=== PATIENT | female | born 1955 | race Caucasian/White ===

== ENCOUNTER → 2016-11-08 | Outpatient (CLI) | payer OTHER ==
--- NOTE | 2016-11-08 08:21 | CT ---
EXAMINATION TYPE: CT chest wo con DATE OF EXAM: 11/08/2016 6:55 AM COMPARISON: NONE HISTORY: Abn CXR CT DLP: 597.7 mGycm Automated exposure control for dose reduction was used. FINDINGS: Single sclerotic lesion is seen within the left rib cage is nonspecific. There is no pneumothorax, pleural effusion or focal pneumonia. Heart is enlarged and there is coronar y artery calcification. There is tiny punctate nodularity seen within the right lower lobe which is n onspecific could be postinflammatory. Additional 4 mm nodule right middle lobe axial image 33. There appears to be a larger nodule in the medial segment right lower lobe measuring 1.4 cm. Images of the upper abdomen are limited. Appears to be a fat-containing subxiphoid hernia. Atheroscle rotic change aorta. There is a large 2 cm right thyroid nodule. IMPRESSION: 1. THERE IS A 1.4 CM RIGHT LOWER LOBE NODULE. ADDITIONAL LESS THAN 5 MM MULTIPLE PULMONARY NODULES AR E SEEN BILATERALLY GREATER ON THE RIGHT. FINDINGS ARE NONSPECIFIC RECOMMEND PET SCAN. 2. CARDIOMEGALY AND CORONARY ARTERY CALCIUM 3. SINGLE AREA OF SCLEROTIC CHANGE INVOLVING THE LEFT RIB CAGE IS NONSPECIFIC. 4. 2 CM RIGHT THYROID NODULE.
== END | disposition home or self-care (01) ==
LOC: RADCTMAIN 06:38
PROVIDERS: ATTEND Family Medicine
DX: R91.1 Solitary pulmonary nodule (principal); I51.7 Cardiomegaly; J84.10 Pulmonary fibrosis, unspecified
CPT/HCPCS: 71250

== ENCOUNTER → 2016-11-19 | Outpatient (CLI) | payer OTHER ==
--- NOTE | 2016-11-19 11:58 | PE ---
EXAMINATION TYPE: PET CT fusion whole body DATE OF EXAM: 11/19/2016 10:10 AM CLINICAL HISTORY: TECHNIQUE: Following the intravenous administration of mCi of F-18 FDG, whole body images are perfor med from the skull base to the midthigh. Images are reviewed on the computer in the coronal, axial, and sagittal planes. Reconstructed rotating images are created on independent workstation and review ed on the computer. A localization and attenuation correction CT is performed in conjunction with t he PET scan. Glucose level: mg/dL COMPARISON: None. FINDINGS: PET: The 2.3 cm right thyroid nodule shows no discrete FDG uptake. The 1.3 cm right lower lobe pulmonary nodule is demonstrated but shows no discrete FDG uptake. Additi onal scattered 5 mm and smaller pulmonary nodules are too small for adequate PET characterization. Mild heterogeneous liver uptake likely physiologic variation. Intense activity in the region of the cecum, maximal SUV 9.[address] abnormality. Scatter ed additional variable moderate to intense bowel activity is also present such as involving lower ant erior abdominal small bowel loops with maximum SUV 15.1. Findings likely physiologic muscular activit y. Disk-rp-uifxppty uptake at the right gluteal insertion suggesting gluteal insertional tendinopathy. Otherwise, there is physiologic FDG uptake throughout the neck, chest, abdomen, and pelvis. ATTENUATION CORRECTION CT: Visualized paranasal sinuses and mastoid air cells are clear. No cervical lymphadenopathy. Right thyr oid nodule as above. Heart is borderline enlarged without pericardial effusion. Borderline ectasia of the ascending aorta 3.5 cm with conventional arch vessel branching anatomy. No thoracic lymphadenopathy. Right lower lobe 1.3 cm pulmonary nodule is noted to have enlarged from 07/17/2011 where it measured 6 mm. There is mosaic attenuation throughout the lungs suggesting air trapping and small airways dise ase. Mild emphysematous change. Scattered 5 mm and smaller pulmonary nodules seen on recent CT of 10/26 are not well delineated on the attenuation correction CT. There is narrowing of the trachea a nd mainstem bronchi probably due to expiratory imaging and emphysema. No consolidation or pleural eff usion. Slightly diminished attenuation of the hepatic parenchyma suggesting mild hepatic steatosis. Previous ventral abdominal wall hernia repair. The hernia repair appears to be bulging anteriorly by omental fat but still enclosed by the mesh, similar to 2011. No dilated small bowel, free fluid, or free air. No mesenteric or retroperitoneal lymphadenopathy. Since 2010, there has been interval repair of the infraumbilical ventral hernia but with a persisting small hernia enclosed by the mesh. This hernia contains a short segment of small bowel loop. Bladder is nondistended. Uterus surgically absent. Neither ovaries are visualized. No abnormal fluid collect ion in the pelvis. Bones: Degenerative changes at the hips and lower lumbar spine. Endplate spondylosis mid to lower tho racic spine. No osseous destructive process. IMPRESSION: 1. While the 1.3 cm right lower lobe pulmonary nodule has enlarged from 2011 where it measured 6 mm, no discrete hypermetabolism is seen. For the time being, recommend 6, 12, and 24 month follow-up exam s in order to monitor this pulmonary nodule as well as the other 5 mm and smaller pulmonary nodules s een on recent CT. 2. COPD with mild emphysema and prominent air trapping. 3. A 2.3 cm right thyroid nodule shows no discrete hypermetabolism suggesting a benign nodule or cyst .
== END | disposition home or self-care (01) ==
LOC: RADPETMAIN 07:28
PROVIDERS: ATTEND Family Medicine
DX: J43.9 Emphysema, unspecified (principal); R91.1 Solitary pulmonary nodule; E04.1 Nontoxic single thyroid nodule
CPT/HCPCS: 78816; A9552

== ENCOUNTER → 2016-11-23 | Outpatient (CLI) | payer OTHER ==
--- NOTE | 2016-11-23 08:02 | US ---
EXAMINATION TYPE: US thyroid st tissue head/neck DATE OF EXAM: 11/23/2016 7:08 AM COMPARISON: NONE CLINICAL HISTORY: E04.1 Thyroid Nodule. 61-year-old female reports imaging study that showed a thyroi d nodule, no prior thyroid evaluation GLAND SIZE: Right Lobe: 5.9 x 2.7 x 2.5 cm Overall Parenchyma: heterogenous Left Lobe: 4.8 x 1.8 x 1.3 cm Overall Parenchyma: homogeneous Isthmus Thickness: 0.2 cm NODULES RIGHT: # of nodules measured on right: 4 1. 1.3 X 0.7 x 0.9 cm hypoechoic solid nodule at the upper pole with well-defined margins. This no dule is wider than tall and shows intranodular vascularity. Prior size: no previous 2. 2.9 X 2.2 x 2.1 cm complex cystic nodule at the mid pole with well-defined margins. This nodule is wider than tall and shows no intranodular vascularity. Prior size: no previous 3. 2.3 X 1.7 x 2.2 cm hypoechoic solid nodule at the lower pole with well-defined margins. This nod ule is wider than tall and shows intranodular vascularity. Prior size: no previous 4. 0.8 X 0.5 x 0.7 cm hypoechoic probably cystic nodule at the anterior mid pole with well-defined m argins. This nodule is wider than tall and shows no intranodular vascularity. Prior size: no previous LEFT: # of nodules measured on left: 1 1. 1.0 X 1.1 x 0.8 cm hypoechoic solid nodule at the mid pole with well-defined margins. This nodu le is wider than tall and shows no intranodular vascularity. Prior size: no previous ISTHMUS: # of nodules measured in the isthmus: 0 Bilateral neck scanned, no abnormal lymphadenopathy noted. IMPRESSION: 1. Findings likely represent multinodular goiter. 2. Four nodules are present on the right measuring up to 2.9 cm and one on the left measuring up to 1 .1 cm. Biopsy can be considered. However, given that these showed no discrete FDG uptake on the patie nt's recent PET CT, consider the alternative of ultrasound follow-up.
== END | disposition home or self-care (01) ==
LOC: RADUSWWP 06:48
PROVIDERS: ATTEND Family Medicine
DX: E04.2 Nontoxic multinodular goiter (principal)
CPT/HCPCS: 76536

== ENCOUNTER → 2017-03-16 | Outpatient (CLI) | payer OTHER ==
--- NOTE | 2017-03-16 12:42 | XR ---
EXAMINATION TYPE: XR chest 2V DATE OF EXAM: 03/16/2017 COMPARISON: 07/18/2011, 09/07/2017 TECHNIQUE: PA and lateral views submitted. HISTORY: Pulmonary nodule FINDINGS: The lungs are clear and there is no pneumothorax, pleural effusion, or focal pneumonia. There is a nodular density along the right lung base measuring approximately 1.4 cm. Hypertrophic and degenerati ve change of the spine. Heart is mildly prominent. IMPRESSION: 1. No acute process. Right lower lobe pulmonary nodule as noted by previous CT scan
--- NOTE | 2017-03-16 13:17 | US ---
EXAMINATION TYPE: US venous Doppler duplex LE BI DATE OF EXAM: 03/16/2017 11:13 AM COMPARISON: NONE CLINICAL HISTORY: I10 Hypertension M79.89 Leg Swelling. Bilateral LE swelling x 1.5 months, cardiac murmur, HTN SIDE PERFORMED: Bilateral TECHNIQUE: The lower extremity deep venous system is examined utilizing real time linear array sonog tavares with graded compression, Doppler sonography and color-flow sonography. VESSELS IMAGED: Common Femoral Vein Deep Femoral Vein Greater Saphenous Vein * Femoral Vein Popliteal Vein Small Saphenous Vein * Proximal Calf Veins (* superficial vessels) Right Leg: Negative for DVT Left Leg: Negative for DVT Bilateral edema channels are noted within 2cm of skin tissue. No popliteal fossa lesion is seen. IMPRESSION: THIS EXAMINATION IS NEGATIVE FOR DVT WITHIN BOTH LEGS.
== END | disposition home or self-care (01) ==
LOC: RADUSWWP 11:10
PROVIDERS: ATTEND Family Medicine
DX: R91.1 Solitary pulmonary nodule (principal); I10 Essential (primary) hypertension; M79.89 Other specified soft tissue disorders
CPT/HCPCS: 71020; 93970

== ENCOUNTER → 2017-05-03 | Outpatient (CLI) | payer OTHER ==
--- NOTE | 2017-05-03 11:26 | CT ---
EXAMINATION TYPE: CT chest wo con DATE OF EXAM: 05/03/2017 COMPARISON: Prior CT chest 11/08/2016 HISTORY: Follow up to lung nodule CT DLP: 613.6 mGycm. Automated Exposure Control for Dose Reduction was Utilized. TECHNIQUE: CT scan of the thorax is performed without IV contrast. FINDINGS: LUNGS: The lungs are stable, right lower lobe lung nodule measures approximately 17 mm as on prior ex am. Noncalcified right upper lobe and right lower lobe lung nodules again noted., there is no concern ing parenchymal mass or nodule identified. There is no pleural effusion or pneumothorax seen. The tracheobronchial tree is patent. MEDIASTINUM: Lack of IV contrast is noted to limit evaluation for mediastinal and especially hilar ad enopathy. There are no definitive greater than 1 cm hilar or mediastinal lymph nodes. There is stable cardiomegaly or pericardial effusion is seen. Minimal coronary artery calcification. Questionable pr ominence of the pulmonary artery, correlate for possible pulmonary artery hypertension. OTHER: The liver shows low attenuation possibly due to fatty infiltration. Stable sclerotic rib focus on the left at the sixth rib. IMPRESSION: Stable exam, no significant interval change. Correlate for possible pulmonary artery hype rtension.
== END | disposition home or self-care (01) ==
LOC: RADCTMAIN 09:19
PROVIDERS: ATTEND Internal Medicine Critical Care Medicine
DX: R91.8 Other nonspecific abnormal finding of lung field (principal); Z88.3 Allergy status to other anti-infective agents; Z88.5 Allergy status to narcotic agent
CPT/HCPCS: 71250

== ENCOUNTER → 2017-12-13 | Outpatient (CLI) | payer OTHER ==
[2017-12-13 07:04] LABS: Blood Urea Nitrogen 21 mg/dL (7-17)
--- NOTE | 2017-12-13 09:42 | CT ---
EXAMINATION TYPE: CT chest w con DATE OF EXAM: 12/13/2017 COMPARISON: Prior chest CTs from May 03, 2017 and November 08, 2016. Prior PET/CT November 19, 2016 . Thyroid ultrasound November 23, 2016. HISTORY: Multiple lung nodules CT DLP: 921 mGycm. Automated Exposure Control for Dose Reduction was Utilized. TECHNIQUE: CT scan of the thorax is performed following with IV Contrast, patient injected with 100 mL of Isovue 300. FINDINGS: LUNGS: There is stable ametabolic lobulated nodule medially right lower lobe measuring 1.6 x 0.9 cm c urrent study, not significantly changed in size or appearance from prior exams. Hounsfield units aver age 39 on coronal image 90. No new suspicious nodules or masses are identified. Lungs remain clear wi thout pleural effusion or pneumothorax seen bilaterally. MEDIASTINUM: There are no greater than 1 cm hilar or mediastinal lymph nodes. No pericardial effusi on is seen. There is mild cardiomegaly felt stable. There is suspected stable 1.9 cm lower pole righ t thyroid nodule axial image 77. OTHER: Liver is heterogeneously hypodense consistent with fatty infiltration. There is moderate to se brandy multilevel spurring in the thoracic spine with slight S-shaped scoliotic curvature. IMPRESSION: Stable ametabolic 1.6 x 0.9 cm right lower lobe nodule. No new nodules or adenopathy is e vident.
== END | disposition home or self-care (01) ==
LOC: RADCTMAIN 06:28
PROVIDERS: ATTEND Internal Medicine Critical Care Medicine
DX: R91.8 Other nonspecific abnormal finding of lung field (principal)
CPT/HCPCS: 82565; 84520; 71260; 36415; Q9967

== ENCOUNTER → 2018-06-11 | Outpatient (CLI) | payer OTHER ==
--- NOTE | 2018-06-11 10:22 | CT ---
EXAMINATION TYPE: CT chest w con DATE OF EXAM: 06/11/2018 COMPARISON: 12/13/2017 HISTORY: Multiple Lung Nodules CT DLP: 920.2 mGycm Automated exposure control for dose reduction was used. CONTRAST: CT scan of the chest is performed with IV Contrast, patient injected with 100 mL of Isovue 300. FINDINGS: LUNGS: Lobulated pulmonary nodule right lower lobe is unchanged 0.6 x 1.0 cm versus 1.6 x 1.0 cm prev iously. Lateral segment right middle lobe pulmonary nodule measures 4 mm also unchanged. 2 mm nodule superior segment right lower lobe. MEDIASTINUM: There are no greater than 1 cm hilar or mediastinal lymph nodes. No pericardial effusi on is seen. Thoracic aorta is of normal caliber. The heart is not enlarged. UPPER ABDOMEN: There is evidence of hepatic steatosis. 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 Simple cyst upper pole left kidney. OTHER: Right-sided thyroid nodularity. IMPRESSION: 1. Stable pulmonary nodularity. 2. Stable right thyroid nodule. 3. Fatty liver.
== END | disposition home or self-care (01) ==
LOC: RADCTMAIN 07:51
PROVIDERS: ATTEND Internal Medicine Critical Care Medicine
DX: R91.8 Other nonspecific abnormal finding of lung field (principal)
CPT/HCPCS: 82565; 84520; 71260; 36415; Q9967

== ENCOUNTER → 2018-07-24 | Outpatient (CLI) | payer OTHER ==
[2018-07-24 09:06] VITALS: BP 150/79; PULSE 52; TEMP 97.9; BMI 43.2
--- NOTE | 2018-07-24 09:28 | P.HPOB ---
History of Present Illness H&P Date: 07/24/18 Chief Complaint: The patient is here for her routine gynecologic exam and mammogram. This is a 62-year-old with an LMP of 2003. The patient status post BENJI BSO for benign reasons. The patient is without gynecologic complaints. Review of Systems The patient's weight has been stable over the last year. She denies respiratory , cardiac, or G.I. problems. Past Medical History Past Medical History: Diabetes Mellitus (Type II diabetes), Hyperlipidemia, Hypertension Additional Past Medical History / Comment(s): History of kidney stones. 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 History of Any Multi-Drug Resistant Organisms: None Reported Past Surgical History: Hernia Repair (Abdominal wall hernia), Hysterectomy (BENJI BSO in 2003), Orthopedic Surgery, Tonsillectomy Additional Past Surgical History / Comment(s): eye, thyroid biopsy, colonoscopy 1999 and 2016. Past Psychological History: No Psychological Hx Reported Smoking Status: Never smoker Past Alcohol Use History: Rare (1 to 2 per month) Past Drug Use History: None Reported Additional History: She works at [employer] and will be retiring in 2009. She is . - Past Family History Mother Family Medical History: Cancer (Colon, breast, and renal cancer.), CVA/TIA, Diabetes Mellitus, Myocardial Infarction ([place]) Additional Family Medical History / Comment(s): Two maternal aunts had colon cancer and one maternal aunt had breast cancer. Medications and Allergies Home Medications Medication Instructions Recorded Confirmed Type amLODIPine [Norvasc] 5 mg PO DAILY 01/30/15 07/24/18 History glipiZIDE [Glucotrol] 5 mg PO AC-BID 01/30/15 07/24/18 History metFORMIN HCL 1,000 mg PO BID 01/30/15 07/24/18 History Aspirin PO DAILY 07/24/18 History Atorvastatin [Lipitor] PO DAILY 07/24/18 History Ferrous Sulfate [Iron (65 MG PO DAILY 07/24/18 History Elemental)] Furosemide [Lasix] PO DAILY 07/24/18 History Levothyroxine Sodium [Synthroid] PO DAILY 07/24/18 History Lisinopril [Zestril] PO DAILY 07/24/18 History Ubidecarenone [Co Q-10] PO DAILY 07/24/18 History sitaGLIPtin [Januvia] mg PO DAILY 07/24/18 History Allergies Allergy/AdvReac Type Severity Reaction Status Date / Time codeine Allergy Swelling Verified 07/24/18 09:02 latex Allergy Rash/Hives Verified 07/24/18 09:02 Exam Vital Signs Temp Pulse BP 07/24/18 09:03 97.9 F 52 L 150/79 Intake and Output 07/23/18 07/24/18 07/24/18 22:59 06:59 14:59 Other: Weight 121.563 kg Height 5'6", weight 268 pounds, BMI 43.3. This is a well-developed well-nourished obese white female who is alert and oriented times 3 in no acute distress. HEENT: Within normal limits. NECK: Supple without mass or thyromegaly. CHEST AND LUNGS: Clear to auscultation. HEART: Regular rate and rhythm. BREASTS: Are without mass or discharge. AXILLARY EXAM: Negative for adenopathy. BACK: Negative for CVA tenderness. ABDOMEN: Soft, obese, nontender, without palpable masses. PELVIC EXAM: External genitalia appears normal with mild atrophy. Vagina appears normal with mild atrophy. There is no evidence of prolapse. Bimanual examination is negative for mass or tenderness. Bimanual examination is somewhat limited secondary to her size. RECTAL EXAM: Rectovaginal exam is negative for mass or tenderness and is negative for occult blood. EXTREMITIES: Nontender. IMPRESSION: 1. 62-year-old menopausal female status post BENJI BSO for benign reasons with normal gynecologic exam. PLAN: 1. Pap smears have been discontinued. 2. Self breast awareness was discussed with the patient. 3. Screening mammogram will be done today. 4. Osteoporosis prevention was discussed. Previous bone density testing was normal and plan on repeating this in approximately 2021. 5. She will return in one year.
--- NOTE | 2018-07-26 11:11 | MM ---
Reason for exam: screening (asymptomatic). Last mammogram was performed 1 year ago. History: Patient is postmenopausal. Family history of breast cancer in mother at age 72 and breast cancer in aunt at age 72. MG Screening Mammo w CAD Bilateral CC and MLO view(s) were taken. Prior study comparison: July 18, 2017, bilateral MG 3d screening mammo w/cad. July 06, 2016, bilateral MG 3d screening mammo w/cad. There are scattered fibroglandular densities. There are suspicious multiple varied sized densities in the left breast medial on the CC view 5 nipple. Chronic nodularity bilateral. Finding is changed when compared to previous studies. ASSESSMENT: Incomplete: need additional imaging evaluation, BI-RAD 0 RECOMMENDATION: Ultrasound of the left breast.
== END | disposition home or self-care (01) ==
LOC: WWCWWP 08:31
PROVIDERS: ATTEND Obstetrics & Gynecology
DX: Z12.31 Encounter for screening mammogram for malignant neoplasm of breast (principal)
CPT/HCPCS: 77067

== ENCOUNTER → 2018-08-14 | Outpatient (CLI) | payer OTHER ==
--- NOTE | 2018-08-14 11:42 | USB ---
Reason for exam: additional evaluation requested from abnormal screening. History: Patient is postmenopausal. Family history of breast cancer in mother at age 72 and breast cancer in aunt at age 72. Physical Findings: Nurse Summary: left breast superficial area medial near old scar, all soft, nodular, movable (nurse ts). US Breast Workup LT Left complete breast ultrasound includes all four quadrants, the retroareolar region and axilla. Finding demonstrates a 0.6 x 0.3 x 0.4cm cystic cluster at 2 o'clock, a 0.4 x 0.3 x 0.6cm lesion too small to characterize at 6 o'clock, biopsy and assess on post biopsy mammogram for correlation of inferior asymmetry, a 0.5 x 0.5 x 0.4cm cystic cluster at 9 o'clock, a 1.9 x 1.3 x 2.1cm lipoma at 10 o'clock and a 0.9 x 0.4 x 0.3cm cystic cluster at 11 o'clock. These results were verbally communicated with the patient and result sheet given to the patient on 08/14/18. ASSESSMENT: Suspicious, BI-RAD 4 RECOMMENDATION: Ultrasound core biopsy of the left breast. (6 o'clock) Called Dr. Blanton with mammographic findings and has scheduled an appointment for the patient for 09/12/18 at 4:[address] Franco. Biopsy scheduled for 08/27/18 at 2:00. PRELIMINARY REPORT CALLED AND FAXED TO DR. FRANCO ON 08/14/18.
== END | disposition home or self-care (01) ==
LOC: RADUSWWP 08:33
PROVIDERS: ATTEND Obstetrics & Gynecology
DX: R92.8 Other abnormal and inconclusive findings on diagnostic imaging of breast (principal)

== ENCOUNTER → 2018-08-27 | Day surgery (SDC) | payer OTHER ==
[2018-08-27 13:25] VITALS: RESP 16; BMI 41.9
[2018-08-27 14:38] VITALS: BP 104/57; PULSE 67; TEMP 98.9
--- NOTE | 2018-08-27 15:23 | USB ---
EXAMINATION TYPE: US biopsy breast VAD LT, MG diagnostic mammo LT wo CAD DATE OF EXAM: 08/27/2018 CLINICAL HISTORY: R92.8 ABN MAMMO. TECHNIQUE: Ultrasound guided core biopsy of left breast. COMPARISON: 08/14/2018 FINDINGS: The procedure of ultrasound guided core biopsy was explained to the patient. Benefits, alternatives, and risks were discussed. An informed consent was then obtained. Preprocedural timeout was performed. The patient was placed in supine positioning for imaging and for the procedure. The overlying skin was prepped and draped in usual sterile fashion. 10 cc of lidocaine buffered with bicarbonate was used as anesthetic into the skin and subcutaneous tissue up to the 6:00 position in the left breast. On preprocedural scanning note is made of multiple similar-appearing nearly anechoic subcentimeter lesions that did not demonstrate clear increased through transmission. As noted on the prior ultrasound of 08/14/2018 the most elongated and larger of these appear to correlate with a new mammographic mass and therefore biopsy was recommended. The nearly hypoechoic elongated mass collapse after the biopsy device pierced the cyst wall. Air is seen on the post biopsy mammogram and the previously seen new posterior depth mass is no longer visualized at the site of this collapsed cyst. Subsequently an additional adjacent hypoechoic mass was biopsied as this mass did not collapse after insertion of the biopsy device. However after 1 biopsy was taken to the mass did collapse, compatible with another cyst. Ribbon biopsy marker was placed at this location. The patient tolerated the procedure well without any immediate complication. The patient was kept in the radiology department for short stay after the procedure and then discharged home in stable condition. IMPRESSION: Successful, uncomplicated ultrasound guided core biopsy of a cyst with collapse after one sample was obtained and collapse of the adjacent cyst after the biopsy device was placed, full pathology results to follow. Multiple other similar-appearing left breast masses are seen, therefore also likely small cysts. Precautionary 6 month follow-up would be recommended pending pathology results. Pathology Results: Benign LEFT BREAST, 6:00, ULTRASOUND GUIDED CORE BIOPSY: Fat necrosis with inflammation and fibrosis. Negative for malignancy. Recommendation Follow up ultrasound of the left breast in 6 months. RAGHAVD
== END ==
LOC: RADUSWWP 12:47
PROVIDERS: ATTEND Surgery
DX: R92.8 Other abnormal and inconclusive findings on diagnostic imaging of breast (principal); N60.32 Fibrosclerosis of left breast
CPT/HCPCS: 88305; 77065; 19083; A4648; J2001

== ENCOUNTER → 2019-04-01 | Outpatient (CLI) | payer OTHER ==
--- NOTE | 2019-04-01 12:00 | MM ---
Reason for exam: follow-up at short interval from prior study. Last mammogram was performed 7 months ago. History: Patient is postmenopausal. Family history of breast cancer in mother at age 72 and breast cancer in aunt at age 72. Benign US biopsy breast VAD LT of the left breast, August 27, 2018. Physical Findings: Nurse did not find any significant physical abnormalities on exam. MG Diagnostic Mammo LT w CAD CC and ML view(s) were taken of the left breast. Prior study comparison: August 27, 2018, left breast MG diagnostic mammo LT wo CAD. July 24, 2018, bilateral MG screening mammo w CAD. There are scattered fibroglandular densities. Previous mammotome biopsy right breast from 6 month ago. The previous medial asymmetric density has resolved. No significant new finding when compared with prior studies. These results were verbally communicated with the patient and result sheet given to the patient on 04/01/19. ASSESSMENT: Benign, BI-RAD 2 RECOMMENDATION: Return to routine screening mammogram schedule for both breasts.
--- NOTE | 2019-04-01 12:08 | USB ---
Reason for exam: follow-up at short interval from prior study. History: Patient is postmenopausal. Family history of breast cancer in mother at age 72 and breast cancer in aunt at age 72. Benign US biopsy breast VAD LT of the left breast, August 27, 2018. Physical Findings: Nurse did not find any significant physical abnormalities on exam. US Breast LT Left complete breast ultrasound includes all four quadrants, the retroareolar region and axilla. Finding demonstrates a 0.4 x 0.3 x 0.3 cm to small to characterizes lesion at 6 o'clock that may correspond to the biopsy site of fat necrosis. A 0.8 x 0.3 x 0.4 cm cystic cluster lesion at 11 o'clock. And a Stable 1-5 cm lipoma at the 10 o'clock. These results were verbally communicated with the patient and result sheet given to the patient on 04/01/2019. ASSESSMENT: Incomplete: need additional imaging evaluation, BI-RAD 0 RECOMMENDATION: Special view mammogram of the left breast.
== END | disposition home or self-care (01) ==
LOC: RADUSWWP 08:49
PROVIDERS: ATTEND Family Medicine
DX: R92.8 Other abnormal and inconclusive findings on diagnostic imaging of breast (principal)
CPT/HCPCS: 77065

== ENCOUNTER → 2019-09-10 | Outpatient (CLI) | payer OTHER ==
--- NOTE | 2019-09-10 09:01 | MM ---
Reason for exam: screening (asymptomatic). Last mammogram was performed 5 months ago. History: Patient is postmenopausal. Family history of breast cancer in mother at age 72 and breast cancer in aunt at age 72. Benign US biopsy breast VAD LT of the left breast, August 27, 2018. Physical Findings: A clinical breast exam by your physician is recommended on an annual basis and results should be correlated with mammographic findings. MG Screening Mammo w CAD Bilateral CC and MLO view(s) were taken. Prior study comparison: April 01, 2019, left breast MG diagnostic mammo LT w CAD. August 27, 2018, left breast MG diagnostic mammo LT wo CAD. The breast tissue is heterogeneously dense. This may lower the sensitivity of mammography. Finding: There is a 5 mm circumscribed oval mass in the anterior position of the left breast. Previous mammotome biopsy in the left breast. There is a chronic nodularity bilaterally, greater in the right breast. New finding since April 01, 2019 and August 27, 2018. ASSESSMENT: Incomplete: need additional imaging evaluation, BI-RAD 0 RECOMMENDATION: Ultrasound of the left breast. [facility] will attempt to contact patient to return for ultrasound.
== END | disposition home or self-care (01) ==
LOC: RADMAMWWP 06:49
PROVIDERS: ATTEND Family Medicine
DX: Z12.39 Encounter for other screening for malignant neoplasm of breast (principal)
CPT/HCPCS: 77067

== ENCOUNTER → 2019-09-26 | Outpatient (CLI) | payer OTHER ==
--- NOTE | 2019-09-26 09:16 | USB ---
Reason for exam: additional evaluation requested from abnormal screening. History: Patient is postmenopausal. Family history of breast cancer in mother at age 72 and breast cancer in aunt at age 72. Benign US biopsy breast VAD LT of the left breast, August 27, 2018. Physical Findings: Nurse did not find any significant physical abnormalities on exam. US Breast Workup LT Left complete breast ultrasound includes all four quadrants, the retroareolar region and axilla. Finding demonstrates a 5 x 3 x 3mm oval, mixed lesion at 2 o'clock possibly on 08/14/18 exam ( 6 x 3 x 4mm), a 2 x 2 x 2mm oval probable cyst at 9 o'clock, a 5 x 4 x 5mm oval, cystic lesion at 10 o'clock and a 9 x 2 x 4mm cystic cluster at 11 o'clock. These results were verbally communicated with the patient and result sheet given to the patient on 09/26/19. ASSESSMENT: Probably benign, BI-RAD 3 RECOMMENDATION: Ultrasound of the left breast in 6 months. Attn: 9 o'clock and 3 o'clock
== END | disposition home or self-care (01) ==
LOC: RADUSWWP 07:19
PROVIDERS: ATTEND Family Medicine
DX: R92.8 Other abnormal and inconclusive findings on diagnostic imaging of breast (principal)

== ENCOUNTER → 2019-10-07 | Outpatient (CLI) | payer OTHER ==
--- NOTE | 2019-10-07 09:27 | US ---
EXAMINATION TYPE: US kidneys/renal and bladder DATE OF EXAM: 10/07/2019 COMPARISON: CT 2010 CLINICAL HISTORY: E83.52 Hypercalcemia R10.9 Right flank pain...... History of kidney stones, hyperca lcemia, abnormal kidney function, elevated uric acid in blood. EXAM MEASUREMENTS: Right Kidney: 10.1 x 5.2 x 5.7 cm Left Kidney: 11.1 x 5.8 x 5.4 cm Difficult and limited study due to morbidly obese patient Right Kidney: limited visualization, no hydronephrosis or masses seen Left Kidney: limited visualization, 1.8cm hypoechoic area superior pole. No gross hydronephrosis. Bladder: wnl Bilateral Jets seen: no No gross nephrolithiasis of either kidney. IMPRESSION: Limited exam due to patient body habitus. Given the marked limitation of the study there is no gross evidence of hydronephrosis or. Possible 1.8 cm left superior renal lesion that should be further characterized with three-phase CT abdomen. 1.
== END | disposition home or self-care (01) ==
LOC: RADUSWWP 08:01
PROVIDERS: ATTEND Family Medicine
DX: E83.52 Hypercalcemia (principal); N28.9 Disorder of kidney and ureter, unspecified; E79.0 Hyperuricemia without signs of inflammatory arthritis and tophaceous disease; R10.9 Unspecified abdominal pain
CPT/HCPCS: 76770

== ENCOUNTER → 2019-10-23 | Outpatient (CLI) | payer OTHER ==
--- NOTE | 2019-10-23 13:44 | CT ---
EXAMINATION TYPE: CT abdomen wo/w con DATE OF EXAM: 10/23/2019 COMPARISON: Ultrasound 10/07/[address] chest 06/11/2018 HISTORY: 64-year-old female abnormal ultrasound findings. TECHNIQUE: Contiguous axial scanning of the abdomen before and following administration of 100 ml Iso yohana 300 IV contrast. Delayed images through the kidneys and coronal/sagittal reconstructions perform ed. CT DLP: 5017.7 mGycm Automated exposure control for dose reduction was used. FINDINGS: Heart is upper limits of normal in size. A 1.5 cm medial right basilar pulmonary nodule, axial image 6 appears unchanged from 06/11/2018. Howev er, we do know growth from 2010 where it measured 6 cm. Liver enlarged at 20.1 cm craniocaudal with low-attenuation suggesting fatty infiltration. No focal l esion seen. The venous system is patent. An indeterminate 2.1 cm nodule along the right side of the gallbladder fossa was present back on 12/13 compatible with a benign etiology. Gallbladder, adrenal glands, spleen, and pancreas appear within normal limits. [place] renal arteries. Right kidney is slightly malrotated. Indeterminate 1.3 cm hypodensity poste rior right kidney, too small for accurate CT characterization. 1.3 and 9 mm upper pole cortical hypodensities within the left kidney are also too small for accurate CT characterization. These should be reassessed at follow-up. No dilated small bowel, free fluid, or free air. No mesenteric or retroperitoneal lymphadenopathy. Pr evious mesh repair at the umbilicus. Mild stool burden. Normal appendix. No pericolonic inflammatory change. Bones: Facet arthropathy mid to lower lumbar spine. IMPRESSION: 1. INDETERMINATE 1.3 CM RIGHT RENAL LESION AND INDETERMINATE 1.3 AND 9 MM LEFT RENAL LESIONS. THESE M OST LIKELY REPRESENT SMALL CORTICAL CYSTS. SIX-MONTH FOLLOW-UP CONTRAST ENHANCED CT RECOMMENDED TO EN SURE STABILITY AND EXCLUDE THE POSSIBILITY OF SMALL EARLY SOLID MASSES. 2. A 1.5 CM RIGHT LOWER LOBE PULMONARY NODULE SHOWS VERY INDOLENT BEHAVIOR. IT IS RELATIVELY UNCHANGE D FROM 06/11/2018 BUT MEASURED 6 MM IN 2010. ANNUAL SURVEILLANCE IS RECOMMENDED GIVEN THE SLOW GROWTH. 3. HEPATOMEGALY (20.1 CM) WITH HEPATIC STEATOSIS.
== END | disposition home or self-care (01) ==
LOC: RADCTMAIN 09:58
PROVIDERS: ATTEND Family Medicine
DX: K76.0 Fatty (change of) liver, not elsewhere classified (principal); R91.1 Solitary pulmonary nodule
CPT/HCPCS: 82565; 84520; 74170; 36415; Q9967

== ENCOUNTER → 2020-04-14 | Outpatient (CLI) | payer OTHER ==
--- NOTE | 2020-04-14 10:43 | USB ---
Reason for exam: follow-up at short interval from prior study. History: Patient is postmenopausal. Family history of breast cancer in mother at age 72 and breast cancer in aunt at age 72. Benign US biopsy breast VAD LT of the left breast, August 27, 2018. Physical Findings: Nurse did not find any significant physical abnormalities on exam. US Breast Limited LT Left limited breast ultrasound including focal area of concern, retroareolar and axilla demonstrates a 0.5 x 0.6 x 0.3cm cystic lesion at 10 o'clock. Scanned 9-3 o'clock. These results were verbally communicated with the patient and result sheet given to the patient on 04/14/20. ASSESSMENT: Benign, BI-RAD 2 RECOMMENDATION: Follow-up diagnostic mammogram of both breasts in 5 months. Back on schedule for August 2020.
== END | disposition home or self-care (01) ==
LOC: RADUSWWP 08:52
PROVIDERS: ATTEND Family Medicine
DX: R92.8 Other abnormal and inconclusive findings on diagnostic imaging of breast (principal)

== ENCOUNTER → 2020-04-24 | Outpatient (CLI) | payer OTHER ==
[2020-04-24 15:17] VITALS: BP 132/80; PULSE 67; RESP 18; TEMP 98.5
--- NOTE | 2020-04-24 15:25 | P.GSHP ---
History of Present Illness H&P Date: 04/24/20 Chief Complaint: abnormal mammogram and ultrasound of hte left breast Sarita is a 64 year old white female seen in consultation for DR. Efrem Montana regarding a radiographic abnormality in her left breast. She had a bilateral mammogram performed in August 2019. This revealed a 5 mm circumscribed mass in the anterior position of the left breast. Previous mammotome biopsy had been performed in the left breast which was benign. Chronic medullary was noted in the left breast ultrasound was recommended. Left breast ultrasound was performed on 720 120. This revealed a 0.5 x 0.6 cm cystic lesion felt to be benign and follow-up mammogram of both breasts to 5 m onths was recommended. Patient August 2018 she underwent a left breast ultrasound-guided core biopsy which revealed fat necrosis with inflammation and fibrosis. At this time the patient is not complaining of any lumps masses or nodules in her breast. She is not complaining of any nipple discharge. She is not complaining of any breast pain. She has no history of any recent trauma or infection in the breast. In the remote past she did have some trauma to the left inner aspect of the breast but this was many years ago. Her most recent radiographic studies ultrasound of the left breast which revealed a 0.5 x 0.6 cm cystic lesion at 10:00. This was felt to be benign BIRADS 2 and bilateral mammogram of both breasts to 5 months is recommended. Patient has regular colonoscopies, and was told she does not need to go back and tissue 66. CAffiene: tea daily 2 cups Nicotine: Negative Theophylline: Fairly Hormones: Negative Family history: Mother: colon cancer, kidney cancer, breast cancer maternal aunts two: Breast and colon cancer in 2 aunts maternal uncle: stomach cancer History: Menarche: 9 09/26 breast fed: yes, age at first : 23 menopasue: BENJI at 49 not for cancer BCP: 1 year hormones: none Surgical history: 1. Total abdominal hysterectomy 2. Right 3. Right knee 4. Hernia repair 5. Tonsillectomy 6. Left breast ultrasound-guided core biopsy Medical history: Diabetes High blood pressure High cholesterol Hypothyroid gout anemia heart murmur Social History: smoke: none alcohol: rare drugs: none - Constitutional Constitutional: Denies chills, Denies fever - EENT Eyes: denies blurred vision, denies pain Ears: right: decreased hearing, deny: tinnitus Ears, nose, mouth and throat: Denies headache, Denies sore throat - Breasts Breasts: bilateral: as per HPI - Cardiovascular Cardiovascular: Denies chest pain, Denies shortness of breath - Respiratory Respiratory: Denies cough, Denies 7 - Gastrointestinal Gastrointestinal: Denies abdominal pain, Denies diarrhea, Denies nausea, Denies vomiting - Genitourinary (Female) Genitourinary: Reports kidney stones, Denies dysuria, Denies hematuria - Menstruation Menstruation: Reports post hysterectomy - Musculoskeletal Musculoskeletal: Denies myalgias - Integumentary Integumentary: Denies pruritus, Denies rash - Neurological Neurological: Denies numbness, Denies weakness - Psychiatric Psychiatric: Denies anxiety, Denies depression - Endocrine Endocrine: Denies fatigue, Denies weight change - Hematologic/Lymphatic Comment: aspirin - Allergic/Immunologic Allergic/Immunologic: Reports as per HPI Past Medical History Past Medical History: Diabetes Mellitus, Hyperlipidemia, Hypertension, Thyroid Disorder Additional Past Medical History / Comment(s): History of kidney stones. 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 benign ovarian tumor. Heart murmor History of Any Multi-Drug Resistant Organisms: None Reported Past Surgical History: Hernia Repair, Hysterectomy, Orthopedic Surgery, Tonsillectomy Additional Past Surgical History / Comment(s): eye, thyroid biopsy, colonoscopy 1999 and 2016. Past Anesthesia/Blood Transfusion Reactions: No Reported Reaction Past Psychological History: No Psychological Hx Reported Past Alcohol Use History: Rare Past Drug Use History: None Reported - Past Family History Mother Family Medical History: Cancer, CVA/TIA, Diabetes Mellitus, Myocardial Infarction ([place]) Additional Family Medical History / Comment(s): Two maternal aunts had colon cancer and one maternal aunt had breast cancer. Medications and Allergies Home Medications Medication Instructions Recorded Confirmed Type amLODIPine [Norvasc] 5 mg PO DAILY 01/30/15 08/27/18 History glipiZIDE [Glucotrol] 5 mg PO AC-BID 01/30/15 08/27/18 History metFORMIN HCL 1,000 mg PO BID 01/30/15 08/27/18 History Aspirin 1 each PO DAILY 07/24/18 08/27/18 History Atorvastatin [Lipitor] 1 each PO DAILY 07/24/18 08/27/18 History Ferrous Sulfate [Iron (65 MG 1 each PO DAILY 07/24/18 08/27/18 History Elemental)] Furosemide [Lasix] 1 each PO DAILY 07/24/18 08/27/18 History Levothyroxine Sodium [Synthroid] 1 each PO DAILY 07/24/18 08/27/18 History Ubidecarenone [Co Q-10] 1 each PO DAILY 07/24/18 08/27/18 History lisinopriL [Zestril] 1 each PO DAILY 07/24/18 08/27/18 History Allergies Allergy/AdvReac Type Severity Reaction Status Date / Time bee venom protein (honey bee) Allergy Swelling Verified 08/27/18 13:14 codeine Allergy Swelling Verified 08/27/18 13:14 latex Allergy Rash/Hives Verified 08/27/18 13:14 Surgical - Exam BMI 47.5 BMI - General obese - Eyes normal ocular movement - ENT no congestion - Neck no masses, trachea midline - Respiratory normal respiratory effort, clear to auscultation - Cardiovascular Rhythm: regular Heart Sounds: normal: S1, S2 - Abdomen Abdomen: soft, non tender, no guarding, no rigid, no rebound - Integumentary normal turgor dark nevus bra line mid back - Neurologic no disoriented, no combative - Musculoskeletal normal gait - Psychiatric oriented to time, oriented to person, oriented to place, speech is normal, memory intact breast exam: BRA: 44B inspection: ptosis grade 2/3 Palpation: Right breast: Multiple positional exam fibrocystic changes, no dominant masses or nodules of concern Right axilla: No adenopathy of concern Left breast: Multi-positional exam fibrocystic changes, no dominant masses or nodules of concern Left axilla: No adenopathy of concern Results Impression: 1. Assessment and Plan Assessment: Impression: Diabetes High blood pressure High cholesterol Hypothyroid gout anemia heart murmur fibrocystic breast changes Family history of breast cancer no evidence of any radiographic lesion bordered lesion on exam which would require a biopsy of the breast at this time Dark nevus back to be excised Plan: 1. Bilateral mammogram in 5 months with physician exam 2. Patient to call sooner if any questions or concerns 3. Consider genetic testing/ appointment with medical oncology 4. Nevus on back to be excised CC: DR. Gillian Montana encounter 45 minutes, > 50% of time on planning and counselling
== END | disposition home or self-care (01) ==
LOC: WWCWWP 14:47
PROVIDERS: ATTEND Surgery
DX: Z53.9 Procedure and treatment not carried out, unspecified reason (principal)

== ENCOUNTER → 2020-06-18 | Outpatient (CLI) | payer OTHER ==
[2020-06-18 09:00] VITALS: BP 157/82; PULSE 74; RESP 20; TEMP 98.6
--- NOTE | 2020-06-18 09:42 | P.OP ---
Date of Procedure: 06/18/20 Preoperative Diagnosis: Nevus mid back, suspicious Postoperative Diagnosis: same Procedure(s) Performed: Excision of nevus mid back Anesthesia: local Surgeon: Jessica Serrano Pathology: other (Nevus mid back) Condition: stable Disposition: same day Indications for Procedure: Dark nevus midback at bra line Operative Findings: dark nevis Description of Procedure: The patient was brought to the procedure room. She was positioned on the left side. The area of concern in the mid back at the bra line was prepped using Betadine. 10 mL of 1% lidocaine were used to anesthetize the area of concern. Wide excision was performed. The lesion was approximately 2 cm x 1 cm in size. The skin was closed using a 3-year-old nylon suture. The patient tolerated procedure in stable condition. Specimen sent to pathology.
== END | disposition home or self-care (01) ==
LOC: WWCWWP 08:49
PROVIDERS: ATTEND Surgery
DX: L82.1 Other seborrheic keratosis (principal)
CPT/HCPCS: 88305

== ENCOUNTER → 2020-06-26 | Outpatient (CLI) | payer OTHER ==
[2020-06-26 08:52] VITALS: BP 156/80; PULSE 61; RESP 12; TEMP 98.7
--- NOTE | 2020-06-26 09:12 | P.PN ---
Progress Note - Text Progress Note Date: 06/26/20 Sarita is a 64 year old white female status post excision of the lesion on her mid back near the area of the bra line on 920 420. Pathology was consistent with seborrheic keratosis. Postprocedure the patient has done well. Examination: Incision: Clean and dry Plan: May remove several sutures secondary to the fact that this is still under some tension. 4 sutures removed Plan: Follow up next week for removal of remainder sutures I discussed with the patient that this may open slightly if it doesn't heal from the inside out. She has any questions or concerns she will call us sooner. CC: DR. Gillian Gloria
== END | disposition home or self-care (01) ==
LOC: WWCWWP 08:39
PROVIDERS: ATTEND Surgery
DX: Z53.9 Procedure and treatment not carried out, unspecified reason (principal)

== ENCOUNTER → 2020-07-02 | Outpatient (CLI) | payer OTHER ==
[2020-07-02 16:04] VITALS: BP 161/81; PULSE 65; RESP 12; TEMP 98.1
--- NOTE | 2020-07-02 16:09 | P.PN ---
Progress Note - Text Progress Note Date: 07/02/20 Patient comes in for suture removal. She is status post excision of lesion on 920 420. This was seborrheic keratosis. She is doing well Physical exam: Sutures are ready for removal. The area is still somewhat taut. Sutures are removed a small separation in the middle portion of the incision. This is cauterized with silver nitrate stick. Sterile dressing applied. Patient is going to do wound care at home. She will be seen in 2 weeks. cc: Dr. Gillian Maloney
== END | disposition home or self-care (01) ==
LOC: WWCWWP 15:40
PROVIDERS: ATTEND Surgery
DX: Z53.9 Procedure and treatment not carried out, unspecified reason (principal)

== ENCOUNTER → 2020-07-17 | Outpatient (CLI) | payer OTHER ==
[2020-07-17 10:29] VITALS: BP 147/81; PULSE 64; RESP 18; TEMP 98.3
--- NOTE | 2020-07-17 10:41 | P.PN ---
Progress Note - Text Progress Note Date: 07/17/20 Physical 64-year-old white female status post excision of lesion on her mid back near the area of her bra line and 92 420. Pathology was consistent with seborrheic keratosis. The patient is doing well postprocedure the areas clean and healed at this time. Examination: Incision: Clean and dry Follow-up in September after bilateral mammogram Cc: Dr. Yara Maloney
== END | disposition home or self-care (01) ==
LOC: WWCWWP 10:05
PROVIDERS: ATTEND Surgery
DX: Z53.9 Procedure and treatment not carried out, unspecified reason (principal)

== ENCOUNTER → 2020-09-15 | Outpatient (CLI) | payer OTHER ==
--- NOTE | 2020-09-15 11:28 | MM ---
Reason for exam: additional evaluation requested from prior study. Last mammogram was performed 1 year ago. History: Patient is postmenopausal. Family history of breast cancer in mother at age 72 and breast cancer in aunt at age 72. Benign US biopsy breast VAD LT of the left breast, August 27, 2018. Physical Findings: Nurse did not find any significant physical abnormalities on exam. MG Diagnostic Mammo w CAD SANTANA Bilateral CC and MLO view(s) were taken. Prior study comparison: September 10, 2019, bilateral MG screening mammo w CAD. July 24, 2018, bilateral MG screening mammo w CAD. July 18, 2017, bilateral MG 3d screening mammo w/cad. There are scattered fibroglandular densities. There is chronic nodularity bilaterally. No significant new findings when compared with previous films. These results were verbally communicated with the patient and result sheet given to the patient on 09/15/20. ASSESSMENT: Benign, BI-RAD 2 RECOMMENDATION: Routine screening mammogram of both breasts in 1 year.
== END | disposition home or self-care (01) ==
LOC: RADMAMWWP 10:08
PROVIDERS: ATTEND Surgery
DX: R92.8 Other abnormal and inconclusive findings on diagnostic imaging of breast (principal)
CPT/HCPCS: 77066

== ENCOUNTER → 2020-10-01 | Outpatient (CLI) | payer OTHER ==
[2020-10-01 16:04] VITALS: BP 173/80; PULSE 69; RESP 18; TEMP 98.6
--- NOTE | 2020-10-01 16:40 | P.PN ---
Subjective Progress Note Date: 10/01/20 Principal diagnosis: Surveillance fibrocystic breast changes Sarita is a 64 year old white female seen in consultation for DR. Efrem Montana on 04-24-20 regarding a radiographic abnormality in her left breast. She had a bilateral mammogram performed in August 2019. This revealed a 5 mm circumscribed mass in the anterior position of the left breast. Previous mammotome biopsy had been performed in the left breast which was benign. Chronic nodularity was noted in the left breast ultrasound was recommended. [place] [address]. This revealed a 0.5 x 0.6 cm cystic lesion felt to be benign and follow-up mammogram of both breasts in 5 months was recommended. Patient August 2018 she underwent a left breast ultrasound-guided core biopsy which revealed fat necrosis with inflammation and fibrosis. At this time the patient is not complaining of any lumps masses or nodules in her breast. She is not complaining of any nipple discharge. She is not complaining of any breast pain. She has no history of any recent trauma or infection in the breast. In the remote past she did have some trauma to the left inner aspect of the breast but this was many years ago. Her most recent mammogram was on 09-15-20 and was bilateral benign BIRAD 2. Patient has regular colonoscopies, and was told she does not need to go back and tissue 66. CAffiene: tea daily 2 cups Nicotine: Negative Theophylline: rarely Hormones: Negative Family history: Mother: colon cancer, kidney cancer, breast cancer maternal aunts two: Breast and colon cancer in 2 aunts maternal uncle: stomach cancer History: Menarche: 9 1/2 breast fed: yes, age at first : 23 menopasue: BENJI at 49 not for cancer BCP: 1 year hormones: none Surgical history: 1. Total abdominal hysterectomy 2. Right 3. Right knee 4. Hernia repair 5. Tonsillectomy 6. Left breast ultrasound-guided core biopsy Medical history: Diabetes High blood pressure High cholesterol Hypothyroid gout anemia heart murmur Social History: smoke: none alcohol: rare drugs: none - Constitutional Constitutional: Denies chills, Denies fever - EENT Eyes: denies blurred vision, denies pain Ears: right: decreased hearing, deny: tinnitus Ears, nose, mouth and throat: Denies headache, Denies sore throat - Breasts Breasts: bilateral: as per HPI - Cardiovascular Cardiovascular: Denies chest pain, Denies shortness of breath - Respiratory Respiratory: Denies cough - Gastrointestinal Gastrointestinal: Denies abdominal pain, Denies diarrhea, Denies nausea, Denies vomiting - Genitourinary (Female) Genitourinary: Reports kidney stones, Denies dysuria, Denies hematuria - Menstruation Menstruation: Reports post hysterectomy - Musculoskeletal Musculoskeletal: Denies myalgias - Integumentary Integumentary: Denies pruritus, Denies rash - Neurological Neurological: Denies numbness, Denies weakness - Psychiatric Psychiatric: Denies anxiety, Denies depression - Endocrine Endocrine: Denies fatigue, Denies weight change - Hematologic/Lymphatic Comment: aspirin - Allergic/Immunologic Allergic/Immunologic: Reports as per HPI Objective - Vital Signs Vital signs: Vital Signs Temp 98.6 F 10/01/20 15:57 Pulse 69 10/01/20 15:57 Resp 18 10/01/20 15:57 BP 173/80 10/01/20 15:57 Pulse Ox Intake & Output 09/30/20 10/01/20 10/01/20 18:59 06:59 18:59 Weight 131.542 kg - Exam BMI 48.3 - Constitutional General appearance: Present: obese - EENT Eyes: Present: EOMI ENT: Present: hearing grossly normal - Neck Neck: Present: normal ROM - Respiratory Respiratory: bilateral: CTA - Cardiovascular Rhythm: regular Heart sounds: normal: S1, S2 - Gastrointestinal General gastrointestinal: Present: normal bowel sounds, soft - Integumentary Integumentary: Present: normal turgor - Musculoskeletal Musculoskeletal: Present: gait normal - Psychiatric Psychiatric: Present: A&O x's 3 - Additional findings Additional findings: breast exam: BRA: 44B inspection: bilateral grade 2/3 ptosis palpation: Right breast: Multi-positional exam fibrocystic changes no dominant masses or nodules of concern Right axilla: No adenopathy of concern Left breast: Inner medial aspect of the breast is approximately a 1 x 1.5 cm area of nodularity most likely a sebaceous cyst, prominent inframammary ridge no other discrete masses or nodules of concern fibrocystic changes Left axilla: No adenopathy of concern Assessment and Plan Assessment: Impression: Diabetes High blood pressure High cholesterol Hypothyroid gout anemia heart murmur mass left breast fibrocystic breast changes Plan: 1. ultrasound left breast of palpable site 2. follow up after ultrasound 3. bilateral mammogram in 1 year Cc: Dr. Gillian Maloney encounter 15 minutes > 50% of time in planing and counselling
== END | disposition home or self-care (01) ==
LOC: WWCWWP 15:08
PROVIDERS: ATTEND Surgery
DX: Z53.9 Procedure and treatment not carried out, unspecified reason (principal)

== ENCOUNTER → 2020-10-05 | Outpatient (CLI) | payer OTHER ==
--- NOTE | 2020-10-05 09:05 | USB ---
Reason for exam: clinical finding. History: Patient is postmenopausal. Family history of breast cancer in mother at age 72 and breast cancer in aunt at age 72. Benign US biopsy breast VAD LT of the left breast, August 27, 2018. Indicated problem(s): lump or thickening in the left breast. Physical Findings: Nurse Summary: 1.5cm nodule left breast 9-10 o'clock, patient states she noticed this in August 2020 (nurse TM). US Breast LT Left complete breast ultrasound includes all four quadrants, the retroareolar region and axilla. Finding demonstrates a 5 x 4 x 5mm oval, cystic lesion at 1 o'clock (largest). Multiple cysts visualized. Palpable site for medial 9 o'clock near sternum shows an ovoid isoechoic structure, either a prominent lobule of lipoma measuring 4.1 x 3.1 x 1.5cm. These results were verbally communicated with the patient and result sheet given to the patient on 10/05/20. ASSESSMENT: Probably benign, BI-RAD 3 RECOMMENDATION: Ultrasound of the left breast in 3 months. Surgical excision can be considered if any growth or if symptomatic.
== END | disposition home or self-care (01) ==
LOC: RADUSWWP 06:56
PROVIDERS: ATTEND Surgery
DX: N60.02 Solitary cyst of left breast (principal)

== ENCOUNTER → 2020-10-16 | Outpatient (CLI) | payer OTHER ==
[2020-10-16 08:55] VITALS: BP 159/82; PULSE 69; RESP 18; TEMP 98.1
--- NOTE | 2020-10-16 09:20 | P.PN ---
Subjective Progress Note Date: 10/16/20 Principal diagnosis: mass Surveillance fibrocystic breast changes Sarita is a 64 year old white female seen in consultation for DR. Efrem Montana on 04-24-20 regarding a radiographic abnormality in her left breast. She had a bilateral mammogram performed in August 2019. This revealed a 5 mm circumscribed mass in the anterior position of the left breast. Previous mammotome biopsy had been performed in the left breast which was benign. Chronic nodularity was noted in the left breast ultrasound was recommended. Left breast ultrasound was performed on . This revealed a 0.5 x 0.6 cm cystic lesion felt to be benign and follow-up mammogram of both breasts in 5 mon was recommended. Patient August 2018 she underwent a left breast ultrasound-guided core biopsy which revealed fat necrosis with inflammation and fibrosis. At this time the patient is not complaining of any lumps masses or nodules in her breast. She is not complaining of any nipple discharge. She is not complaining of any breast pain. She has no history of any recent trauma or inf ection in the breast. In the remote past she did have some trauma to the left inner aspect of the breast but this was many years ago. Her most recent mammogram was on 09-15-20 and was bilateral benign BIRAD 2. on examination on her appointment of 10-01-20 she was noted to have a palpable mass in the left breast in the inner aspect. As ultrasound was done to evaluate this on 10-05-20 which showed multiple cyst the largest at 1 o clock and a lesion probable lipoma at 9 o clock. The patient states it is not painful now, although it was in the past. Patient has regular colonoscopies, and was told she does not need to go back and tissue 66. CAffiene: tea daily 2 cups Nicotine: Negative Theophylline: rarely Hormones: Negative Family history: Mother: colon cancer, kidney cancer, breast cancer maternal aunts two: Breast and colon cancer in 2 aunts maternal uncle: stomach cancer History: Menarche: 9 09/26 breast fed: yes, age at first : 23 menopasue: BENJI at 49 not for cancer BCP: 1 year hormones: none Surgical history: 1. Total abdominal hysterectomy 2. Right 3. Right knee 4. Hernia repair 5. Tonsillectomy 6. Left breast ultrasound-guided core biopsy Medical history: Diabetes High blood pressure High cholesterol Hypothyroid gout anemia heart murmur Social History: smoke: none alcohol: rare drugs: none - Constitutional Constitutional: Denies chills, Denies fever - EENT Eyes: denies blurred vision, denies pain Ears: right: decreased hearing, deny: tinnitus Ears, nose, mouth and throat: Denies headache, Denies sore throat - Breasts Breasts: bilateral: as per HPI - Cardiovascular Cardiovascular: Denies chest pain, Denies shortness of breath - Respiratory Respiratory: Denies cough - Gastrointestinal Gastrointestinal: Denies abdominal pain, Denies diarrhea, Denies nausea, Denies vomiting - Genitourinary (Female) Genitourinary: Reports kidney stones, Denies dysuria, Denies hematuria - Menstruation Menstruation: Reports post hysterectomy - Musculoskeletal Musculoskeletal: Denies myalgias - Integumentary Integumentary: Denies pruritus, Denies rash - Neurological Neurological: Denies numbness, Denies weakness - Psychiatric Psychiatric: Denies anxiety, Denies depression - Endocrine Endocrine: Denies fatigue, Denies weight change - Hematologic/Lymphatic Comment: aspirin - Allergic/Immunologic Allergic/Immunologic: Reports as per HPI Objective - Vital Signs Vital signs: Vital Signs Temp 98.1 F 10/16/20 08:51 Pulse 69 10/16/20 08:51 Resp 18 10/16/20 08:51 BP 159/82 10/16/20 08:51 Pulse Ox 97 10/16/20 08:51 Intake & Output 10/15/20 10/16/20 10/16/20 18:59 06:59 18:59 Weight 131.542 kg - Exam BMI 46.8 - Constitutional General appearance: Present: obese - EENT Eyes: Present: EOMI ENT: Present: hearing grossly normal - Neck Neck: Present: normal ROM - Respiratory Respiratory: bilateral: CTA - Cardiovascular Rhythm: regular Heart sounds: normal: S1, S2 - Gastrointestinal General gastrointestinal: Present: soft - Integumentary Integumentary: Present: normal turgor - Musculoskeletal Musculoskeletal: Present: gait normal - Psychiatric Psychiatric: Present: A&O x's 3, appropriate affect, intact judgment & insight - Additional findings Additional findings: Left breast examination of the palpable change at the 9 o'clock position which was seen on ultrasound is slightly tender to examination this may represent a sebaceous cyst versus a lipoma which is symptomatic Assessment and Plan Assessment: Impression: Diabetes High blood pressure High cholesterol Hypothyroid gout anemia heart murmur Mass left breast at approximately 9 o'clock position/symptomatic lipoma versus sebaceous cyst Plan: 1. Removal of palpable mass medial breast at 9:00 in the operating room, would not recommend a needle biopsy as a think this may represent a sebaceous cyst 2. Repeat bilateral mammogram in 1 year 3. Medical management of medical conditions CC: Dr. Gillian Maloney encounter 15 minutes, > 50% of time in planning and counselling
== END | disposition home or self-care (01) ==
LOC: WWCWWP 08:31
PROVIDERS: ATTEND Surgery
DX: Z53.9 Procedure and treatment not carried out, unspecified reason (principal)

== ENCOUNTER → 2021-01-08 | Outpatient (CLI) | payer MEDICARE, OTHER ==
[2021-01-08 09:38] VITALS: BP 142/88; PULSE 58; RESP 20; TEMP 97.7
--- NOTE | 2021-01-08 09:46 | P.PN ---
Subjective Progress Note Date: 01/08/21 Principal diagnosis: left breast mass/ possible sebaceous cyst mass Surveillance fibrocystic breast changes Sarita is a 65 year old white female seen in consultation for DR. Efrem Montana on 04-24-20 regarding a radiographic abnormality in her left breast. She had a bilateral mammogram performed in August 2019. This revealed a 5 mm circumscribed mass in the anterior position of the left breast. Previous mammotome biopsy had been performed in the left breast which was benign. Chronic nodularity was noted in the left breast ultrasound was recommended. Left breast ultrasound was performed on . This revealed a 0.5 x 0.6 cm cystic lesion felt to be benign and follow-up mammogram of both breasts in 5 months was recommended. Patient August 2018 she underwent a left breast ultrasound-guided core biopsy which revealed fat necrosis with inflammation and fibrosis. At this time the patient is not complaining of any lumps masses or nodules in her breast. She is not complaining of any nipple discharge. She is not complaining of any breast pain. She has no history of any recent trauma or infection in the breast. In the remote past she did have some trauma to the left inner aspect of the breast but this was many years ago. Her most recent mammogram was on 09-15-20 and was bilateral benign BIRAD 2. on examination on her appointment of 10-01-20 she was noted to have a palpable mass in the left breast in the inner aspect. As ultrasound was done to evaluate this on 10-05-20 which showed multiple cyst the largest at 1 o clock and a lesion probable lipoma at 9 o clock. The patient states it is not painful now, although it was in the past. Patient has regular colonoscopies, and was told she does not need to go back until 66. The patient has concern regarding the lump in her left breast as it has not gone away. There was some question that it may represent a sebaceous cyst versus a lipoma and secondary to the question of sebaceous cyst FNA was not recommended. The patient also complains of minimal in her left lateral breast/axilla which is irritating to her. CAffiene: tea daily 2 cups Nicotine: Negative Theophylline: rarely Hormones: Negative Family history: Mother: colon cancer, kidney cancer, breast cancer maternal aunts two: Breast and colon cancer in 2 aunts maternal uncle: stomach cancer History: Menarche: 9 09/26 breast fed: yes, age at first : 23 menopasue: BENJI at 49 not for cancer BCP: 1 year hormones: none Surgical history: 1. Total abdominal hysterectomy 2. Right 3. Right knee 4. Hernia repair 5. Tonsillectomy 6. Left breast ultrasound-guided core biopsy Patient recommended to have a groin hernia fixed and parathyroid surgery, she also is considering having bariatic surgery. Medical history: Diabetes High blood pressure High cholesterol Hypothyroid gout anemia heart murmur Social History: smoke: none alcohol: rare drugs: none - Constitutional Constitutional: Denies chills, Denies fever - EENT Eyes: denies blurred vision, denies pain Ears: right: decreased hearing, deny: tinnitus Ears, nose, mouth and throat: Denies headache, Denies sore throat - Breasts Breasts: bilateral: as per HPI - Cardiovascular Cardiovascular: Denies chest pain, Denies shortness of breath - Respiratory Respiratory: Denies cough - Gastrointestinal Gastrointestinal: Denies abdominal pain, Denies diarrhea, Denies nausea, Denies vomiting - Genitourinary (Female) Genitourinary: Reports kidney stones, Denies dysuria, Denies hematuria - Menstruation Menstruation: Reports post hysterectomy - Musculoskeletal Musculoskeletal: Denies myalgias - Integumentary Integumentary: Denies pruritus, Denies rash - Neurological Neurological: Denies numbness, Denies weakness - Psychiatric Psychiatric: Denies anxiety, Denies depression - Endocrine Endocrine: Denies fatigue, Denies weight change - Hematologic/Lymphatic Comment: aspirin - Allergic/Immunologic Allergic/Immunologic: Reports as per HPI Objective - Vital Signs Vital signs: Intake & Output 01/07/21 01/08/21 01/08/21 18:59 06:59 18:59 Weight 137.438 kg - Exam BMI 48.9 - Constitutional General appearance: Present: morbidly obese - EENT Eyes: Present: EOMI ENT: Present: hearing grossly normal - Neck Neck: Present: normal ROM - Respiratory Respiratory: bilateral: CTA - Cardiovascular Rhythm: regular Heart sounds: normal: S1, S2 - Integumentary Integumentary: Present: normal turgor - Psychiatric Psychiatric: Present: A&O x's 3, appropriate affect, intact judgment & insight - Additional findings Additional findings: breast exam: BRA: 48B inspection: bilateral grade 3 ptosis palpation: right breast: Positional exam fibrocystic changes, no dominant masses or nodules of concern Right axilla: No adenopathy of concern Left breast: Multiple positional exam fibrocystic changes, and the approximate 9 o'clock position in the upper inner area there is a approximately 1 cm area of nodularity most likely a sebaceous cyst Right axilla: No adenopathy of concern there is a axillary skin tag which is protuberant Assessment and Plan Assessment: Impression: 1. Protuberant axillary skin tag left 2. Probable sebaceous cyst left breast upper inner area 3. BMI 48.9 4. Hyperparathyroidism as per patient 5. Groin hernia as per patient 6. Diabetes 7. Hypertension 8. Hypothyroid 9. High cholesterol 10. Gout 11. Heart murmur Plan: 1. Removal of sebaceous cyst 2. Removal axillary skin tag Risk and benefits of the procedure was discussed with the patient she understands and wishes to proceed. In the near future she is considering bariatric surgery and she is also considering repair of her groin hernia and parathyroid surgery. Cc: Dr. Yara Gloria
== END ==
LOC: WWCWWP 09:05
PROVIDERS: ATTEND Surgery
DX: L91.8 Other hypertrophic disorders of the skin (principal); E03.9 Hypothyroidism, unspecified; E11.9 Type 2 diabetes mellitus without complications; E21.3 Hyperparathyroidism, unspecified; E78.00 Pure hypercholesterolemia, unspecified; I10 Essential (primary) hypertension; M10.9 Gout, unspecified; Z68.42 Body mass index [BMI] 45.0-49.9, adult; R01.1 Cardiac murmur, unspecified; K40.90 Unilateral inguinal hernia, without obstruction or gangrene, not specified as recurrent; E66.01 Morbid (severe) obesity due to excess calories

== ENCOUNTER 2021-01-19 07:21 | Day surgery (SDC) | payer MEDICARE, OTHER ==
[2021-01-15 09:50] VITALS: BMI 48.4
[~2021-01-19 07:21] MED LIST: DEXAMETHASONE SOD PHOSPHATE 4 MG/ML 1 ML VIAL IV ONE; HEPARIN SODIUM,PORCINE/PF 5,000 UNIT/0.5 ML SYRINGE SQ PRN; HYDROmorphone 0.5 MG/0.5 ML SYRINGE IVP PRN; LACTATED RINGERS 1,000 ML IV SCH; LIDOCAINE 1% (10MG/ML) FOR IV START INTRADERMA PRN; MIDAZOLAM 2 MG/2 ML VIAL IV PRN; ONDANSETRON 4 MG/2 ML VIAL IVP ONE; Pre Op ABX Message 1 EACH MISC MISCELLANE ONE
[2021-01-19 07:58] VITALS: RESP 16
[2021-01-19 08:20] LABS: Glucose,Whole Blood 146 mg/dL (75-99)
[2021-01-19] MEDS ORDERED: SUCCINYLCHOLINE CHLORIDE 100 MG/5 ML SYR IV ONE (08:41)
[2021-01-19] MEDS ORDERED: fentaNYL (PF) 50 MCG/ML 2 ML AMP ONE (08:41)
[2021-01-19] MEDS ORDERED: LIDOCAINE 1% INJ 10MG/ML (20 ML MDV) ONE (08:41)
[2021-01-19] MEDS ORDERED: MIDAZOLAM 2 MG/2 ML VIAL ONE (08:41)
[2021-01-19] MEDS ORDERED: PROPOFOL 10 MG/ML 20 ML VIAL IV ONE (08:41)
[2021-01-19] MEDS ORDERED: LIDOCAINE 1% INJ 10MG/ML (20 ML MDV) SQ ONE ×2 (09:14)
--- NOTE | 2021-01-19 09:46 | P.OP ---
Date of Procedure: 01/19/21 Preoperative Diagnosis: skin tags times three, mass left breast Postoperative Diagnosis: same Procedure(s) Performed: removal of skin tags, and mass left breast Surgeon: Jessica Serrano Estimated Blood Loss (ml): 3 IV fluids (ml): 600 Pathology: other (skin tags and lump left breast) Condition: stable Disposition: same day Indications for Procedure: Mass left breast/suspect may be sebaceous cyst preoperative Operative Findings: Probable lipoma left breast/skin tags Description of Procedure: The patient is a 65-year-old white female. She is noted to have multiple skin tags in the left axillary region as well as a mass in the left inner breast. The mass in the left inner breast a suspicious for sebaceous cyst versus lipoma. Secondary to the possibility of sebaceous cyst of FNA was not recommended. The patient states that had been painful the past and wishes it to be removed. The patient was taken to the operating room and the area of the left axilla and breast were prepped and draped following induction of anesthesia. Following this the area was prepped and draped in a sterile fashion. The area of the axilla was approached. All skin tags were removed using the electrocautery device. 4-0 nylon sutures were placed in each site. Following this the area of the mass and right breast was approached. An incision was made over this. Upon evaluation this was noted to be a lipoma. It was approximately 2-1/2 cm in size. This was widely excised. After assured that hemostasis was attained the deep tissues were closed using 3-0 Vicryl suture. A 4-0 Monocryl was placed. This was followed by a 4-0 nylon skin suture. The patient tolerated procedure in stable condition. All instrument and sponge counts were correct at the end of the case.
--- NOTE | 2021-01-19 09:48 | P.DS ---
Providers Attending physician: Jessica Serrano Primary care physician: Gillian Maloney Plan - Discharge Summary Discharge Rx Participant: No New Discharge Prescriptions: No Action metFORMIN HCL 500 mg PO QAM glipiZIDE [Glucotrol] 5 mg PO QAM Ubidecarenone [Co Q-10] 100 mg PO HS lisinopriL [Zestril] 10 mg PO QAM Levothyroxine Sodium [Synthroid] 75 mcg PO QAM Furosemide [Lasix] 40 mg PO BID Ferrous Sulfate [Iron (65 MG Elemental)] 325 mg PO QAM Atorvastatin [Lipitor] 20 mg PO HS Aspirin 81 mg PO QAM amLODIPine BESYLATE 5 mg PO QAM Pioglitazone HCl 30 mg PO QAM allopurinoL [Zyloprim] 100 mg PO QAM Insulin Glargine [Lantus] 25 unit SQ HS Cinacalcet [Sensipar] 30 mg PO QAM Ergocalciferol [Vitamin D2 (1250 Mcg = 94793 Iu)] 1,250 mcg PO Q7DAYS Discharge Medication List glipiZIDE [Glucotrol] 5 mg PO QAM 01/30/15 [History] metFORMIN HCL 500 mg PO QAM 01/30/15 [History] Aspirin 81 mg PO QAM 07/24/18 [History] Atorvastatin [Lipitor] 20 mg PO HS 07/24/18 [History] Ferrous Sulfate [Iron (65 MG Elemental)] 325 mg PO QAM 07/24/18 [History] Furosemide [Lasix] 40 mg PO BID 07/24/18 [History] Levothyroxine Sodium [Synthroid] 75 mcg PO QAM 07/24/18 [History] Ubidecarenone [Co Q-10] 100 mg PO HS 07/24/18 [History] lisinopriL [Zestril] 10 mg PO QAM 07/24/18 [History] Pioglitazone HCl 30 mg PO QAM 04/24/20 [History] amLODIPine BESYLATE 5 mg PO QAM 04/24/20 [History] allopurinoL [Zyloprim] 100 mg PO QAM 10/01/20 [History] Cinacalcet [Sensipar] 30 mg PO QAM 01/08/21 [History] Insulin Glargine [Lantus] 25 unit SQ HS 01/08/21 [History] Ergocalciferol [Vitamin D2 (1250 Mcg = 61259 Iu)] 1,250 mcg PO Q7DAYS 01/15/21 [History] Follow up Appointment(s)/Referral(s): Jessica Serrano MD [STAFF PHYSICIAN] - 1 Week Activity/Diet/Wound Care/Special Instructions: may shower after [address] for 24 hours after discharge Discharge Disposition: HOME SELF-CARE
[2021-01-19 10:00] VITALS: TEMP 97.1
[2021-01-19 10:41] VITALS: BP 127/84; PULSE 60
== END 2021-01-19 10:58 | disposition home or self-care (01) ==
LOC: OR 07:21
PROVIDERS: ATTEND Surgery
DX: L91.8 Other hypertrophic disorders of the skin (principal); D17.1 Benign lipomatous neoplasm of skin and subcutaneous tissue of trunk; I10 Essential (primary) hypertension; E11.9 Type 2 diabetes mellitus without complications; E78.00 Pure hypercholesterolemia, unspecified; D64.9 Anemia, unspecified; E03.9 Hypothyroidism, unspecified; E21.3 Hyperparathyroidism, unspecified; R01.1 Cardiac murmur, unspecified; E66.01 Morbid (severe) obesity due to excess calories; Z68.42 Body mass index [BMI] 45.0-49.9, adult; Z79.4 Long term (current) use of insulin; Z79.899 Other long term (current) drug therapy; Z79.890 Hormone replacement therapy; Z80.0 Family history of malignant neoplasm of digestive organs; Z80.51 Family history of malignant neoplasm of kidney; Z80.3 Family history of malignant neoplasm of breast; Z88.5 Allergy status to narcotic agent; Z91.040 Latex allergy status
CPT/HCPCS: 11200; 11403; 12031; 88304; J2250; J1100; J2405; J2001; J3010; J0330; J2704; J1644

== ENCOUNTER → 2021-01-25 | Outpatient (CLI) | payer MEDICARE, OTHER ==
[2021-01-25 14:08] VITALS: BP 135/57; PULSE 76; RESP 18; TEMP 98.1; BMI 49.7
--- NOTE | 2021-01-25 14:41 | P.HPBAR ---
Bariatric H&P - History & Physicial H&P Date: 01/25/21 History & Physicial: Visit/CC: initial visit Patient initial contact: Initial weight: 139.706 kg Initial weight in pounds: 308.00 Height: 5 ft 6 in Initial BMI: 49.7 Last weight: Current weight: 139.706 kg Current weight in pounds: 308.00 Current BMI: 49.7 [place] body weight (based on NIH guidelines): 58.967 kg Excess body weight loss: 0.0% The patient is a 65 year-old F who presents for Bariatric Assessment. Patient presents today for sleeve gastrectomy initial consultation. She's had lifetime problems obesity. She has several comorbidities related to morbid obesity. Patient is an excellent understanding of sleeve gastrectomy. Past Medical History Past Medical History: Diabetes Mellitus, Hyperlipidemia, Hypertension, Thyroid Disorder Additional Past Medical History / Comment(s): History of kidney stones. 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 benign ovarian tumor. Heart murmor History of Any Multi-Drug Resistant Organisms: None Reported Past Surgical History: Hernia Repair, Hysterectomy, Orthopedic Surgery, Tonsillectomy Additional Past Surgical History / Comment(s): eye, thyroid biopsy, colonoscopy 1999 and 2017. Past Anesthesia/Blood Transfusion Reactions: No Reported Reaction Past Psychological History: No Psychological Hx Reported Smoking Status: Never smoker Past Alcohol Use History: Rare Past Drug Use History: None Reported - Past Family History Mother Family Medical History: Cancer, CVA/TIA, Diabetes Mellitus, Myocardial Infarction ([place]) Additional Family Medical History / Comment(s): Two maternal aunts had colon cancer and one maternal aunt had breast cancer. Surgical - Exam Vital Signs Temp Pulse Resp BP 98.1 F 76 18 135/57 01/25/21 14:01 01/25/21 14:01 01/25/21 14:01 01/25/21 14:01 - General well developed, well nourished, no distress - Eyes PERRL - ENT normal pinna, normal nares - Neck no masses - Respiratory normal expansion - Cardiovascular Rhythm: regular - Abdomen Abdomen: soft, non tender Bariatric Assessment & Plan Plan: Morbid obesity, BMI 50. Patient will undergo EGD. Bariatric Checklist Checklist: Plan: Checklist: EGD: 1. Hiatal hernia: 2. H. Pylori: HgbA1c: Vitamin D: Smoking: Never smoker Primary care physician referral: Dr. Gillian Maloney Psychiatry clearance: Cardiology clearance: Sleep study: Diet journal: VTE risk score: VTE risk level: Rehab needs at discharge:
[2021-01-25 14:51] LABS: HCT 34.1 % (34.0-46.0); HGB 11.5 gm/dL (11.4-16.0); MCH 25.2 pg (25.0-35.0); MCHC 33.7 g/dL (31.0-37.0); MCV 74.8 fL (80.0-100.0); Mean Platelet Volume 7.5; Microcytosis Slight; Platelet Count 251 k/uL (150-450); RBC 4.56 m/uL (3.80-5.40); WBC 11.5 k/uL (3.8-10.6)
[2021-01-25 21:21] LABS: Hemoglobin A1C 8.8 % (4.0-6.0)
[2021-01-25 21:29] LABS: African American GFR (CKD) 45.6 (60.0-200.0); Albumin 4.3 g/dL (3.80-4.90); Albumin/Globulin Ratio 1.72 (1.60-3.17); Anion Gap 9.1 mmol/L (4.00-12.00); BUN/Creat Ratio 23.57 Ratio (12.00-20.00); Calcium 10.5 mg/dL (8.7-10.3); Carbon Dioxide 25.9 mmol/L (21.6-31.8); Folate, Serum 18.1 ng/mL; Globulin 2.5 g/dL (1.6-3.3); Non-African American GFR(CKD) 39.3 (60.0-200.0); Potassium 4.2 mmol/L (3.5-5.5); Total Bilirubin 0.7 mg/dL (0.3-1.2); Total Protein 6.8 g/dL (6.2-8.2)
== END ==
LOC: BARWHC3 13:47
PROVIDERS: ATTEND Surgery
DX: E66.01 Morbid (severe) obesity due to excess calories (principal); E11.9 Type 2 diabetes mellitus without complications; E78.5 Hyperlipidemia, unspecified; I10 Essential (primary) hypertension; Z68.43 Body mass index [BMI] 50.0-59.9, adult; Z79.4 Long term (current) use of insulin
CPT/HCPCS: 84425; 80053; 82607; 82746; 85027; 82306; 83036; 97803; 36415; G0463; 99211

== ENCOUNTER → 2021-01-28 | Outpatient (CLI) | payer OTHER, MEDICARE ==
[2021-01-28 16:07] VITALS: BP 166/78; PULSE 63; RESP 18; TEMP 97.9
--- NOTE | 2021-01-28 16:31 | P.PN ---
Progress Note - Text Progress Note Date: 01/28/21 Patient states after surgery she had some cramping of her muscles. She took potassium and drink fluids and has has had resolution of this. Otherwise she has no complaints related to the operative sites. Pathology revealed fibrolipoma and benign acrochodron/skin tags Incision clean and dry Plan: 1. follow up in 6 months/breast mammogram an appointment Cc: Dr. Gloria
== END ==
LOC: WWCWWP 15:49
PROVIDERS: ATTEND Surgery
DX: D17.9 Benign lipomatous neoplasm, unspecified (principal)

== ENCOUNTER 2021-04-01 07:28 | Day surgery (SDC) | payer MEDICARE, OTHER ==
[2021-03-30 15:08] VITALS: BMI 50.0
[~2021-04-01 07:28] MED LIST changes: -DEXAMETHASONE SOD PHOSPHATE 4 MG/ML 1 ML VIAL IV ONE; -HEPARIN SODIUM,PORCINE/PF 5,000 UNIT/0.5 ML SYRINGE SQ PRN; -HYDROmorphone 0.5 MG/0.5 ML SYRINGE IVP PRN; -MIDAZOLAM 2 MG/2 ML VIAL IV PRN; -ONDANSETRON 4 MG/2 ML VIAL IVP ONE; -Pre Op ABX Message 1 EACH MISC MISCELLANE ONE
[2021-04-01 08:04] VITALS: RESP 16; TEMP 98.3
[2021-04-01 08:08] LABS: Glucose,Whole Blood 93 mg/dL (75-99)
[2021-04-01] MEDS ORDERED: LIDOCAINE 1% INJ 10MG/ML (20 ML MDV) ONE (08:17)
[2021-04-01] MEDS ORDERED: PROPOFOL 10 MG/ML 20 ML VIAL IV ONE (08:17)
--- NOTE | 2021-04-01 08:20 | P.GSHP ---
History of Present Illness H&P Date: 04/01/21 Chief Complaint: GERD Is a 65-year-old female with issues with GERD. She presents today for EGD. She is undergoing workup for sleeve gastrectomy. She's morbid obesity. Her BMI is 52. Past Medical History Past Medical History: Diabetes Mellitus, Hyperlipidemia, Hypertension, Thyroid Disorder Additional Past Medical History / Comment(s): History of kidney stones. 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 benign ovarian tumor. Heart murmor History of Any Multi-Drug Resistant Organisms: None Reported Past Surgical History: Hernia Repair, Hysterectomy, Orthopedic Surgery, Tonsillectomy Additional Past Surgical History / Comment(s): eye, thyroid biopsy, colonoscopy 1999 and 2016,left breast bx-chip present,cyst removed left breast Past Anesthesia/Blood Transfusion Reactions: No Reported Reaction Additional Past Anesthesia/Blood Transfusion Reaction / Comment(s): "chandni horse through my whole body after breast surgery" Smoking Status: Never smoker - Past Family History Mother Family Medical History: Cancer, CVA/TIA, Diabetes Mellitus, Myocardial Infarction ([place]) Additional Family Medical History / Comment(s): colon,kidney,breast CA.Two maternal aunts had colon cancer and one maternal aunt had breast cancer. Medications and Allergies Home Medications Medication Instructions Recorded Confirmed Type glipiZIDE [Glucotrol] 5 mg PO BID 01/30/15 04/01/21 History Aspirin 81 mg PO QAM 07/24/18 04/01/21 History Atorvastatin [Lipitor] 20 mg PO HS 07/24/18 04/01/21 History Ferrous Sulfate [Iron (65 MG 325 mg PO Q2D 07/24/18 04/01/21 History Elemental)] Furosemide [Lasix] 40 mg PO BID 07/24/18 04/01/21 History Levothyroxine Sodium [Synthroid] 75 mcg PO QAM 07/24/18 04/01/21 History Ubidecarenone [Co Q-10] 100 mg PO DAILY 07/24/18 04/01/21 History lisinopriL [Zestril] 10 mg PO QAM 07/24/18 04/01/21 History Pioglitazone HCl 30 mg PO QAM 04/24/20 04/01/21 History amLODIPine BESYLATE 5 mg PO QAM 04/24/20 04/01/21 History allopurinoL [Zyloprim] 100 mg PO QAM 10/01/20 04/01/21 History Cinacalcet [Sensipar] 30 mg PO MOTUWETHFR 01/08/21 04/01/21 History Insulin Glargine [Lantus] 25 unit SQ HS 01/08/21 04/01/21 History Ergocalciferol [Vitamin D2 (1250 1,250 mcg PO FRANKS 01/15/21 04/01/21 History Mcg = 77877 Iu)] Potassium Chloride 10 meq PO DAILY 03/30/21 04/01/21 History metFORMIN HCL [Glucophage] 500 mg PO QAM 03/30/21 04/01/21 History Allergies Allergy/AdvReac Type Severity Reaction Status Date / Time bee venom protein (honey bee) Allergy Swelling Verified 04/01/21 07:44 codeine Allergy Swelling Verified 04/01/21 07:44 latex Allergy Rash/Hives Verified 04/01/21 07:44 artificial sweetners Allergy Anaphylaxis Uncoded 04/01/21 07:44 (unknown dose) Surgical - Exam Vital Signs Temp Pulse Resp BP Pulse Ox 98.3 F 59 L 16 156/85 95 04/01/21 07:51 04/01/21 07:51 04/01/21 07:51 04/01/21 07:51 04/01/21 07:51 - General well developed, well nourished, no distress - Eyes PERRL - ENT normal pinna - Neck no masses - Respiratory normal expansion - Cardiovascular Rhythm: regular - Abdomen Abdomen: soft, non tender Assessment and Plan Assessment: GERD, morbid obesity. We'll perform EGD.
--- NOTE | 2021-04-01 08:27 | P.OP ---
Date of Procedure: 04/01/21 Preoperative Diagnosis: GERD Morbid obesity Postoperative Diagnosis: Antral gastritis Morbid obesity Procedure(s) Performed: EGD Anesthesia: MAC Surgeon: Alejandro Rebolledo Pathology: other (Antrum) Condition: stable Disposition: PACU Description of Procedure: Patient's placed on the endoscopy table in the lateral position. She received IV sedation. The gastroscope placed oropharynx passed in the esophagus and stomach. Scope was placed the pylorus. First and second portion of the duodenum appeared normal. Scope was then brought back the antrum and this was mildly inflamed. Biopsies performed. Scope was unretroflexed and remainder stomach appeared normal. The GE junction is at40 cm the distal esophagus. Normal proximal esophagus. Normal. Scope was withdrawn for patient.
[2021-04-01 08:46] LABS: Glucose,Whole Blood 95 mg/dL (75-99)
[2021-04-01 09:03] VITALS: BP 129/76; PULSE 64
== END 2021-04-01 09:14 | disposition home or self-care (01) ==
LOC: ORWHC2ENDO 07:28
PROVIDERS: ATTEND Surgery
DX: K29.50 Unspecified chronic gastritis without bleeding (principal); I12.9 Hypertensive chronic kidney disease with stage 1 through stage 4 chronic kidney disease, or unspecified chronic kidney disease; N18.9 Chronic kidney disease, unspecified; E11.9 Type 2 diabetes mellitus without complications; E78.5 Hyperlipidemia, unspecified; E66.01 Morbid (severe) obesity due to excess calories; Z68.43 Body mass index [BMI] 50.0-59.9, adult; Z79.4 Long term (current) use of insulin; Z79.82 Long term (current) use of aspirin; Z80.3 Family history of malignant neoplasm of breast; Z82.49 Family history of ischemic heart disease and other diseases of the circulatory system; Z83.3 Family history of diabetes mellitus; Z91.040 Latex allergy status; Z87.442 Personal history of urinary calculi
CPT/HCPCS: 88305; 43239; J2001; J2704

== ENCOUNTER → 2021-04-12 | Outpatient (CLI) | payer MEDICARE, OTHER ==
[2021-04-12 13:08] VITALS: BMI 53.7
[2021-04-12 13:19] VITALS: BP 137/72; PULSE 72; RESP 16; TEMP 98
--- NOTE | 2021-04-12 14:10 | P.HPBAR ---
Bariatric H&P - History & Physicial H&P Date: 04/12/21 History & Physicial: Visit/CC: pre-surg Patient initial contact: Initial weight: 139.706 kg Initial weight in pounds: 308.00 Height: 5 ft 6 in Initial BMI: 49.7 Last weight: Current weight: 151.137 kg Current weight in pounds: 333.20 Current BMI: 53.7 [place] body weight (based on NIH guidelines): 58.967 kg Excess body weight loss: The patient is a 65 year-old F who presents for Bariatric Assessment. Patient presents today for presurgical consultation. She has finished her psychiatric evaluation. She is requesting a date for surgery. She has an excellent understanding significant history. She is aware the risks of surgery including gastric sleeve leak, bleeding and scarring. Past Medical History Past Medical History: Diabetes Mellitus, Hyperlipidemia, Hypertension, Thyroid Disorder Additional Past Medical History / Comment(s): History of kidney stones. 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 benign ovarian tumor. Heart murmor History of Any Multi-Drug Resistant Organisms: None Reported Past Surgical History: Hernia Repair, Hysterectomy, Orthopedic Surgery, Tonsillectomy Additional Past Surgical History / Comment(s): eye, thyroid biopsy, colonoscopy 1999 and 2016,left breast bx-chip present,cyst removed left breast Past Anesthesia/Blood Transfusion Reactions: No Reported Reaction Additional Past Anesthesia/Blood Transfusion Reaction / Comm: "chandni horse through my whole body after breast surgery" Past Psychological History: No Psychological Hx Reported Smoking Status: Never smoker Past Alcohol Use History: Rare Past Drug Use History: None Reported - Past Family History Mother Family Medical History: Cancer, CVA/TIA, Diabetes Mellitus, Myocardial Infarction ([place]) Additional Family Medical History / Comment(s): colon,kidney,breast CA.Two maternal aunts had colon cancer and one maternal aunt had breast cancer. Surgical - Exam Vital Signs Temp Pulse Resp BP 98 F 72 16 137/72 04/12/21 13:16 04/12/21 13:16 04/12/21 13:16 04/12/21 13:16 - General well developed, well nourished, no distress - Eyes PERRL - ENT normal pinna - Neck no masses - Respiratory normal expansion - Cardiovascular Rhythm: regular - Abdomen Abdomen: soft, non tender Bariatric Assessment & Plan Plan: Morbid obesity, BMI 54. Patient is scheduled for surgery within 4 weeks. Bariatric Checklist Checklist: Plan: Checklist: EGD: 1. Hiatal hernia: 2. H. Pylori: HgbA1c: Vitamin D: Smoking: Never smoker Primary care physician referral: Dr. Gillian Maolney Psychiatry clearance: Cardiology clearance: Sleep study: Diet journal: VTE risk score: VTE risk level: Rehab needs at discharge:
== END | disposition home or self-care (01) ==
LOC: BARWHC3 08:36
PROVIDERS: ATTEND Surgery
DX: E66.01 Morbid (severe) obesity due to excess calories (principal); E11.9 Type 2 diabetes mellitus without complications; E78.5 Hyperlipidemia, unspecified; I10 Essential (primary) hypertension; E07.9 Disorder of thyroid, unspecified; Z68.43 Body mass index [BMI] 50.0-59.9, adult
CPT/HCPCS: 97804; G0463; 99211

== ENCOUNTER → 2021-04-19 | Outpatient (CLI) | payer MEDICARE, OTHER ==
[2021-04-19 15:06] LABS: Appearance,Urine Clear (Clear); Bilirubin,Urine Negative (Negative); Blood,Urine Negative (Negative); Color,Urine Colorless; Glucose,Urine (UA) Negative (Negative); Ketones,Urine Negative (Negative); Leukocyte Esterase,Urine Negative (Negative); Nitrite,Urine Negative (Negative); Protein,Urine Negative (Negative); Specific Gravity,Urine 1.007 (1.001-1.035); Urobilinogen,Urine <2.0 mg/dL (<2.0)
[2021-04-19 15:29] LABS: Creatinine,Urine Random 21.9 mg/dL; Protein/Creatinine Ratio,Urine 0.594
[2021-04-19 19:32] LABS: % Iron Saturation 6.82 (12.00-45.00); Albumin 4.4 g/dL (3.80-4.90); Ferritin 351.7 ng/mL (10.0-291.0); Magnesium 2.1 mg/dL (1.5-2.4); Phosphorus 3.5 mg/dL (2.4-5.1); Uric Acid 6.2 mg/dL (2.9-7.7)
== END | disposition home or self-care (01) ==
LOC: LABWHC1 13:46
PROVIDERS: ATTEND Internal Medicine Nephrology
DX: N18.32 Chronic kidney disease, stage 3b (principal); E55.9 Vitamin D deficiency, unspecified; M10.9 Gout, unspecified; N39.0 Urinary tract infection, site not specified; D64.9 Anemia, unspecified; R80.9 Proteinuria, unspecified
CPT/HCPCS: 36415; 81003; 82040; 82306; 82570; 82728; 83540; 83550; 83735; 83970; 84100; 84156; 84550

== ENCOUNTER → 2021-04-19 | Outpatient (CLI) | payer MEDICARE, OTHER ==
[2021-04-19 15:03] LABS: Albumin 4.2 g/dL (3.5-5.0); Calcium 10.6 mg/dL (8.4-10.2); Potassium 4.6 mmol/L (3.5-5.1); Total Bilirubin 0.6 mg/dL (0.2-1.3); Total Protein 6.8 g/dL (6.3-8.2)
[2021-04-19 15:33] LABS: HCT 36.2 % (34.0-46.0); HGB 11.4 gm/dL (11.4-16.0); MCH 24.8 pg (25.0-35.0); MCV 78.9 fL (80.0-100.0); RBC 4.59 m/uL (3.80-5.40); WBC 13.2 k/uL (3.8-10.6)
[2021-04-19 15:34] LABS: Basophils % (A) 0 %; Eosinophils # (A) 0.3 k/uL (0-0.7); Eosinophils % (A) 2 %; Lymphocytes # (A) 1.5 k/uL (1.0-4.8); Lymphocytes % (A) 11 %; MCHC 31.5 g/dL (31.0-37.0); Mean Platelet Volume 9.4; Monocytes # (A) 0.7 k/uL (0-1.0); Monocytes % (A) 6 %; Neutrophils # (A) 10.5 k/uL (1.3-7.7); Neutrophils % (A) 79 %; Platelet Count 240 k/uL (150-450); RDW 14.7 % (11.5-15.5)
== END | disposition home or self-care (01) ==
LOC: LABPAT 13:49
PROVIDERS: ATTEND Surgery
DX: Z01.812 Encounter for preprocedural laboratory examination (principal)
CPT/HCPCS: 80053; 85025

== ENCOUNTER 2021-05-10 07:40 | Inpatient (IN) | payer MEDICARE, OTHER ==
[~2021-05-10 07:40] MED LIST changes: +DEXAMETHASONE SOD PHOSPHATE 4 MG/ML 1 ML VIAL IV ONE; +ENOXAPARIN 40 MG/0.4 ML SYRINGE SQ PRN; -LACTATED RINGERS 1,000 ML IV SCH; +ONDANSETRON 4 MG/2 ML VIAL IVP ONE; +ceFAZolin 3 GM in SODIUM CHLORIDE 0.9% 100 ML IVPB PRN
[2021-05-10 08:57] LABS: Glucose,Whole Blood 107 mg/dL (75-99)
[2021-05-10] MEDS ORDERED: LACTATED RINGERS 1,000 ML IV ONE ×2 (09:08→11:17)
--- NOTE | 2021-05-10 09:53 | P.GSHP ---
History of Present Illness H&P Date: 05/10/21 Chief Complaint: Morbid obesity, BMI 49 This is a 65-year-old female who presents today for laparoscopic sleeve gastrectomy. Patient is mildly obese. Her BMI is 49. Patient is aware the risks surgery including conversion to the open procedure injury of the stomach. Past Medical History Past Medical History: Diabetes Mellitus, Hyperlipidemia, Hypertension, Renal Disease, Thyroid Disorder Additional Past Medical History / Comment(s): History of kidney stones. 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 benign ovarian tumor. Heart murmur, iron deficient anemia-last iron infusion 04-26-21, hx. of elevated clacium History of Any Multi-Drug Resistant Organisms: None Reported Past Surgical History: Hernia Repair, Hysterectomy, Orthopedic Surgery, Tonsil lectomy Additional Past Surgical History / Comment(s): eye, thyroid biopsy, colonoscopy 1999 and 2016,left breast bx-chip present,cyst removed left breast, recent EGD Past Anesthesia/Blood Transfusion Reactions: No Reported Reaction Additional Past Anesthesia/Blood Transfusion Reaction / Comment(s): "chandni horse through my whole body after breast surgery"-doesn't think is related to anesthesia Smoking Status: Never smoker - Past Family History Mother Family Medical History: Cancer, CVA/TIA, Diabetes Mellitus, Myocardial Infarction ([place]) Additional Family Medical History / Comment(s): colon,kidney,breast CA.Two maternal aunts had colon cancer and one maternal aunt had breast cancer. Medications and Allergies Home Medications Medication Instructions Recorded Confirmed Type glipiZIDE [Glucotrol] 5 mg PO DAILY 01/30/15 05/04/21 History Aspirin 81 mg PO QAM 07/24/18 05/04/21 History Atorvastatin [Lipitor] 20 mg PO HS 07/24/18 05/04/21 History Ferrous Sulfate [Iron (65 MG 325 mg PO Q2D 07/24/18 05/04/21 History Elemental)] Furosemide [Lasix] 40 mg PO BID 07/24/18 05/04/21 History Levothyroxine Sodium [Synthroid] 75 mcg PO QAM 07/24/18 05/04/21 History Ubidecarenone [Co Q-10] 100 mg PO DAILY 07/24/18 05/04/21 History lisinopriL [Zestril] 5 mg PO QAM 07/24/18 05/04/21 History Pioglitazone HCl 30 mg PO QAM 04/24/20 05/04/21 History amLODIPine BESYLATE 5 mg PO QAM 04/24/20 05/04/21 History allopurinoL [Zyloprim] 100 mg PO QAM 10/01/20 05/04/21 History Cinacalcet [Sensipar] 30 mg PO MOTUWETHFR 01/08/21 05/04/21 History Insulin Glargine [Lantus] 15 - 20 unit SQ HS 01/08/21 05/04/21 History Ergocalciferol [Vitamin D2 (1250 1,250 mcg PO FRANKS 01/15/21 05/04/21 History Mcg = 12895 Iu)] Potassium Chloride 10 meq PO DAILY 03/30/21 05/04/21 History metFORMIN HCL [Glucophage] 500 mg PO QAM 03/30/21 05/04/21 History Allergies Allergy/AdvReac Type Severity Reaction Status Date / Time bee venom protein (honey bee) Allergy Swelling Verified 05/04/21 14:24 codeine Allergy Swelling Verified 05/04/21 14:24 latex Allergy Rash/Hives Verified 05/04/21 14:24 artificial sweetners Allergy Anaphylaxis Uncoded 05/04/21 14:24 (unknown dose) Surgical - Exam Vital Signs Temp Pulse Resp BP Pulse Ox 97.7 F 61 18 121/70 98 05/10/21 08:43 05/10/21 08:43 05/10/21 08:43 05/10/21 08:43 05/10/21 08:43 - General well developed, well nourished, no distress - Eyes PERRL - ENT normal pinna - Neck no masses - Respiratory normal expansion - Cardiovascular Rhythm: regular - Abdomen Abdomen: soft, non tender Results - Labs Abnormal Lab Results - Last 24 Hours (Table) 05/10/21 Range/Units 08:55 POC Glucose (mg/dL) 107 H (75-99) mg/dL Assessment and Plan Assessment: Morbid obesity, BMI 49. Patient will undergo laparoscopic sleeve gastrectomy today.
[2021-05-10] MEDS ORDERED: HYDROmorphone (PF) 1 MG/ML ONE (10:20)
[2021-05-10] MEDS ORDERED: MIDAZOLAM 2 MG/2 ML VIAL ONE (10:20)
[2021-05-10] MEDS ORDERED: KETAMINE 10 MG/ML 20 ML VIAL ONE (10:20)
[2021-05-10] MEDS ORDERED: ROCURONIUM 10 MG/ML (5 ML VIAL) IV ONE (10:20)
[2021-05-10] MEDS ORDERED: PROPOFOL 10 MG/ML 20 ML VIAL IV ONE (10:20)
[2021-05-10] MEDS ORDERED: fentaNYL (PF) 50 MCG/ML 2 ML AMP ONE (10:20)
[2021-05-10] MEDS ORDERED: NEOSTIGMINE 1 MG/ML 10 ML VIAL ONE (10:20)
[2021-05-10] MEDS ORDERED: SUCCINYLCHOLINE CHLORIDE 100 MG/5 ML SYR IV ONE (10:20)
[2021-05-10] MEDS ORDERED: GLYCOPYRROLATE 0.2 MG/ML 2 ML VIAL ONE (10:20)
[2021-05-10] MEDS ORDERED: LIDOCAINE 1% INJ 10MG/ML (20 ML MDV) ONE (10:20)
[2021-05-10] MEDS ORDERED: BUPIVACAINE (PF) 0.5% 30 ML VIAL SQ ONE (10:52)
[2021-05-10] MEDS ORDERED: METHYLENE BLUE 3 MG in DEXTROSE 5% IN WATER 500 ML IRRIGATION ONE ×2 (10:52)
[2021-05-10] MEDS ORDERED: NALOXONE 0.4 MG/ML 1 ML VIAL IV PRN (11:33)
[2021-05-10] MEDS ORDERED: diphenhydrAMINE 50 MG/ML 1 ML VIAL IVP PRN (11:33)
[2021-05-10] MEDS ORDERED: SIMETHICONE 40 MG/0.6 ML DROPS 2,000 MG/30 ML BOTTLE PO PRN (11:33)
[2021-05-10] MEDS ORDERED: HYOSCYAMINE ORAL DROPS 1.875 MG/15 ML BOTTLE PO PRN (11:33)
[2021-05-10] MEDS ORDERED: HYDROmorphone 1 MG/ML 1 ML SYRINGE IVP PRN (11:33)
[2021-05-10] MEDS ORDERED: ONDANSETRON 4 MG/2 ML VIAL IVP PRN (11:33)
--- NOTE | 2021-05-10 11:33 | P.OP ---
Date of Procedure: 05/10/21 Preoperative Diagnosis: Morbid obesity, BMI 49 Postoperative Diagnosis: Morbid obesity, BMI 49 Procedure(s) Performed: Laparoscopic sleeve gastrectomy Anesthesia: TL Surgeon: Alejandro Rebolledo Estimated Blood Loss (ml): 5 Pathology: other (Stomach) Condition: stable Disposition: PACU Description of Procedure: The patient was placed on the operating room table in the supine position. She received general anesthesia and then was placed in dorsal lithotomy position. Her abdomen was prepped and draped in sterile fashion. The skin incision sites were anesthetized 1% local Xylocaine. And then the skin was incised with an 11 blade in the left lateral position. Using a blade less trocar under direct visualization the peritoneal cavity was entered. The abdomen was insufflated and then a 5 mm laparoscope was placed into the peritoneal cavity. A 5 mm trocar was placed in the right epigastric, and right lateral position. A 15 mm trocar was placed in the supra-umbilical position and another 5 mm trocar was placed in the left lateral position. The left lateral lobe of the liver was retracted. The stomach was visualized. The greater curvature of the stomach was then dissected using the Harmonic scissors. The dissection occurred approximately 5 cm from the pylorus to the level of the left yong. There was no hiatal hernia seen. At this point a 40-[place] Arabian bougie dilator was placed the oropharynx and passed into the esophagus and into the stomach by the WAX PATTERN REPAIRER. The sleeve gastrectomy was performed by using the powered echelon stapler with a seam guard buttress material. Sequential firings of the stapler were performed. The gastric remnant was then brought out through the 15 mm trocar site. The dilator was withdrawn. And a orogastric tube was replaced into the stomach. The stomach was insufflated with 200 mL of methylene blue normal saline. There was no evidence of extravasation. The abdomen was irrigated there is no bleeding seen. The Abdirizak-Huber device was used to close the 15 mm trocar with 0 Vicryl. Skin was closed with interrupted 3-0 Monocryl sutures once the trochars withdrawn. Dermabond dressing was applied. Patient was sent to recovery in stable condition.
[2021-05-10] MEDS: HYDROmorphone 0.5 MG/0.5 ML SYRINGE IVP ONE ×3 (11:56→12:16)
[2021-05-10] MEDS: MEPERIDINE 50 MG/ML SYRINGE IVP ONE ×2 (12:26→13:09)
[2021-05-10] MEDS ORDERED: hydrALAZINE HCL 20 MG/ML 1 ML VIAL ONE (12:59)
[2021-05-10] MEDS ORDERED: hydrALAZINE HCL 20 MG/ML 1 ML VIAL IV ONE (13:02)
[2021-05-10] MEDS: ALBUTEROL NEBULIZED 2.5 MG/3 ML INHALATION SCH ×3 (16:06→19:59)
[2021-05-10 16:23] LABS: Glucose,Whole Blood 193 mg/dL (75-99)
[2021-05-10] MEDS: LACTATED RINGERS 1,000 ML IV SCH ×2 (16:27→16:29)
[2021-05-10] MEDS: KETOROLAC 15 MG/ML 1 ML VIAL IVP SCH ×3 (16:28→23:56)
[2021-05-10] MEDS: INSULIN ASPART (NovoLOG) 100 UNIT/ML VIAL SQ SCH ×3 (17:28→21:32)
[2021-05-10] MEDS: 0.9% NACL WITH KCL 20 MEQ/L 1,000 ML IV SCH ×2 (17:28→23:22)
[2021-05-10 21:19] LABS: Glucose,Whole Blood 226 mg/dL (75-99)
[2021-05-10] MEDS: ENOXAPARIN 40 MG/0.4 ML SYRINGE SQ SCH (21:25)
[2021-05-10] MEDS: INSULIN DETEMIR (LEVEMIR) 100 UNIT/ML SYR SQ SCH (21:25)
--- NOTE | 2021-05-10 21:39 | CONS ---
CONSULTATION REASON FOR CONSULTATION: Advice regarding diabetes mellitus and other medical issues, requested by Dr. Rebolledo. HISTORY OF PRESENT ILLNESS: This 65-year-old woman with a past medical history of diabetes, hypertension, hyperlipidemia, history of renal disease, hypothyroidism, kidney stones, being followed by Dr. Gillian Maloney in the outpatient setting, underwent a laparoscopic sleeve gastrectomy by Dr. Rebolledo. The patient being closely monitored. The patient blood sugars random blood sugar has been 107. The patient's sugars have been ranging less than 200 at home and the patient takes p.r.n. Lantus 15 to 20 units. There is no history of fever, rigors. No history of headache, loss of consciousness or seizures. The patient is n.p.o. currently awaiting barium swallow tomorrow. The patient is able to ambulate. PAST MEDICAL HISTORY: History of diabetes, hypertension, hyperlipidemia, hypothyroidism. MEDICATIONS ARE: Zestril, amlodipine, coenzyme Q, KCl, Glucophage, Synthroid, Lantus, Glucotrol. Lasix, iron, vitamin D2, Sensipar, Lipitor, Zyloprim, aspirin. Doses are noted. ALLERGIES: BEE VENOM, CODEINE, LATEX, AND ARTIFICIAL SWEETENERS. SOCIAL HISTORY: No history of smoking. No history of alcohol intake. FAMILY HISTORY: Family history of CVA, TIA, diabetes, myocardial infarction. REVIEW OF SYSTEMS: ENT: No diminished vision. No diminished hearing. CARDIOVASCULAR: No angina or palpitations. RESPIRATION: No cough. No hemoptysis. GI: As mentioned earlier. no dysuria. NERVOUS SYSTEM: No numbness, weakness. ALLERGY/IMMUNOLOGY: No asthma or hayfever. MUSCULOSKELETAL as mentioned earlier. HEMATOLOGY/ONCOLOGY: No history of anemia. ENDOCRINE: As mentioned earlier. CONSTITUTIONAL: As mentioned earlier. DERMATOLOGY: Negative. RHEUMATOLOGY: Negative. PSYCHIATRY as mentioned earlier. PHYSICAL EXAMINATION: The patient is alert, oriented times three. Pulse 85. Blood pressure 153/60, respirations 16, temperature normal, pulse ox 94% on 2 L. HEENT: Conjunctivae normal. NECK: No jugular venous distention. CARDIOVASCULAR: S1, S2 muffled. RESPIRATORY: Breath sounds diminished at the bases. No rhonchi. No crackles. ABDOMEN: Soft, obese, nontender. No mass palpable. Status post surgery. LEGS: No edema. No swelling. NERVOUS SYSTEM: Higher functions as mentioned earlier. Moves all four limbs. No focal deficits. LYMPHATICS: No lymph nodes palpable in the neck, axillae or groin. SKIN: No ulcer, no rash and no bleeding. JOINTS: No active deforming arthropathy. LABS: Accu-Cheks 107, 193. ASSESSMENT: 1. Status post laparoscopic sleeve gastrectomy for severe morbid obesity. 2. Diabetes type 2. 3. Hypertension. 4. Hyperlipidemia. 5. History of chronic renal disease. 6. History of hypothyroidism. 7. History of nephrolithiasis. 8. History of iron deficiency anemia, status post iron transfusion. 9. History of hernia repair. 10.History of hysterectomy. 11.Obesity with body mass index of 48.5. 12.FULL CODE. RECOMMENDATIONS AND DISCUSSION: In this 65-year-old woman who presented with multiple medical issues, we will monitor the patient closely, continue the current medications, symptomatic treatment. Recommend at this time a small dose of Lantus insulin and as well as Accu-Cheks before meals and at bedtime which could be adjusted once the patient is on p.o. food. Otherwise, resume the home medications will be reconciled. DVT prophylaxis. Proton pump inhibitors. We will follow the patient closely with you. Thank you Dr. Rebolledo for letting us participate in the care of this patient. A copy of dictation being forwarded to Dr. Gillian Maloney who is the primary physician. HOMER / EIPFANIO: [id number] / MTDD
[2021-05-11] MEDS: 0.9% NACL WITH KCL 20 MEQ/L 1,000 ML IV SCH (03:20)
[2021-05-11] MEDS: LEVOTHYROXINE 75 MCG TAB PO SCH (04:33)
[2021-05-11] MEDS: KETOROLAC 15 MG/ML 1 ML VIAL IVP SCH ×4 (05:37→23:53)
[2021-05-11 07:07] LABS: Glucose,Whole Blood 137 mg/dL (75-99)
[2021-05-11] MEDS: ALBUTEROL NEBULIZED 2.5 MG/3 ML INHALATION SCH ×4 (07:56→20:15)
[2021-05-11] MEDS: INSULIN ASPART (NovoLOG) 100 UNIT/ML VIAL SQ SCH ×4 (09:19→22:09)
--- NOTE | 2021-05-11 10:05 | FL ---
EXAMINATION TYPE: FL UGI DATE OF EXAM: 05/11/2021 LIMITED UGI: CLINICAL HISTORY: Morbid Obesity, gastric sleeve surgery yesterday. TECHNIQUE: Limited esophagram is performed utilizing 50 cc of Isovue-370. A total of 2.07 minutes of fluoroscopic time was utilized during procedure and 139 images obtained. COMPARISON: CT abdomen October 23, 2019. FINDINGS: The patient swallowed contrast without difficulty or delay. Esophageal peristalsis and mo tility are satisfactory. There is moderate delay in flow of contrast at level of proximal anastomosi s into the gastric sleeve. There is pooling of contrast in the esophagus with reflux up to upper thor acic level. There is severe delay in flow through distal anastomosis. After approximately 45 minutes one image documented some flow through the distal anastomosis but this eventually refluxed. Patient r emained asymptomatic. Pooled contrast in distal three quarters of esophagus noted. IMPRESSION: Suboptimal study. Severe delay in flow made evaluation nondiagnostic. Patient noted to re main asymptomatic. Consider repeat evaluation in 1 to 2 days.
[2021-05-11] MEDS: ENOXAPARIN 40 MG/0.4 ML SYRINGE SQ SCH ×2 (10:06→22:08)
[2021-05-11] MEDS: PANTOPRAZOLE 40 MG/10 ML VIAL IV SCH (10:06)
[2021-05-11 11:04] LABS: Basophils # (A) 0.03 X 10*3/uL (0.00-0.10); Basophils % (A) 0.2 %; Eosinophils # (A) 0 X 10*3/uL (0.04-0.35); Eosinophils % (A) 0 %; HCT 39.4 % (37.2-46.3); HGB 11.8 g/dL (12.0-15.0); Lymphocytes # (A) 1.03 X 10*3/uL (0.90-5.00); Lymphocytes % (A) 7.9 %; MCH 24.5 pg (27.0-32.0); MCHC 29.9 g/dL (32.0-37.0); MCV 81.7 fL (80.0-97.0); Mean Platelet Volume 11.7 fL (9.5-12.2); Monocytes # (A) 1.15 X 10*3/uL (0.20-1.00); Monocytes % (A) 8.8 %; Neutrophils # (A) 10.83 X 10*3/uL (1.80-7.70); Neutrophils % (A) 82.6 %; Platelet Count 207 X 10*3/uL (140-440); RBC 4.82 X 10*6/uL (4.10-5.20); RDW 16.2 % (11.5-14.5)
[2021-05-11 11:38] LABS: Glucose,Whole Blood 148 mg/dL (75-99)
[2021-05-11 11:46] LABS: African American GFR (CKD) 54.9 (60.0-200.0); Anion Gap 7.6 mmol/L (4.00-12.00); Calcium 10.4 mg/dL (8.7-10.3); Carbon Dioxide 21.4 mmol/L (21.6-31.8); Magnesium 2.1 mg/dL (1.5-2.4); Non-African American GFR(CKD) 47.4 (60.0-200.0); Phosphorus 2.6 mg/dL (2.4-5.1); Potassium 4.8 mmol/L (3.5-5.5)
--- NOTE | 2021-05-11 11:58 | P.PN ---
Progress Note - Text Progress Note Date: 05/11/21 Patient feels well. She had her esophagram performed today. There is no evidence of any leak or obstruction. On exam vital signs are stable. Abdomen soft. Her patient will start on clear liquid diet.
--- NOTE | 2021-05-11 12:03 | P.DS ---
Providers Date of admission: 05/10/21 08:15 Expected date of discharge: 05/11/21 Attending physician: Alejandro Rebolledo Consults: 05/10/21 11:33 Consult Physician Routine Consulting Provider: Gomez Orozco Consult Reason/Comments: Medical management Do you want consulting provider notified?: Yes Primary care physician: [facility] Hospital Course: This a 65-year-old female who underwent laparoscopic sleeve gastrectomy yesterday. Patient did well postoperatively. Please see hospital chart for details. Procedures: Laparoscopic sleeve gastrectomy Patient Condition at Discharge: Good Plan - Discharge Summary Discharge Rx Participant: Yes New Discharge Prescriptions: New Simethicone 40 mg/0.6 ml Drops [Mylicon Drops] 40 mg PO PCHS PRN #30 ml PRN Reason: Gas Omeprazole [PriLOSEC] 40 mg PO DAILY #30 capsule. Ondansetron Odt [Zofran Odt] 4 mg PO Q8HR PRN #9 tab PRN Reason: Nausea oxyCODONE HCL [OxyIR] 5 mg PO Q6H PRN 3 Days #10 tab PRN Reason: Pain bisacodyL [Dulcolax] 5 mg PO DAILY PRN #10 tablet. PRN Reason: Constipation No Action glipiZIDE [Glucotrol] 5 mg PO DAILY Ubidecarenone [Co Q-10] 100 mg PO DAILY lisinopriL [Zestril] 5 mg PO QAM Levothyroxine Sodium [Synthroid] 75 mcg PO QAM Furosemide [Lasix] 40 mg PO BID Ferrous Sulfate [Iron (65 MG Elemental)] 325 mg PO Q2D Atorvastatin [Lipitor] 20 mg PO HS Aspirin 81 mg PO QAM amLODIPine BESYLATE 5 mg PO QAM Pioglitazone HCl 30 mg PO QAM allopurinoL [Zyloprim] 100 mg PO QAM Insulin Glargine [Lantus] 15 - 20 unit SQ HS Cinacalcet [Sensipar] 30 mg PO MOTUWETHFR metFORMIN HCL [Glucophage] 500 mg PO QAM Potassium Chloride 10 meq PO DAILY Ergocalciferol [Vitamin D2 (1250 Mcg = 44149 Iu)] 1,250 mcg PO FRANKS Discharge Medication List glipiZIDE [Glucotrol] 5 mg PO DAILY 01/30/15 [History] Aspirin 81 mg PO QAM 07/24/18 [History] Atorvastatin [Lipitor] 20 mg PO HS 07/24/18 [History] Ferrous Sulfate [Iron (65 MG Elemental)] 325 mg PO Q2D 07/24/18 [History] Furosemide [Lasix] 40 mg PO BID 07/24/18 [History] Levothyroxine Sodium [Synthroid] 75 mcg PO QAM 07/24/18 [History] Ubidecarenone [Co Q-10] 100 mg PO DAILY 07/24/18 [History] lisinopriL [Zestril] 5 mg PO QAM 07/24/18 [History] Pioglitazone HCl 30 mg PO QAM 04/24/20 [History] amLODIPine BESYLATE 5 mg PO QAM 04/24/20 [History] allopurinoL [Zyloprim] 100 mg PO QAM 10/01/20 [History] Cinacalcet [Sensipar] 30 mg PO MOTUWETHFR 01/08/21 [History] Insulin Glargine [Lantus] 15 - 20 unit SQ HS 01/08/21 [History] Ergocalciferol [Vitamin D2 (1250 Mcg = 51622 Iu)] 1,250 mcg PO FRANKS 01/15/21 [History] Potassium Chloride 10 meq PO DAILY 03/30/21 [History] metFORMIN HCL [Glucophage] 500 mg PO QAM 03/30/21 [History] Omeprazole [PriLOSEC] 40 mg PO DAILY #30 capsule. 05/11/21 [Rx] Ondansetron Odt [Zofran Odt] 4 mg PO Q8HR PRN #9 tab 05/11/21 [Rx] Simethicone 40 mg/0.6 ml Drops [Mylicon Drops] 40 mg PO PCHS PRN #30 ml 05/11/21 [Rx] bisacodyL [Dulcolax] 5 mg PO DAILY PRN #10 tablet. 05/11/21 [Rx] oxyCODONE HCL [OxyIR] 5 mg PO Q6H PRN 3 Days #10 tab 05/11/21 [Rx] [facility] [place] [facility] Discharge Disposition: HOME SELF-CARE
[2021-05-11 12:17] VITALS: BMI 48.4
[2021-05-11] MEDS: allopurinoL 100 MG TAB PO SCH (15:52)
[2021-05-11] MEDS: amLODIPine 5 MG TAB PO SCH (15:53)
[2021-05-11] MEDS: FUROSEMIDE 40 MG TAB PO SCH ×2 (15:53→22:09)
[2021-05-11] MEDS: lisinopriL 5 MG TAB PO SCH (15:53)
[2021-05-11 16:44] LABS: Glucose,Whole Blood 137 mg/dL (75-99)
--- NOTE | 2021-05-11 17:13 | PN ---
PROGRESS NOTE DATE OF SERVICE: 05/11/2021 This 65-year-old woman who was admitted after laparoscopic sleeve gastrectomy for severe morbid obesity is improving significantly. No chest pain. No palpitations. No fever. PHYSICAL EXAMINATION: Alert and oriented x3. Blood pressure 143/52, respiration 18, temperature 98.4, pulse ox 98% on room air. HEENT: Conjunctivae normal. Neck: No JVD. Cardiovascular: S1, S2 muffled. Respiratory system: Breath sounds diminished at the bases. A few scattered rhonchi. Abdomen: Soft. Nervous System: No focal deficits. LABS: WBC 13.1, otherwise glucose 137, calcium is 10.4. ASSESSMENT: 1. Status post laparoscopic sleeve gastrectomy for severe morbid obesity. 2. Diabetes type 2. 3. Hypertension. 4. Hyperlipidemia. 5. History of chronic renal disease. 6. History of hypothyroidism. 7. History of nephrolithiasis. 8. History of iron deficiency anemia, status post transfusion. 9. History of hernia repair. 10.History of hysterectomy. 11.Obesity with body mass index of 48.5. 12.FULL CODE. RECOMMENDATIONS AND DISCUSSION: I recommend to continue current medications, symptomatic treatment. Otherwise at this time, I recommend resume the home medication. Monitor closely and further recommendations to follow. MMODL / IJN: [id number] /
[2021-05-11] MEDS: LACTATED RINGERS 1,000 ML IV SCH (18:49)
[2021-05-11 20:57] LABS: Glucose,Whole Blood 171 mg/dL (75-99)
[2021-05-11] MEDS ORDERED: ATORVASTATIN 20 MG TAB PO SCH (21:00)
[2021-05-11] MEDS: INSULIN DETEMIR (LEVEMIR) 100 UNIT/ML SYR SQ SCH (22:09)
[2021-05-12] MEDS: LEVOTHYROXINE 75 MCG TAB PO SCH (05:32)
[2021-05-12] MEDS: KETOROLAC 15 MG/ML 1 ML VIAL IVP SCH (05:32)
[2021-05-12 07:05] LABS: Glucose,Whole Blood 155 mg/dL (75-99)
[2021-05-12] MEDS: INSULIN ASPART (NovoLOG) 100 UNIT/ML VIAL SQ SCH ×2 (07:29→12:23)
[2021-05-12] MEDS: FUROSEMIDE 40 MG TAB PO SCH (07:30)
[2021-05-12] MEDS: lisinopriL 5 MG TAB PO SCH (07:30)
[2021-05-12] MEDS: ENOXAPARIN 40 MG/0.4 ML SYRINGE SQ SCH (07:30)
[2021-05-12] MEDS: HYDROcodone/APAP 15 ML SOLUTION PO PRN ×2 (07:30→13:41)
[2021-05-12] MEDS: allopurinoL 100 MG TAB PO SCH (07:30)
[2021-05-12] MEDS: amLODIPine 5 MG TAB PO SCH (07:30)
[2021-05-12] MEDS: PANTOPRAZOLE 40 MG/10 ML VIAL IV SCH (07:30)
[2021-05-12] MEDS: ALBUTEROL NEBULIZED 2.5 MG/3 ML INHALATION SCH ×2 (08:09→11:19)
[2021-05-12 11:31] LABS: Glucose,Whole Blood 106 mg/dL (75-99)
[2021-05-12 13:52] VITALS: BP 131/66; PULSE 67; RESP 16; TEMP 98.2
--- NOTE | 2021-05-12 19:15 | PN ---
PROGRESS NOTE DATE OF SERVICE: 05/12/2021 This 65-year-old woman who was admitted after laparoscopic sleeve gastrectomy is improving significantly. No chest pain. No palpitations. No fever. EXAM: Alert and oriented times three. Pulse 67, blood pressure 131/66, respirations 16, temperature 98.2, pulse ox 98% on room air. HEENT: Conjunctivae normal. Neck: No JVD. Cardiovascular: S1, S2 muffled. Respiratory system: Breath sounds diminished at the bases. A few rhonchi. No crackles. Abdomen soft, status post surgery. Nervous system: No focal deficits. LABS: Accu-Cheks noted. Otherwise WBC is 13 yesterday. ASSESSMENT: 1. Status post laparoscopic sleeve gastrectomy for severe morbid obesity. 2. Diabetes type 2. 3. Hypertension. 4. Hyperlipidemia. 5. History of chronic renal disease. 6. History of hypothyroidism. 7. History of nephrolithiasis. 8. History of iron deficiency anemia status post transfusion. 9. History of hernia repair. 10.History of hysterectomy. 11.Obesity, body mass index of 48.5. 12.FULL CODE. RECOMMENDATIONS AND DISCUSSION: Continue current medications, management and symptomatic treatment. Resume the home medications. Monitor Accu-Cheks closely. Incentive spirometry. DVT prophylaxis. The rest of recommendations per surgery. Further recommendations to follow. MMODL / IJN: [id number] /
== END 2021-05-12 14:07 | disposition home or self-care (01) | DRG 621 ==
LOC: 2ORMAIN 08:15 → 4SSUR 13:07
PROVIDERS: ADMIT Surgery; ATTEND Surgery
PROC: 0DB64Z3 Excision of Stomach, Percutaneous Endoscopic Approach, Vertical (ICD-10-PCS; principal; 2021-05-10 09:30)
DX: E66.01 Morbid (severe) obesity due to excess calories (principal); E03.9 Hypothyroidism, unspecified; E11.22 Type 2 diabetes mellitus with diabetic chronic kidney disease; E78.5 Hyperlipidemia, unspecified; I12.9 Hypertensive chronic kidney disease with stage 1 through stage 4 chronic kidney disease, or unspecified chronic kidney disease; N18.9 Chronic kidney disease, unspecified; Z68.42 Body mass index [BMI] 45.0-49.9, adult; Z79.4 Long term (current) use of insulin; Z79.82 Long term (current) use of aspirin; Z79.890 Hormone replacement therapy; Z79.899 Other long term (current) drug therapy; Z80.0 Family history of malignant neoplasm of digestive organs; Z80.3 Family history of malignant neoplasm of breast; Z82.3 Family history of stroke; Z82.49 Family history of ischemic heart disease and other diseases of the circulatory system; Z83.3 Family history of diabetes mellitus; Z87.442 Personal history of urinary calculi; Z90.710 Acquired absence of both cervix and uterus; Z98.890 Other specified postprocedural states; Z90.89 Acquired absence of other organs; Z88.5 Allergy status to narcotic agent; Z91.030 Bee allergy status; Z91.040 Latex allergy status
CPT/HCPCS: 74240; 80048; 83735; 84100; 85025; 88307; 94640; 94760; 94762

== ENCOUNTER → 2021-05-14 | Outpatient (CLI) | payer MEDICARE, OTHER ==
[2021-05-14 10:25] VITALS: BP 120/82; PULSE 76; TEMP 98.2; BMI 48.6
== END | disposition home or self-care (01) ==
LOC: BARWHC3 09:46
PROVIDERS: ATTEND Surgery
DX: E66.01 Morbid (severe) obesity due to excess calories (principal); Z68.42 Body mass index [BMI] 45.0-49.9, adult; Z98.84 Bariatric surgery status
CPT/HCPCS: 99211

== ENCOUNTER → 2021-05-17 | Outpatient (CLI) | payer MEDICARE, OTHER ==
[2021-05-17 14:17] VITALS: BP 158/76; PULSE 71; RESP 18; TEMP 98.3; BMI 48.1
--- NOTE | 2021-05-17 14:27 | P.HPBAR ---
Bariatric H&P - History & Physicial H&P Date: 05/17/21 History & Physicial: Visit/CC: follow up / 1 week out Patient initial contact: Initial weight: 139.706 kg Initial weight in pounds: 308.00 Height: 5 ft 6 in Initial BMI: 49.7 Last weight: Current weight: 135.307 kg Current weight in pounds: 298.30 Current BMI: 48.1 [place] body weight (based on NIH guidelines): 58.967 kg Excess body weight loss: 5.4% The patient is a 65 year-old F who presents for Bariatric Assessment. Patient presents today for lab band follow. His approximately 1 week postop. Past Medical History Past Medical History: Diabetes Mellitus, Hyperlipidemia, Hypertension, Renal Disease, Thyroid Disorder Additional Past Medical History / Comment(s): History of kidney stones. 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 benign ovarian tumor. Heart murmur, iron deficient anemia-last iron infusion 04-26-21, hx. of elevated clacium History of Any Multi-Drug Resistant Organisms: None Reported Past Surgical History: Bariatric Surgery, Hernia Repair, Hysterectomy, Orthopedic Surgery, Tonsillectomy Additional Past Surgical History / Comment(s): eye, thyroid biopsy, colonoscopy 1999 and 2016,left breast bx-chip present,cyst removed left breast, recent EGD. sleeve gastrectomy 05-10-21 Past Anesthesia/Blood Transfusion Reactions: No Reported Reaction Additional Past Anesthesia/Blood Transfusion Reaction / Comm: "chandni horse through my whole body after breast surgery"-doesn't think is related to anesthesia Smoking Status: Never smoker - Past Family History Mother Family Medical History: Cancer, CVA/TIA, Diabetes Mellitus, Myocardial Infarction ([place]) Additional Family Medical History / Comment(s): colon,kidney,breast CA.Two maternal aunts had colon cancer and one maternal aunt had breast cancer. Surgical - Exam Vital Signs Temp Pulse Resp BP 98.3 F 71 18 158/76 05/17/21 14:04 05/17/21 14:04 05/17/21 14:04 05/17/21 14:04 - General well developed, well nourished, no distress - Eyes PERRL - ENT normal pinna - Neck no masses - Respiratory normal expansion - Cardiovascular Rhythm: regular - Abdomen Abdomen: soft, non tender Bariatric Assessment & Plan Plan: Status post sleeve gastrectomy. Patient did quite well. She'll follow-up in 2 weeks. Bariatric Checklist Checklist: Plan: Checklist: EGD: 1. Hiatal hernia: 2. H. Pylori: HgbA1c: Vitamin D: Smoking: Never smoker Primary care physician referral: Dr. Gillian Maloney Psychiatry clearance: Cardiology clearance: Sleep study: Diet journal: VTE risk score: VTE risk level: Rehab needs at discharge:
== END | disposition home or self-care (01) ==
LOC: BARWHC3 13:46
PROVIDERS: ATTEND Surgery
DX: E66.01 Morbid (severe) obesity due to excess calories (principal); Z68.42 Body mass index [BMI] 45.0-49.9, adult; Z98.84 Bariatric surgery status; Z71.3 Dietary counseling and surveillance
CPT/HCPCS: 97803; G0463; 99211

== ENCOUNTER → 2021-06-07 | Outpatient (CLI) | payer MEDICARE, OTHER ==
[2021-06-07 14:48] VITALS: BP 147/71; PULSE 71; RESP 18; TEMP 98.5; BMI 45.3
[2021-06-07 15:52] LABS: HCT 37.8 % (34.0-46.0); HGB 12.6 gm/dL (11.4-16.0); MCH 26.2 pg (25.0-35.0); MCHC 33.3 g/dL (31.0-37.0); MCV 78.8 fL (80.0-100.0); Mean Platelet Volume 8.7; Platelet Count 220 k/uL (150-450); RDW 15.5 % (11.5-15.5); WBC 11.5 k/uL (3.8-10.6)
[2021-06-08 02:45] LABS: % Iron Saturation 12.44 (12.00-45.00); African American GFR (CKD) 68.5 (60.0-200.0); Albumin 4.1 g/dL (3.80-4.90); Albumin/Globulin Ratio 1.71 (1.60-3.17); Anion Gap 11.7 mmol/L (4.00-12.00); Calcium 10.8 mg/dL (8.7-10.3); Carbon Dioxide 21.3 mmol/L (21.6-31.8); Ferritin 1167.8 ng/mL (10.0-291.0); Folate, Serum 16.4 ng/mL; Globulin 2.4 g/dL (1.6-3.3); Magnesium 1.7 mg/dL (1.5-2.4); Non-African American GFR(CKD) 59.1 (60.0-200.0); Potassium 4.3 mmol/L (3.5-5.5); Total Bilirubin 0.8 mg/dL (0.2-1.2); Total Protein 6.5 g/dL (6.2-8.2)
[2021-06-08 13:45] LABS: Zinc, Serum 59 ug/dL (60-130)
[2021-06-09 06:03] LABS: Vit B1(Thiamine) 46 ug/L (38-122)
[2021-06-09 06:13] LABS: Vitamin A 30 ug/dL (38-106)
== END | disposition home or self-care (01) ==
LOC: BARWHC3 13:49
PROVIDERS: ATTEND Surgery
DX: D50.8 Other iron deficiency anemias (principal); E44.0 Moderate protein-calorie malnutrition; E55.9 Vitamin D deficiency, unspecified; T56.894A Toxic effect of other metals, undetermined, initial encounter
CPT/HCPCS: 84255; 84425; 80053; 82607; 82728; 82746; 83540; 83550; 83735; 84443; 84590; 84630; 85027; 82306; 97803; G0463; 99211

== ENCOUNTER → 2021-07-12 | Outpatient (CLI) | payer MEDICARE, OTHER ==
[2021-07-12 13:18] VITALS: BP 152/85; PULSE 73; RESP 16; TEMP 98.2; BMI 41.8
--- NOTE | 2021-07-12 16:30 | P.HPBAR ---
Bariatric H&P - History & Physicial H&P Date: 07/12/21 History & Physicial: Visit/CC: f/u Patient initial contact: Initial weight: 139.706 kg Initial weight in pounds: 308.00 Height: 5 ft 6 in Initial BMI: 49.7 Last weight: Current weight: 117.48 kg Current weight in pounds: 259.00 Current BMI: 41.8 [place] body weight (based on NIH guidelines): 58.967 kg Excess body weight loss: 27.5% The patient is a 65 year-old F who presents for Bariatric Assessment. Patient presents today for bariatric follow. She's had some minimal GERD. She is an excellent weight loss. Past Medical History Past Medical History: Diabetes Mellitus, Hyperlipidemia, Hypertension, Renal Disease, Thyroid Disorder Additional Past Medical History / Comment(s): History of kidney stones. 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 benign ovarian tumor. Heart murmur, iron deficient anemia-last iron infusion 04-26-21, hx. of elevated clacium History of Any Multi-Drug Resistant Organisms: None Reported Past Surgical History: Bariatric Surgery, Hernia Repair, Hysterectomy, Orthopedic Surgery, Tonsillectomy Additional Past Surgical History / Comment(s): eye, thyroid biopsy, colonoscopy 1999 and 2016,left breast bx-chip present,cyst removed left breast, recent EGD. sleeve gastrectomy 05-10-21 Past Anesthesia/Blood Transfusion Reactions: No Reported Reaction Additional Past Anesthesia/Blood Transfusion Reaction / Comm: "chandni horse through my whole body after breast surgery"-doesn't think is related to anest hesia Past Psychological History: No Psychological Hx Reported Smoking Status: Never smoker Past Alcohol Use History: Rare Past Drug Use History: None Reported - Past Family History Mother Family Medical History: Cancer, CVA/TIA, Diabetes Mellitus, Myocardial Infarction ([place]) Additional Family Medical History / Comment(s): colon,kidney,breast CA.Two maternal aunts had colon cancer and one maternal aunt had breast cancer. Surgical - Exam Vital Signs Temp Pulse Resp BP 98.2 F 73 16 152/85 07/12/21 13:15 07/12/21 13:15 07/12/21 13:15 07/12/21 13:15 - General well developed, well nourished, no distress - Eyes PERRL - ENT normal pinna - Neck no masses - Respiratory normal expansion - Cardiovascular Rhythm: regular - Abdomen Abdomen: soft, non tender Bariatric Assessment & Plan Plan: Status post sleeve gastrectomy. Patient's GERD is minimal and will be observed. She'll follow-up in 4 weeks. Bariatric Checklist Checklist: Plan: Checklist: EGD: 1. Hiatal hernia: 2. H. Pylori: HgbA1c: Vitamin D: Smoking: Never smoker Primary care physician referral: Dr. Gillian Maloney Psychiatry clearance: Cardiology clearance: Sleep study: Diet journal: VTE risk score: VTE risk level: Rehab needs at discharge:
== END ==
LOC: BARWHC3 12:58
PROVIDERS: ATTEND Surgery
DX: E66.01 Morbid (severe) obesity due to excess calories (principal); Z68.41 Body mass index [BMI] 40.0-44.9, adult
CPT/HCPCS: 99211

== ENCOUNTER → 2021-07-21 | Outpatient (CLI) | payer MEDICARE, OTHER ==
--- NOTE | 2021-07-21 11:21 | MM ---
Reason for exam: follow-up at short interval from prior study. Last mammogram was performed 10 months ago. History: Patient is postmenopausal. Family history of breast cancer in mother at age 72 and breast cancer in aunt at age 72. Benign US biopsy breast VAD LT of the left breast, August 27, 2018. Physical Findings: Nurse did not find any significant physical abnormalities on exam. MG Diagnostic Mammo LT w CAD CC and MLO view(s) were taken of the left breast. Prior study comparison: September 15, 2020, bilateral MG diagnostic mammo w CAD SANTANA. Previous mammotome biopsy in the left breast. No significant new findings when compared with previous films. These results were verbally communicated with the patient and result sheet given to the patient on 07/21/21. ASSESSMENT: Benign, BI-RAD 2 RECOMMENDATION: Routine screening mammogram of both breasts in 2 months. Back on schedule for August 2021.
== END ==
LOC: RADMAMWWP 09:43
PROVIDERS: ATTEND Surgery
DX: R92.8 Other abnormal and inconclusive findings on diagnostic imaging of breast (principal)
CPT/HCPCS: 77065

== ENCOUNTER → 2021-07-29 | Outpatient (CLI) | payer OTHER, MEDICARE ==
[2021-07-29 13:46] VITALS: BP 158/88; PULSE 56; RESP 18; TEMP 98.3
--- NOTE | 2021-07-29 14:13 | P.PN ---
Subjective Progress Note Date: 07/29/21 Principal diagnosis: fibrocystic breast disease left breast mass/ possible sebaceous cyst mass Surveillance fibrocystic breast changes Radha is a 65-year-old white female status post excision of a lipoma from her left breast on . Additionally she had left axillary skin tags 3 removed which were all benign acrochordon. She underwent a recent left breast mammogram which was benign BIRADS 2. She had a prior bilateral mammogram in 122 220 which was benign BIRADS 2. She is not complaining of any lumps, masses or nodules in her breast. No nipple discharge or skin changes in her breast of concern. The patient has lost approximately 80 pounds since her last visit, she has had gastric sleeve surgery. CAffiene: tea daily 2 cups/ she stopped the caffiene Nicotine: Negative Theophylline: rarely Hormones: Negative Family history: Mother: colon cancer, kidney cancer, breast cancer maternal aunts two: Breast and colon cancer in 2 aunts maternal uncle: stomach cancer History: Menarche: 9 09/26 breast fed: yes, age at first : 23 menopasue: BENJI at 49 not for cancer BCP: 1 year hormones: none Surgical history: 1. Total abdominal hysterectomy 2. Right 3. Right knee 4. Hernia repair 5. Tonsillectomy 6. Left breast ultrasound-guided core biopsy 7. patient had a gastric sleeve procedure for obesity ( has lost 80 pounds) Patient thinks her hernia was repaired, and is waiting to see what to do about the parathyroid. Medical history: Diabetes A1C is improved High blood pressure High cholesterol Hypothyroid gout anemia heart murmur Social History: smoke: none alcohol: rare drugs: none - Constitutional Constitutional: Denies chills, Denies fever - EENT Eyes: denies blurred vision, denies pain Ears: right: decreased hearing, deny: tinnitus Ears, nose, mouth and throat: Denies headache, Denies sore throat - Breasts Breasts: bilateral: as per HPI - Cardiovascular Cardiovascular: Denies chest pain, Denies shortness of breath - Respiratory Respiratory: Denies cough - Gastrointestinal Gastrointestinal: Denies abdominal pain, Denies diarrhea, Denies nausea, Denies vomiting - Genitourinary (Female) Genitourinary: Reports kidney stones, Denies dysuria, Denies hematuria - Menstruation Menstruation: Reports post hysterectomy - Musculoskeletal Musculoskeletal: Denies myalgias - Integumentary Integumentary: Denies pruritus, Denies rash - Neurological Neurological: Denies numbness, Denies weakness - Psychiatric Psychiatric: Denies anxiety, Denies depression - Endocrine Endocrine: Denies fatigue, Denies weight change - Hematologic/Lymphatic Comment: aspirin - Allergic/Immunologic Allergic/Immunologic: Reports as per HPI Objective - Vital Signs Vital signs: Vital Signs Temp 98.3 F 07/29/21 13:43 Pulse 56 L 07/29/21 13:43 Resp 18 07/29/21 13:43 BP 158/88 07/29/21 13:43 Pulse Ox 99 07/29/21 13:43 Intake & Output 07/28/21 07/29/21 07/29/21 18:59 06:59 18:59 Weight 113.398 kg - Constitutional General appearance: Present: cooperative - EENT Eyes: Present: EOMI ENT: Present: hearing grossly normal - Neck Neck: Present: normal ROM - Respiratory Respiratory: bilateral: CTA - Cardiovascular Rhythm: regular Heart sounds: normal: S1, S2 - Gastrointestinal General gastrointestinal: Present: soft - Integumentary Integumentary: Present: normal turgor - Musculoskeletal Musculoskeletal: Present: gait normal - Psychiatric Psychiatric: Present: A&O x's 3, appropriate affect, intact judgment & insight - Additional findings Additional findings: Breast Exam: Bra: 40 B Inspection: bilateral grade 3 ptosis palpation: Right breast: Fibrocystic changes no dominant masses or nodules of concern of multiple positional exam Right axilla: No adenopathy of concern Left breast: Multi-positional exam fibrocystic changes no dominant masses or nodules of concern Left axilla: No adenopathy of concern Assessment and Plan Assessment: Impression: 1. Right lateral fibrocystic breast changes 2. Recent left breast mammogram benign BIRADS 2 3. Patient breast mammogram August 2021 Plan: 1. Right breast mammogram on schedule 2. Follow-up after right breast mammogram 3. Right breast mammogram is stable bilateral mammogram in approximately 1 year from that time with follow-up at that time 4. Patient follow up sooner if any questions or concerns CC: Dr. Gillian Gloria
== END | disposition home or self-care (01) ==
LOC: WWCWWP 13:35
PROVIDERS: ATTEND Surgery
DX: Z53.9 Procedure and treatment not carried out, unspecified reason (principal)

== ENCOUNTER → 2021-08-23 | Outpatient (CLI) | payer MEDICARE, OTHER ==
[2021-08-23 13:40] VITALS: BMI 39.5
[2021-08-23 13:42] VITALS: BP 146/78; PULSE 78; RESP 18; TEMP 98.3
== END | disposition home or self-care (01) ==
LOC: BARWHC3 12:57
PROVIDERS: ATTEND Surgery
DX: E66.01 Morbid (severe) obesity due to excess calories (principal); D50.8 Other iron deficiency anemias; E55.9 Vitamin D deficiency, unspecified; K90.9 Intestinal malabsorption, unspecified; T56.894A Toxic effect of other metals, undetermined, initial encounter
CPT/HCPCS: 97803; G0463; 99211

== ENCOUNTER → 2021-08-23 | Outpatient (CLI) | payer MEDICARE, OTHER ==
[2021-08-23 15:40] LABS: Appearance,Urine Cloudy (Clear); Bacteria,Urine Occasional /hpf; Bilirubin,Urine Negative (Negative); Blood,Urine Negative (Negative); Calcium Oxalate Crystals,Urine Occasional /hpf; Color,Urine Yellow; Glucose,Urine (UA) Negative (Negative); Ketones,Urine Negative (Negative); Leukocyte Esterase,Urine Negative (Negative); Mucus,Urine Few /hpf; Nitrite,Urine Negative (Negative); PH, Urine 5.5 (5.0-8.0); Protein,Urine 1+ (Negative); RBC,Urine 1 /hpf (0-5); Specific Gravity,Urine 1.022 (1.001-1.035); Squamous Epithelial Cell,Urine 13 /hpf (0-4); WBC,Urine 5 /hpf (0-5)
[2021-08-23 16:09] LABS: Creatinine,Urine Random 189.6 mg/dL; Protein/Creatinine Ratio,Urine 0.137
[2021-08-23 17:56] LABS: Basophils # (A) 0.05 X 10*3/uL (0.00-0.10); Basophils % (A) 0.6 %; Eosinophils # (A) 0.34 X 10*3/uL (0.04-0.35); Eosinophils % (A) 3.8 %; HCT 39.1 % (37.2-46.3); HGB 11.9 g/dL (12.0-15.0); Lymphocytes # (A) 1.68 X 10*3/uL (0.90-5.00); MCH 23.9 pg (27.0-32.0); MCHC 30.4 g/dL (32.0-37.0); MCV 78.5 fL (80.0-97.0); Mean Platelet Volume 12.1 fL (9.5-12.2); Monocytes # (A) 0.61 X 10*3/uL (0.20-1.00); Monocytes % (A) 6.9 %; Neutrophils # (A) 6.14 X 10*3/uL (1.80-7.70); Neutrophils % (A) 69.4 %; Platelet Count 240 X 10*3/uL (140-440); RBC 4.98 X 10*6/uL (4.10-5.20); RDW 14.9 % (11.5-14.5); WBC 8.85 X 10*3/uL (4.50-10.00)
[2021-08-23 20:25] LABS: % Iron Saturation 16.42 (12.00-45.00); African American GFR (CKD) 77.8 (60.0-200.0); Albumin 3.9 g/dL (3.8-4.9); Albumin/Globulin Ratio 1.86 (1.60-3.17); Anion Gap 10.1 mmol/L (10.00-18.00); BUN/Creat Ratio 19.56 Ratio (12.00-20.00); Blood Urea Nitrogen 17.6 mg/dL (9.0-27.0); Calcium 11.4 mg/dL (8.7-10.3); Carbon Dioxide 23.9 mmol/L (20.0-27.5); Globulin 2.1 g/dL (1.6-3.3); Magnesium 1.9 mg/dL (1.5-2.4); Non-African American GFR(CKD) 67.1 (60.0-200.0); Phosphorus 1.8 mg/dL (2.4-5.1); Potassium 3.8 mmol/L (3.5-5.5); Total Bilirubin 0.8 mg/dL (0.30-1.20); Uric Acid 7.4 mg/dL (2.9-7.7)
[2021-08-23 20:28] LABS: Folate, Serum 11.3 ng/mL (4.40-31.00)
[2021-08-24 12:49] LABS: Zinc, Serum 61 ug/dL (60-130)
[2021-08-25 10:19] LABS: Vitamin A 48 ug/dL (38-106)
[2021-08-25 10:35] LABS: Vit B1(Thiamine) 47 ug/L (38-122)
== END | disposition home or self-care (01) ==
LOC: LABWHC1 14:14
PROVIDERS: ATTEND Internal Medicine Nephrology
DX: N18.32 Chronic kidney disease, stage 3b (principal); E55.9 Vitamin D deficiency, unspecified; N25.9 Disorder resulting from impaired renal tubular function, unspecified; M10.9 Gout, unspecified; N39.0 Urinary tract infection, site not specified; D64.9 Anemia, unspecified; R80.9 Proteinuria, unspecified
CPT/HCPCS: 36415; 80053; 81001; 82306; 82570; 82607; 82728; 82746; 83540; 83550; 83735; 83970; 84100; 84156; 84255; 84425; 84443; 84550; 84590; 84630; 85025

== ENCOUNTER → 2021-09-13 | Outpatient (CLI) | payer MEDICARE, OTHER ==
[2021-09-13 14:43] VITALS: BP 126/71; PULSE 61; TEMP 98.2; BMI 37.9
--- NOTE | 2021-09-13 16:51 | P.HPBAR ---
Bariatric H&P - History & Physicial H&P Date: 09/13/21 History & Physicial: Visit/CC: four month follow up Patient initial contact: Initial weight: 139.706 kg Initial weight in pounds: 308.00 Height: 5 ft 6 in Initial BMI: 49.7 Last weight: Current weight: 106.594 kg Current weight in pounds: 235.00 Current BMI: 37.9 [place] body weight (based on NIH guidelines): 58.967 kg Excess body weight loss: 41.0% The patient is a 65 year-old F who presents for Bariatric Assessment. Patient r esents today for bariatric follow-up. She has minimal GERD. She's had very good weight loss. Past Medical History Past Medical History: Diabetes Mellitus, Hyperlipidemia, Hypertension, Renal Disease, Thyroid Disorder Additional Past Medical History / Comment(s): History of kidney stones. 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 benign ovarian tumor. Heart murmur, iron deficient anemia-last iron infusion 04-26-21, hx. of elevated clacium History of Any Multi-Drug Resistant Organisms: None Reported Past Surgical History: Bariatric Surgery, Hernia Repair, Hysterectomy, Orthopedic Surgery, Tonsillectomy Additional Past Surgical History / Comment(s): eye, thyroid biopsy, colonoscopy 1999 and 2016,left breast bx-chip present,cyst removed left breast, recent EGD. sleeve gastrectomy 05-10-21 Past Anesthesia/Blood Transfusion Reactions: No Reported Reaction Additional Past Anesthesia/Blood Transfusion Reaction / Comm: "chandni horse through my whole body after breast surgery"-doesn't think is related to anesthesia Past Psychological History: No Psychological Hx Reported Smoking Status: Never smoker Past Alcohol Use History: Rare Past Drug Use History: None Reported - Past Family History Mother Family Medical History: Cancer, CVA/TIA, Diabetes Mellitus, Myocardial Infarction ([place]) Additional Family Medical History / Comment(s): colon,kidney,breast CA.Two maternal aunts had colon cancer and one maternal aunt had breast cancer. Surgical - Exam Vital Signs Temp Pulse BP 98.2 F 61 126/71 09/13/21 14:39 09/13/21 14:39 09/13/21 14:39 - General well developed, well nourished, no distress - Eyes PERRL - ENT normal pinna - Neck no masses - Respiratory normal expansion - Cardiovascular Rhythm: regular - Abdomen Abdomen: soft, non tender Bariatric Assessment & Plan Plan: Improving morbid obesity. Patient's GERD is minimal and will be observed. She'll follow-up in 4 weeks. Bariatric Checklist Checklist: Plan: Checklist: EGD: 1. Hiatal hernia: 2. H. Pylori: HgbA1c: Vitamin D: Smoking: Never smoker Primary care physician referral: Dr. Gillian Maloney Psychiatry clearance: Cardiology clearance: Sleep study: Diet journal: VTE risk score: VTE risk level: Rehab needs at discharge:
== END | disposition home or self-care (01) ==
LOC: BARWHC3 13:00
PROVIDERS: ATTEND Surgery
DX: E66.01 Morbid (severe) obesity due to excess calories (principal); K21.9 Gastro-esophageal reflux disease without esophagitis
CPT/HCPCS: 99211

== ENCOUNTER → 2021-09-16 | Outpatient (CLI) | payer MEDICARE, OTHER ==
--- NOTE | 2021-09-20 09:54 | MM ---
Reason for exam: follow-up at short interval from prior study. Last mammogram was performed 2 months ago. History: Patient is postmenopausal. Family history of breast cancer in mother at age 72 and breast cancer in aunt at age 72. Benign US biopsy breast VAD LT of the left breast, August 27, 2018. Physical Findings: Nurse did not find any significant physical abnormalities on exam. MG Diagnostic Mammo w CAD SANTANA Bilateral CC, MLO, LM, and spot compression CC view(s) were taken. Spot compression MLO view(s) were taken of the left breast. Prior study comparison: July 21, 2021, left breast MG diagnostic mammo LT w CAD. September 15, 2020, bilateral MG diagnostic mammo w CAD SANTANA. There are scattered fibroglandular densities. Previous mammotome biopsy in the left breast. There is chronic nodularity bilaterally. Right 9 o'clock oval focal asymmetric density is more defined but on spot view appears circumscribedand becomes low density, not seen on lateral or spot MLO, probable cyst, 6 month follow up recommended. Left central outer nodular asymmetric density middle depth becomes less defined on spot 3D, 6 month follow up recommended. These results were verbally communicated with the patient and result sheet given to the patient on 09/16/21. ASSESSMENT: Probably benign, BI-RAD 3 RECOMMENDATION: Follow-up diagnostic mammogram of both breasts in 6 months.
== END | disposition home or self-care (01) ==
LOC: RADMAMWWP 14:03
PROVIDERS: ATTEND Surgery
DX: R92.8 Other abnormal and inconclusive findings on diagnostic imaging of breast (principal)
CPT/HCPCS: 77066

== ENCOUNTER → 2021-09-24 | Outpatient (CLI) | payer MEDICARE, OTHER ==
--- NOTE | 2021-09-24 08:56 | BD ---
EXAMINATION TYPE: Axial Bone Density DATE OF EXAM: 09/24/2021 COMPARISON: 07.06.2016 CLINICAL HISTORY: 65 YR OLD FEMALE......ICD-10 CODE: Z78.0 MENOPAUSAL Height: 64 Weight: 234 FRAX RISK QUESTIONS: Secondary Osteoporosis: YES 1. Type 1 Diabetes: YES 4. Malnutrition: BARIATRIC SLEEVE RISK FACTORS HISTORY OF: Family History of Osteoporosis: UNSURE Postmenopausal woman: YES, HYST AT AGE 48 Frequent falls: UNSTEADY Hyperparathyroidism: YES, OVER ACTIVE PARATHYROID GLANDS Adrenal Insufficiency: NO MEDICATIONS: Thyroid Medications: YES, SYNTHROID, 4 YRS, Additional Medications: METFORMIN, GLIPIZIDE, BP MEDS, REFLUX MEDS, STATINS FOR CHOLESTEROL, INSULIN , MULTIVITAMIN, CALCIUM REMOVAL MEDS Additional History: DIABETIC, BARIATRIC SLEEVE, HYPERCALCEMIA, CHOLESTEROL, HYPERTENSION, REFLUX, EXAM MEASUREMENTS: Bone mineral densitometry was performed using the [employer] System. Bone mineral density as measured about the Lumbar spine is: ----- L1-L4(G/cm2): 1.162 T Score Values are as follows: ----- L1: 0.5 ----- L2: 1.0 ----- L3: -1.1 ----- L4: -0.9 ----- L1-L4: -0.2 Bone mineral density has: Decreased -5.6% since study of: 07.06.2016 Bone mineral density about the R hip (g/cm2): 0.905 Bone mineral density about the L hip (g/cm2): 0.896 T Score values are as follows: -----R Neck: -1.2 -----L Neck: -1.2 -----R Total: -0.8 -----L Total: -0.9 Bone mineral density has: Decreased -19.4% since study of: 07.06.2016 FRAX%s: THERE IS A 7.6% CHANCE FOR A MAJOR OSTEOPOROTIC FX AND A 0.6% FOR HIPS.....PROBABILITY FOR FX IN 10 YRS TIME IMPRESSION: Osteopenia (T Score between -2.5 and -1). There is slightly increased risk of fracture and the patient may be considered for treatment. Re-Screen 2-5 years. NOTE: T-SCORE=SD OF THE YOUNG ADULT MEAN.
== END | disposition home or self-care (01) ==
LOC: RADBDWWP 07:35
PROVIDERS: ATTEND Family Medicine
DX: Z13.820 Encounter for screening for osteoporosis (principal); E11.65 Type 2 diabetes mellitus with hyperglycemia; E83.52 Hypercalcemia; M85.80 Other specified disorders of bone density and structure, unspecified site; Z78.0 Asymptomatic menopausal state
CPT/HCPCS: 77080

== ENCOUNTER → 2021-10-07 | Outpatient (CLI) | payer OTHER, MEDICARE ==
[2021-10-07 16:13] VITALS: BP 129/64; PULSE 68; RESP 18; TEMP 98.2
--- NOTE | 2021-10-07 16:19 | P.PN ---
Progress Note - Text Progress Note Date: 10/07/21 Carolyn status post bilateral mammogram on [id number]. [place] [id number]. On the most recent mammogram there is recommendation for repeat bilateral in 6 months. She has lost approximately 100 pounds in the last 6 months. She does not feel any new lumps masses or nodules for which she is concerned in her breast. She does not wish a another breast examination at this time is one was just done in July. She understands the findings on the mammogram and will have a repeat bilateral mammogram and physician exam in 6 months. CC: Bilateral mammogram in 6 months with appointment at that time CC: Dr. Carter
== END | disposition home or self-care (01) ==
LOC: WWCWWP 16:04
PROVIDERS: ATTEND Surgery
DX: Z53.9 Procedure and treatment not carried out, unspecified reason (principal)

== ENCOUNTER → 2022-01-17 | Outpatient (CLI) | payer MEDICARE, OTHER ==
[2022-01-17 13:03] VITALS: BP 169/76; PULSE 56; RESP 16; TEMP 98.3; BMI 35.8
--- NOTE | 2022-01-17 15:45 | P.HPBAR ---
Bariatric H&P - History & Physicial H&P Date: 01/17/22 History & Physicial: Visit/CC: sleeve f/u Patient initial contact: Initial weight: 139.706 kg Initial weight in pounds: 308.00 Height: 5 ft 6 in Initial BMI: 49.7 Last weight: Current weight: 100.698 kg Current weight in pounds: 222.00 Current BMI: 35.8 [place] body weight (based on NIH guidelines): 58.967 kg Excess body weight loss: 48.3% The patient is a 66 year-old F who presents for Bariatric Assessment. Patient presents today for sleeve gastric fall. She has completed GERD. Her GERD is minimal. Past Medical History Past Medical History: Diabetes Mellitus, Hyperlipidemia, Hypertension, Renal Disease, Thyroid Disorder Additional Past Medical History / Comment(s): History of kidney stones. 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 benign ovarian tumor. Heart murmur, iron deficient anemia-last iron infusion 04-26-21, hx. of elevated clacium History of Any Multi-Drug Resistant Organisms: None Reported Past Surgical History: Bariatric Surgery, Hernia Repair, Hysterectomy, Orthopedic Surgery, Tonsillectomy Additional Past Surgical History / Comment(s): eye, thyroid biopsy, colonoscopy 1999 and 2016,left breast bx-chip present,cyst removed left breast, recent EGD. sleeve gastrectomy 05-10-21 Past Anesthesia/Blood Transfusion Reactions: No Reported Reaction Additional Past Anesthesia/Blood Transfusion Reaction / Comm: "chandni horse through my whole body after breast surgery"-doesn't think is related to anesthesia Past Psychological History: No Psychological Hx Reported Smoking Status: Never smoker Past Alcohol Use History: Rare Past Drug Use History: None Reported - Past Family History Mother Family Medical History: Cancer, CVA/TIA, Diabetes Mellitus, Myocardial Infarction ([place]) Additional Family Medical History / Comment(s): colon,kidney,breast CA.Two maternal aunts had colon cancer and one maternal aunt had breast cancer. Surgical - Exam Vital Signs Temp Pulse Resp BP 98.3 F 56 L 16 169/76 01/17/22 13:02 01/17/22 13:02 01/17/22 13:02 01/17/22 13:02 - General well developed, well nourished, moderate distress - Eyes normal ocular movement - Abdomen Abdomen: soft, non tender Bariatric Assessment & Plan Plan: Status post sleeve gastrectomy. Patient did quite well. Her GERD is minimal and will be observed. She'll follow-up in 4 weeks. Bariatric Checklist Checklist: Plan: Checklist: EGD: 1. Hiatal hernia: 2. H. Pylori: HgbA1c: Vitamin D: Smoking: Never smoker Primary care physician referral: Dr. Gillian Maloney Psychiatry clearance: Cardiology clearance: Sleep study: Diet journal: VTE risk score: VTE risk level: Rehab needs at discharge:
[2022-01-17 18:26] LABS: HCT 40.3 % (37.2-46.3); HGB 12.2 g/dL (12.0-15.0); MCH 23.9 pg (27.0-32.0); MCHC 30.3 g/dL (32.0-37.0); Mean Platelet Volume 11.6 fL (9.5-12.2); NRBC Per 100 WBC 0 /100 WBCS (0.0-0.0); Platelet Count 255 X 10*3/uL (140-440); RDW 13.6 % (11.5-14.5); WBC 8.53 X 10*3/uL (4.50-10.00)
[2022-01-18 03:07] LABS: % Iron Saturation 20.87 (12.00-45.00); African American GFR (CKD) 72.9 (60.0-200.0); Albumin/Globulin Ratio 1.8 (1.60-3.17); Anion Gap 12.9 mmol/L (10.00-18.00); BUN/Creat Ratio 21.19 Ratio (12.00-20.00); Calcium 10.8 mg/dL (8.7-10.3); Carbon Dioxide 20.6 mmol/L (20.0-27.5); Globulin 2.2 g/dL (1.6-3.3); Magnesium 2.1 mg/dL (1.5-2.4); Non-African American GFR(CKD) 62.9 (60.0-200.0); Potassium 4.4 mmol/L (3.5-5.5); Total Bilirubin 0.7 mg/dL (0.30-1.20); Total Protein 6.2 g/dL (6.2-8.2)
[2022-01-18 12:33] LABS: Zinc, Serum 66 ug/dL (60-130)
[2022-01-19 05:29] LABS: Vitamin A 60 ug/dL (38-106)
[2022-01-19 06:15] LABS: Vit B1(Thiamine) 61 ug/L (38-122)
== END | disposition home or self-care (01) ==
LOC: BARWHC3 12:48
PROVIDERS: ATTEND Surgery
DX: E66.01 Morbid (severe) obesity due to excess calories (principal); D50.8 Other iron deficiency anemias; E44.0 Moderate protein-calorie malnutrition; E55.9 Vitamin D deficiency, unspecified; T56.894A Toxic effect of other metals, undetermined, initial encounter
CPT/HCPCS: 84255; 84425; 80053; 82607; 82728; 82746; 83540; 83550; 83735; 84443; 84590; 84630; 85027; 82306; 36415; G0463; 99211

== ENCOUNTER 2022-01-26 17:17 | Emergency (ER) | payer MEDICARE, OTHER ==
[2022-01-26] MEDS ORDERED: ACETAMINOPHEN TAB 500 MG TAB PO STA (18:07)
--- NOTE | 2022-01-26 18:34 | ED ---
General Adult HPI - General Chief complaint: Upper Respiratory Infection Stated complaint: Covid+/infusion Time Seen by Provider: 01/26/22 18:07 Source: patient Mode of arrival: ambulatory Limitations: no limitations - History of Present Illness Initial comments: Dictation was produced using [employer] dictation software. please excuse any grammatical, word or spelling errors. Chief Complaint: 66-year-old female presents emergency department for monoclonal antibodies History of Present Illness: 66-year-old female she has past medical history diabetes and hypertension. She's been symptom medical COVID-19 for the last 3-4 days. Patient had a discussion with another medical professional who instructed her to come to the ER to get monoclonal antibodies. Patient is not sure how she contracted the virus. She is up-to-date with her vaccinations but has not received a booster vaccination for COVID-19. Patient has been having fevers, cough and chills. Denies any shortness of breath. The ROS documented in this emergency department record has been reviewed and confirmed by me. Those systems with pertinent positive or negative responses have been documented in the HPI. All other systems are other negative and/or noncontributory. PHYSICAL EXAM: General Impression: Alert and oriented x3, not in acute distress HEENT: Normocephalic atraumatic, extra-ocular movements intact, pupils equal and reactive to light bilaterally, mucous membranes moist. Cardiovascular: Heart regular rate and rhythm Chest: Able to complete full sentences, no retractions, no tachypnea Abdomen: abdomen soft, non-tender, non-distended, no organomegaly Musculoskeletal: Pulses present and equal in all extremities, no peripheral edema Motor: no focal deficits noted Neurological: CN II-XII grossly intact, no focal motor or sensory deficits noted Skin: Intact with no visualized rashes Psych: Normal affect and mood ED course: 66-year-old female presents to the emergency department for monoclonal antibody infusion. Vital signs upon arrival shows temperature 102.3, rest of vital signs within acceptable limits. Patient is not hypoxic. At the bedside she is not dyspneic. She is not tachypneic or showing any signs of respiratory distress. Patient is agreeable for monoclonal antibody infusion. Patient name monoclonal antibodies. She is observed in the emergency department after monoclonal antibody infusion tolerated infusion well. Patient be discharged. Temperature is improved after having been given Tylenol. Patient advised follow-up with primary care doctor. Return precautions discussed. - Related Data Home Medications Medication Instructions Recorded Confirmed Aspirin 81 mg PO QAM 07/24/18 01/17/22 Atorvastatin [Lipitor] 20 mg PO HS 07/24/18 01/17/22 Levothyroxine Sodium [Synthroid] 75 mcg PO QAM 07/24/18 01/17/22 lisinopriL [Zestril] 5 mg PO QAM 07/24/18 01/17/22 amLODIPine BESYLATE 5 mg PO QAM 04/24/20 01/17/22 Insulin Glargine [Lantus] 2 unit SQ HS 01/08/21 01/17/22 Ubidecarenone [Co Q-10] 100 mg PO DAILY 01/10/22 01/17/22 Previous Rx's Medication Instructions Recorded Omeprazole [PriLOSEC] 40 mg PO DAILY #30 capsule. 05/11/21 Ondansetron Odt [Zofran Odt] 4 mg PO Q8HR PRN #9 tab 05/11/21 Allergies Allergy/AdvReac Type Severity Reaction Status Date / Time bee venom protein (honey bee) Allergy Swelling Verified 01/26/22 17:43 codeine Allergy Swelling Verified 01/26/22 17:43 latex Allergy Rash/Hives Verified 01/26/22 17:43 artificial sweetners Allergy Anaphylaxis Uncoded 01/26/22 17:43 (unknown dose) Review of Systems ROS Statement: Those systems with pertinent positive or pertinent negative responses have been documented in the HPI. ROS Other: All systems not noted in ROS Statement are negative. Past Medical History Past Medical History: Diabetes Mellitus, Hyperlipidemia, Hypertension, Renal Disease, Thyroid Disorder Additional Past Medical History / Comment(s): History of kidney stones. 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 benign ovarian tumor. Heart murmur, iron deficient anemia-last iron infusion 04-26-21, hx. of elevated clacium History of Any Multi-Drug Resistant Organisms: None Reported Past Surgical History: Bariatric Surgery, Hernia Repair, Hysterectomy, Orthopedic Surgery, Tonsillectomy Additional Past Surgical History / Comment(s): eye, thyroid biopsy, colonoscopy 1999 and 2017,left breast bx-chip present,cyst removed left breast, recent EGD. sleeve gastrectomy 05-10-21 Past Anesthesia/Blood Transfusion Reactions: No Reported Reaction Additional Past Anesthesia/Blood Transfusion Reaction / Comment(s): "chandni horse through my whole body after breast surgery"-doesn't think is related to anesthesia Past Psychological History: No Psychological Hx Reported Smoking Status: Never smoker Past Alcohol Use History: Rare Past Drug Use History: None Reported - Past Family History Mother Family Medical History: Cancer, CVA/TIA, Diabetes Mellitus, Myocardial Infarction ([place]) Additional Family Medical History / Comment(s): colon,kidney,breast CA.Two maternal aunts had colon cancer and one maternal aunt had breast cancer. General Exam Limitations: no limitations Course Vital Signs 01/26/22 01/26/22 17:40 18:14 Temperature 102.3 F H Pulse Rate 85 Respiratory 18 18 Rate Blood Pressure 104/53 O2 Sat by Pulse 95 Oximetry Medical Decision Making - Lab Data Lab Results 01/26/22 Range/Units 17:48 Coronavirus (PCR) Detected A (Not Detectd) Disposition Clinical Impression: Coronavirus infection Disposition: HOME SELF-CARE Condition: Good Instructions (If sedation given, give patient instructions): Coronavirus Disease 2019 (COVID-19) Is patient prescribed a controlled substance at d/c from ED?: No Referrals: Gillian Maloney MD [Primary Care Provider] - 1-2 days
[2022-01-26] MEDS ORDERED: BEBTELOVIMAB (EUA) 175 MG/2 ML VIAL IV ONE (19:00)
[2022-01-26 21:53] VITALS: RESP 15
[2022-01-26 22:22] VITALS: BP 101/60; PULSE 81; TEMP 99
== END 2022-01-26 22:35 | disposition home or self-care (01) ==
LOC: EC 17:17
DX: U07.1 COVID-19 (principal); E11.9 Type 2 diabetes mellitus without complications; I10 Essential (primary) hypertension; E07.9 Disorder of thyroid, unspecified; Z79.1 Long term (current) use of non-steroidal anti-inflammatories (NSAID); Z91.030 Bee allergy status; Z88.5 Allergy status to narcotic agent; Z91.040 Latex allergy status; Z91.018 Allergy to other foods
CPT/HCPCS: 87635; 99284; Q0222

== ENCOUNTER 2022-02-28 11:09 | Day surgery (SDC) | payer MEDICARE, OTHER ==
[2022-02-25 09:49] VITALS: BMI 33.9
[~2022-02-28 11:09] MED LIST changes: -DEXAMETHASONE SOD PHOSPHATE 4 MG/ML 1 ML VIAL IV ONE; -ENOXAPARIN 40 MG/0.4 ML SYRINGE SQ PRN; +LACTATED RINGERS 1,000 ML IV SCH; -ONDANSETRON 4 MG/2 ML VIAL IVP ONE; -ceFAZolin 3 GM in SODIUM CHLORIDE 0.9% 100 ML IVPB PRN
[2022-02-28 12:05] VITALS: TEMP 97.7
[2022-02-28] MEDS ORDERED: LACTATED RINGERS 1,000 ML IV ONE ×2 (12:05→13:08)
[2022-02-28 12:18] LABS: Glucose,Whole Blood 114 mg/dL (75-99)
[2022-02-28] MEDS ORDERED: PROPOFOL 10 MG/ML 20 ML VIAL IV ONE (12:50)
--- NOTE | 2022-02-28 12:51 | P.GSHP ---
History of Present Illness H&P Date: 02/28/22 Chief Complaint: Screening colonoscopy This a 66-year-old female presents today for screening colonoscopy. Patient denies any significant GI complaints. Her last colonoscopy was normal. Past Medical History Past Medical History: Diabetes Mellitus, Hyperlipidemia, Hypertension, Renal Disease, Thyroid Disorder Additional Past Medical History / Comment(s): History of kidney stones. "Kidney function fluctuates". Benign ovarian tumor. Heart murmur. Iron deficient anemia- last iron infusion 04-26-21. Hx of elevated calcium. Varicose vein in right leg. History of Any Multi-Drug Resistant Organisms: None Reported Past Surgical History: Bariatric Surgery, Hernia Repair, Hysterectomy, Orthopedic Surgery, Tonsillectomy Additional Past Surgical History / Comment(s): Eye surgery, thyroid biopsy, colonoscopy X2, left breast biopsy-chip present, cyst removed from left breast, EGD, sleeve gastrectomy 05-10-21. Past Anesthesia/Blood Transfusion Reactions: Previous Problems w/ Anesthesia, Family Hisory of Malignant Hyperthermia Additional Past Anesthesia/Blood Transfusion Reaction / Comment(s): "Dillon horse through my whole body after breast surgery". "After another surgery the same thing happened, had to stay 2 days in the hospital because of it". Cousin had grand mal seizures after tonsillectomy. Past Psychological History: No Psychological Hx Reported Smoking Status: Never smoker Past Alcohol Use History: Rare Past Drug Use History: None Reported - Past Family History Mother Family Medical History: Cancer, CVA/TIA, Diabetes Mellitus, Myocardial Infarction ([place]) Additional Family Medical History / Comment(s): Colon, kidney, breast Cancer. Two maternal aunts had colon cancer and one maternal aunt had breast cancer. Father Family Medical History: Cancer, Deep Vein Thrombosis (DVT) Additional Family Medical History / Comment(s): Prostate and skin cancer. Medications and Allergies Home Medications Medication Instructions Recorded Confirmed Type Aspirin 81 mg PO QAM 07/24/18 02/25/22 History Atorvastatin [Lipitor] 20 mg PO HS 07/24/18 02/25/22 History Levothyroxine Sodium [Synthroid] 75 mcg PO QAM 07/24/18 02/25/22 History lisinopriL [Zestril] 5 mg PO QAM 07/24/18 02/25/22 History amLODIPine BESYLATE 5 mg PO QAM 04/24/20 02/25/22 History Insulin Glargine [Lantus] 2 unit SQ HS 01/08/21 02/25/22 History Ubidecarenone [Co Q-10] 100 mg PO DAILY 01/10/22 02/25/22 History Cinacalcet HCl 30 mg PO Q48H 02/25/22 02/25/22 History Omeprazole [PriLOSEC] 40 mg PO DAILY PRN 02/25/22 02/25/22 History Allergies Allergy/AdvReac Type Severity Reaction Status Date / Time bee venom protein (honey bee) Allergy Swelling Verified 02/25/22 09:20 codeine Allergy Swelling Verified 02/25/22 09:20 latex Allergy Rash/Hives Verified 02/25/22 09:20 artificial sweetners Allergy Anaphylaxis Uncoded 02/25/22 09:20 (unknown dose) Surgical - Exam Vital Signs Temp Pulse Resp BP Pulse Ox 97.7 F 55 L 18 148/77 100 02/28/22 12:04 02/28/22 12:04 02/28/22 12:04 02/28/22 12:04 02/28/22 12:04 - General well developed, well nourished, no distress - Eyes PERRL - ENT normal pinna - Neck no masses - Respiratory normal expansion - Cardiovascular Rhythm: regular - Abdomen Abdomen: soft, non tender Results - Labs Abnormal Lab Results - Last 24 Hours (Table) 02/28/22 Range/Units 12:13 POC Glucose (mg/dL) 114 H (75-99) mg/dL Assessment and Plan Assessment: We'll perform screening colonoscopy.
--- NOTE | 2022-02-28 13:07 | P.OP ---
Date of Procedure: 02/28/22 Preoperative Diagnosis: Screening colonoscopy Postoperative Diagnosis: Diverticulosis Procedure(s) Performed: Colonoscopy Anesthesia: MAC Surgeon: Alejandro Rebolledo Pathology: none sent Condition: stable Disposition: PACU Description of Procedure: The patient's placed on the endoscopy table in the lateral position. He received IV sedation. Digital rectal exam was performed. This revealed no ebonized. The flexible colonoscope was then placed patient anus and passed throughout the entire colon. The ileocecal valve was visualized. The cecum, ascending transverse colon appeared normal. The descending and sigmoid colon had mild diverticulosis. Scope was brought back the rectum and this appeared n ormal. Scope withdrawn for patient.
[2022-02-28] MEDS ORDERED: IV FLUID CONTINUATION 600 ML IV ONE (13:08)
[2022-02-28 13:28] VITALS: BP 127/74; PULSE 55; RESP 18
== END 2022-02-28 13:41 | disposition home or self-care (01) ==
LOC: ORWHC2ENDO 11:09
PROVIDERS: ATTEND Surgery
DX: Z12.11 Encounter for screening for malignant neoplasm of colon (principal); K57.30 Diverticulosis of large intestine without perforation or abscess without bleeding; E11.9 Type 2 diabetes mellitus without complications; E78.5 Hyperlipidemia, unspecified; I10 Essential (primary) hypertension; E07.9 Disorder of thyroid, unspecified; N28.9 Disorder of kidney and ureter, unspecified; R01.1 Cardiac murmur, unspecified; Z87.442 Personal history of urinary calculi; Z98.890 Other specified postprocedural states; Z90.710 Acquired absence of both cervix and uterus; Z90.89 Acquired absence of other organs; Z90.3 Acquired absence of stomach [part of]; Z79.82 Long term (current) use of aspirin; Z79.890 Hormone replacement therapy; Z79.4 Long term (current) use of insulin; Z88.5 Allergy status to narcotic agent; Z91.030 Bee allergy status; Z91.02 Food additives allergy status; Z91.040 Latex allergy status; Z82.3 Family history of stroke; Z83.3 Family history of diabetes mellitus; Z82.49 Family history of ischemic heart disease and other diseases of the circulatory system; Z83.79 Family history of other diseases of the digestive system; Z80.51 Family history of malignant neoplasm of kidney; Z80.3 Family history of malignant neoplasm of breast; Z80.0 Family history of malignant neoplasm of digestive organs
CPT/HCPCS: J2704; G0121

== ENCOUNTER → 2022-03-14 | Outpatient (CLI) | payer MEDICARE, OTHER ==
[2022-03-14 13:50] VITALS: BP 153/77; PULSE 66; RESP 12; TEMP 98.5; BMI 34.5
--- NOTE | 2022-03-14 14:56 | P.HPBAR ---
Bariatric H&P - History & Physicial H&P Date: 03/14/22 History & Physicial: Visit/CC: sleeve follow up Patient initial contact: Initial weight: 139.706 kg Initial weight in pounds: 308.00 Height: 5 ft 6 in Initial BMI: 49.7 Last weight: Current weight: 97.069 kg Current weight in pounds: 214.00 Current BMI: 34.5 [place] body weight (based on NIH guidelines): 58.967 kg Excess body weight loss: 52.8% The patient is a 66 year-old F who presents for Bariatric Assessment. Patient presents today for sleeve gastrectomy follow-up. She is lost approximately 7 pounds her last visit. Her weight today is 214 pounds. She weight 222 pounds her last visit. Past Medical History Past Medical History: Diabetes Mellitus, Hyperlipidemia, Hypertension, Renal Disease, Thyroid Disorder Additional Past Medical History / Comment(s): History of kidney stones. "Kidney function fluctuates". Benign ovarian tumor. Heart murmur. Iron deficient anemia- last iron infusion 04-26-21. Hx of elevated calcium. Varicose vein in right leg. History of Any Multi-Drug Resistant Organisms: None Reported Past Surgical History: Bariatric Surgery, Hernia Repair, Hysterectomy, Orthopedic Surgery, Tonsillectomy Additional Past Surgical History / Comment(s): Eye surgery, thyroid biopsy, colonoscopy X2, left breast biopsy-chip present, cyst removed from left breast, EGD, sleeve gastrectomy 05-10-21. Past Anesthesia/Blood Transfusion Reactions: Previous Problems w/ Anesthesia, Family Hisory of Malignant Hyperthermia Additional Past Anesthesia/Blood Transfusion Reaction / Comm: "Dillon horse through my whole body after breast surgery". "After another surgery the same thing happened, had to stay 2 days in the hospital because of it". Cousin had grand mal seizures after tonsillectomy. Past Psychological History: No Psychological Hx Reported Smoking Status: Never smoker Past Alcohol Use History: Rare Past Drug Use History: None Reported - Past Family History Mother Family Medical History: Cancer, CVA/TIA, Diabetes Mellitus, Myocardial Infarction ([place]) Additional Family Medical History / Comment(s): Colon, kidney, breast Cancer. Two maternal aunts had colon cancer and one maternal aunt had breast cancer. Father Family Medical History: Cancer, Deep Vein Thrombosis (DVT) Additional Family Medical History / Comment(s): Prostate and skin cancer. Surgical - Exam Vital Signs Temp Pulse Resp BP 98.5 F 66 12 153/77 03/14/22 13:45 03/14/22 13:45 03/14/22 13:45 03/14/22 13:45 - General well developed, well nourished, no distress - Eyes PERRL - ENT normal pinna - Neck no masses - Abdomen Abdomen: soft, non tender Bariatric Assessment & Plan Plan: Morbid obesity improving. Patient's GERD is minimal and will be observed. She'll follow-up in 4 weeks. Bariatric Checklist Checklist: Plan: Checklist: EGD: 1. Hiatal hernia: 2. H. Pylori: HgbA1c: Vitamin D: Smoking: Never smoker Primary care physician referral: Dr. Gillian Maloney Psychiatry clearance: Cardiology clearance: Sleep study: Diet journal: VTE risk score: VTE risk level: Rehab needs at discharge:
== END | disposition home or self-care (01) ==
LOC: BARWHC3 13:02
PROVIDERS: ATTEND Surgery
DX: Z48.815 Encounter for surgical aftercare following surgery on the digestive system (principal)
CPT/HCPCS: 99211

== ENCOUNTER → 2022-03-21 | Outpatient (CLI) | payer MEDICARE, OTHER ==
--- NOTE | 2022-03-21 13:26 | MM ---
Reason for Exam: Follow-up at short interval from prior study. Last screening mammogram was performed 6 month(s) ago. Patient History: Menarche at age 9. First Full-Term at age 22. Left ovary removed at age 49. Right ovary removed at age 49. Hysterectomy at age 49. Postmenopausal. 08/27/2018, Benign Core Biopsy on the left side. Maternal aunt had breast cancer, age 72. Mother had breast cancer, age 72. Risk Values: Brianda 5 year model risk: 4.1%. NCI Lifetime model risk: 14.3%. Prior Study Comparison: 09/15/2020 Bilateral Diagnostic Mammogram, [facility]. 07/21/2021 Left Diagnostic Mammogram, [facility]. 09/16/2021 Bilateral Diagnostic Mammogram, [facility]. Tissue Density: The breast tissue is heterogeneously dense. This may lower the sensitivity of mammography. Findings: Analyzed By CAD. There is persistent nodularity present bilaterally. No suspicious increase in size of nodule or changing configuration is evident. A core markers within the left breast. Overall Assessment: Probably benign, BI-RAD 3 Management: Diagnostic Mammogram of both breasts in 6 months. A clinical breast exam by your physician is recommended on an annual basis and results should be correlated with mammographic findings. This exam should not preclude additional follow-up of suspicious palpable abnormalities. Results were given to the patient verbally at the time of exam. Electronically signed and approved by: Pierre Hernandez D.O. Radiologis
== END | disposition home or self-care (01) ==
LOC: RADMAMWWP 12:46
PROVIDERS: ATTEND Surgery
DX: Z12.31 Encounter for screening mammogram for malignant neoplasm of breast (principal)
CPT/HCPCS: 77066

== ENCOUNTER → 2022-04-11 | Outpatient (CLI) | payer MEDICARE, OTHER ==
[2022-04-11 13:38] VITALS: BP 164/76; PULSE 67; TEMP 98.3; BMI 34.0
--- NOTE | 2022-04-19 16:28 | P.HPBAR ---
Bariatric H&P - History & Physicial H&P Date: 04/19/22 History & Physicial: Visit/CC: sleeve f/u Patient initial contact: Initial weight: 139.706 kg Initial weight in pounds: 308.00 Height: 5 ft 6 in Initial BMI: 49.7 Last weight: Current weight: 95.708 kg Current weight in pounds: 211.00 Current BMI: 34.0 [place] body weight (based on NIH guidelines): 58.967 kg Excess body weight loss: 54.4% The patient is a 66 year-old F who presents for Bariatric Assessment. Patient resents today for bariatric follow-up. Her current weight is 211 pounds. She previously 214 pounds. She's had some mild GERD. Past Medical History Past Medical History: Diabetes Mellitus, Hyperlipidemia, Hypertension, Renal Disease, Thyroid Disorder Additional Past Medical History / Comment(s): History of kidney stones. "Kidney function fluctuates". Benign ovarian tumor. Heart murmur. Iron deficient anemia- last iron infusion 04-26-21. Hx of elevated calcium. Varicose vein in right leg. History of Any Multi-Drug Resistant Organisms: None Reported Past Surgical History: Bariatric Surgery, Hernia Repair, Hysterectomy, Orthopedic Surgery, Tonsillectomy Additional Past Surgical History / Comment(s): Eye surgery, thyroid biopsy, colonoscopy X2, left breast biopsy-chip present, cyst removed from left breast, EGD, sleeve gastrectomy 05-10-21. Past Anesthesia/Blood Transfusion Reactions: Previous Problems w/ Anesthesia, Family Hisory of Malignant Hyperthermia Additional Past Anesthesia/Blood Transfusion Reaction / Comm: "Dillon horse through my whole body after breast surgery". "After another surgery the same thing happened, had to stay 2 days in the hospital because of it". Cousin had grand mal seizures after tonsillectomy. Past Psychological History: No Psychological Hx Reported Smoking Status: Never smoker Past Alcohol Use History: Rare Past Drug Use History: None Reported - Past Family History Mother Family Medical History: Cancer, CVA/TIA, Diabetes Mellitus, Myocardial Infarction ([place]) Additional Family Medical History / Comment(s): Colon, kidney, breast Cancer. Two maternal aunts had colon cancer and one maternal aunt had breast cancer. Father Family Medical History: Cancer, Deep Vein Thrombosis (DVT) Additional Family Medical History / Comment(s): Prostate and skin cancer. Surgical - Exam Vital Signs Temp Pulse BP 98.3 F 67 164/76 04/11/22 13:34 04/11/22 13:34 04/11/22 13:34 - General well developed, well nourished, no distress - Eyes PERRL - ENT normal pinna - Neck no masses - Respiratory normal expansion - Cardiovascular Rhythm: regular - Abdomen Abdomen: soft, non tender Bariatric Assessment & Plan Plan: Resolving morbid piece. Patient's BMI is 34. Her GERD is minimal and will be observed. She'll follow-up in 4 weeks. Bariatric Checklist Checklist: Plan: Checklist: EGD: 1. Hiatal hernia: 2. H. Pylori: HgbA1c: Vitamin D: Smoking: Never smoker Primary care physician referral: Dr. Gillian Maloney Psychiatry clearance: Cardiology clearance: Sleep study: Diet journal: VTE risk score: VTE risk level: Rehab needs at discharge:
--- NOTE | 2022-04-19 16:36 | P.HPBAR ---
Bariatric H&P - History & Physicial H&P Date: 04/11/22 History & Physicial: Visit/CC: sleeve f/u Patient initial contact: Initial weight: 139.706 kg Initial weight in pounds: 308.00 Height: 5 ft 6 in Initial BMI: 49.7 Last weight: Current weight: 95.708 kg Current weight in pounds: 211.00 Current BMI: 34.0 [place] body weight (based on NIH guidelines): 58.967 kg Excess body weight loss: 54.4% The patient is a 66 year-old F who presents for Bariatric Assessment. Patient resents today for bariatric follow-up. Her current weight is 211 pounds. She previously 214 pounds. She's had some mild GERD. Past Medical History Past Medical History: Diabetes Mellitus, Hyperlipidemia, Hypertension, Renal Disease, Thyroid Disorder Additional Past Medical History / Comment(s): History of kidney stones. "Kidney function fluctuates". Benign ovarian tumor. Heart murmur. Iron deficient anemia- last iron infusion 04-26-21. Hx of elevated calcium. Varicose vein in right leg. History of Any Multi-Drug Resistant Organisms: None Reported Past Surgical History: Bariatric Surgery, Hernia Repair, Hysterectomy, Orthopedic Surgery, Tonsillectomy Additional Past Surgical History / Comment(s): Eye surgery, thyroid biopsy, colonoscopy X2, left breast biopsy-chip present, cyst removed from left breast, EGD, sleeve gastrectomy 05-10-21. Past Anesthesia/Blood Transfusion Reactions: Previous Problems w/ Anesthesia, Family Hisory of Malignant Hyperthermia Additional Past Anesthesia/Blood Transfusion Reaction / Comm: "Dillon horse through my whole body after breast surgery". "After another surgery the same thing happened, had to stay 2 days in the hospital because of it". Cousin had grand mal seizures after tonsillectomy. Past Psychological History: No Psychological Hx Reported Smoking Status: Never smoker Past Alcohol Use History: Rare Past Drug Use History: None Reported - Past Family History Mother Family Medical History: Cancer, CVA/TIA, Diabetes Mellitus, Myocardial Infarction ([place]) Additional Family Medical History / Comment(s): Colon, kidney, breast Cancer. Two maternal aunts had colon cancer and one maternal aunt had breast cancer. Father Family Medical History: Cancer, Deep Vein Thrombosis (DVT) Additional Family Medical History / Comment(s): Prostate and skin cancer. Surgical - Exam Vital Signs Temp Pulse BP 98.3 F 67 164/76 04/11/22 13:34 04/11/22 13:34 04/11/22 13:34 Bariatric Assessment & Plan Plan: Resolving morbid piece. Patient's BMI is 34. Her GERD is minimal and will be observed. She'll follow-up in 4 weeks. Bariatric Checklist Checklist: Plan: Checklist: EGD: 1. Hiatal hernia: 2. H. Pylori: HgbA1c: Vitamin D: Smoking: Never smoker Primary care physician referral: Dr. Gillian Maloney Psychiatry clearance: Cardiology clearance: Sleep study: Diet journal: VTE risk score: VTE risk level: Rehab needs at discharge:
== END | disposition home or self-care (01) ==
LOC: BARWHC3 13:04
PROVIDERS: ATTEND Surgery
DX: E66.01 Morbid (severe) obesity due to excess calories (principal); K21.9 Gastro-esophageal reflux disease without esophagitis; Z68.34 Body mass index [BMI] 34.0-34.9, adult
CPT/HCPCS: 99211

== ENCOUNTER → 2022-04-15 | Outpatient (CLI) | payer MEDICARE, OTHER ==
[2022-04-15 14:08] VITALS: BP 138/75; PULSE 56; RESP 17; TEMP 97.6
--- NOTE | 2022-04-15 14:51 | P.PN ---
Subjective Progress Note Date: 04/15/22 Principal diagnosis: fibrocystic breast disease fibrocystic breast disease left breast mass Radha is a 65-year-old white female status post excision of a lipoma from her left breast on . Additionally she had left axillary skin tags 3 removed which were all benign acrochordon. She had a prior bilateral mammogram 03-21-22 which was BIRADS 3. She is not complaining of any lumps, masses or nodules in her breast. No nipple discharge or skin changes in her breast of concern. The patient has lost approximately 80 pounds, she has had gastric sleeve surgery. CAffiene: tea daily 2 cups/ she stopped the caffiene Nicotine: Negative Theophylline: rarely Hormones: Negative Family history: Mother: colon cancer, kidney cancer, breast cancer maternal aunts two: Breast and colon cancer in 2 aunts maternal uncle: stomach cancer History: Menarche: 9 09/26 breast fed: yes, age at first : 23 menopasue: BENJI at 49 not for cancer BCP: 1 year hormones: none Surgical history: 1. Total abdominal hysterectomy 2. Right 3. Right knee 4. Hernia repair 5. Tonsillectomy 6. Left breast ultrasound-guided core biopsy 7. patient had a gastric sleeve procedure for obesity ( has lost 80 pounds) Patient thinks her hernia was repaired, and is waiting to see what to do about the parathyroid. Medical history: Diabetes A1C is improved High blood pressure High cholesterol Hypothyroid gout anemia heart murmur Social History: smoke: none alcohol: rare drugs: none - Constitutional Constitutional: Denies chills, Denies fever - EENT Eyes: denies blurred vision, denies pain Ears: right: decreased hearing, deny: tinnitus Ears, nose, mouth and throat: Denies headache, Denies sore throat - Breasts Breasts: bilateral: as per HPI - Cardiovascular Cardiovascular: Denies chest pain, Denies shortness of breath - Respiratory Respiratory: Denies cough - Gastrointestinal Gastrointestinal: Denies abdominal pain, Denies diarrhea, Denies nausea, Denies vomiting - Genitourinary (Female) Genitourinary: Reports kidney stones, Denies dysuria, Denies hematuria - Menstruation Menstruation: Reports post hysterectomy - Musculoskeletal Musculoskeletal: Denies myalgias - Integumentary Integumentary: Denies pruritus, Denies rash - Neurological Neurological: Denies numbness, Denies weakness - Psychiatric Psychiatric: Denies anxiety, Denies depression - Endocrine Endocrine: Denies fatigue, Denies weight change - Hematologic/Lymphatic Comment: aspirin - Allergic/Immunologic Allergic/Immunologic: Reports as per HPI Objective - Vital Signs Vital signs: Vital Signs Temp 97.6 F 04/15/22 14:05 Pulse 56 L 04/15/22 14:05 Resp 17 04/15/22 14:05 BP 138/75 04/15/22 14:05 Pulse Ox 99 04/15/22 14:05 FiO2 Intake & Output 04/14/22 04/15/22 04/15/22 18:59 06:59 18:59 Weight 95.708 kg - Exam BMI 34.1 - Constitutional General appearance: Present: cooperative - EENT Eyes: Present: EOMI ENT: Present: hearing grossly normal - Neck Neck: Present: normal ROM - Respiratory Respiratory: bilateral: CTA - Cardiovascular Rhythm: regular Heart sounds: normal: S1, S2 - Gastrointestinal General gastrointestinal: Present: soft - Integumentary Integumentary: Present: normal turgor - Musculoskeletal Musculoskeletal: Present: gait normal - Psychiatric Psychiatric: Present: A&O x's 3, appropriate affect - Additional findings Additional findings: Breast Exam: BRA: 40B inspection: bilateral grade 2/3 ptosis palpation: right breast: Multiple positional exam no dominant masses or nodules of concern Right axilla: No adenopathy of concern Left breast: Multiple positional exam fibrocystic changes or dominant masses or nodules of concern Left axilla: No adenopathy of concern Assessment and Plan Assessment: Impression/Plan: Fibrocystic breast changes Bilateral mammogram BIRAD 3 recommend bilateral mammogram in 6 months Patient has lost approximately 100 pounds since her gastric sleeve surgery; changes in her breast as a result Patient is having parathyroid surgery at [facility] next week. CC: Dr. Sherly Gloria
== END | disposition home or self-care (01) ==
LOC: WWCWWP 13:22
PROVIDERS: ATTEND Surgery
DX: Z53.9 Procedure and treatment not carried out, unspecified reason (principal)

== ENCOUNTER → 2022-07-11 | Outpatient (CLI) | payer MEDICARE, OTHER ==
[2022-07-11 13:33] VITALS: BP 195/74; PULSE 66; RESP 16; TEMP 98.1; BMI 34.7
--- NOTE | 2022-07-11 14:33 | P.HPBAR ---
Bariatric H&P - History & Physicial H&P Date: 07/11/22 History & Physicial: Visit/CC: sleeve f/u Patient initial contact: Initial weight: 139.706 kg Initial weight in pounds: 308.00 Height: 5 ft 6 in Initial BMI: 49.7 Last weight: Current weight: 97.522 kg Current weight in pounds: 215.00 Current BMI: 34.7 [place] body weight (based on NIH guidelines): 58.967 kg Excess body weight loss: 52.2% The patient is a 66 year-old F who presents for Bariatric Assessment. She presents today for sleeve gastrectomy follow-up. Her current weight is 215 pounds. She presented previously weight 211 pounds. She's had some mild GERD Past Medical History Past Medical History: Diabetes Mellitus, Hyperlipidemia, Hypertension, Renal Disease, Thyroid Disorder Additional Past Medical History / Comment(s): History of kidney stones. "Kidney function fluctuates". Benign ovarian tumor. Heart murmur. Iron deficient anemia- last iron infusion 04-26-21. Hx of elevated calcium. Varicose vein in right leg. History of Any Multi-Drug Resistant Organisms: None Reported Past Surgical History: Bariatric Surgery, Hernia Repair, Hysterectomy, Orthopedic Surgery, Tonsillectomy Additional Past Surgical History / Comment(s): Eye surgery, thyroid biopsy, colonoscopy X2, left breast biopsy-chip present, cyst removed from left breast, EGD, sleeve gastrectomy 05-10-21. Past Anesthesia/Blood Transfusion Reactions: Previous Problems w/ Anesthesia, Family Hisory of Malignant Hyperthermia Additional Past Anesthesia/Blood Transfusion Reaction / Comm: "Dillon horse through my whole body after breast surgery". "After another surgery the same thing happened, had to stay 2 days in the hospital because of it". Cousin had grand mal seizures after tonsillectomy. Smoking Status: Never smoker - Past Family History Mother Family Medical History: Cancer, CVA/TIA, Diabetes Mellitus, Myocardial Infarction ([place]) Additional Family Medical History / Comment(s): Colon, kidney, breast Cancer. Two maternal aunts had colon cancer and one maternal aunt had breast cancer. Father Family Medical History: Cancer, Deep Vein Thrombosis (DVT) Additional Family Medical History / Comment(s): Prostate and skin cancer. Surgical - Exam Vital Signs Temp Pulse Resp BP 98.1 F 66 16 195/74 10/17/22 13:31 07/11/22 13:31 07/11/22 13:31 07/11/22 13:31 - General well developed, well nourished, no distress - Eyes PERRL - ENT normal pinna - Respiratory normal expansion - Abdomen Abdomen: soft, non tender Bariatric Assessment & Plan Plan: Status post sleeve gastrectomy. Patient's GERD is minimal will be observed. She'll follow-up in 3 months. Bariatric Checklist Checklist: Plan: Checklist: EGD: 1. Hiatal hernia: 2. H. Pylori: HgbA1c: Vitamin D: Smoking: Never smoker Primary care physician referral: Dr. Gillian Maloney Psychiatry clearance: Cardiology clearance: Sleep study: Diet journal: VTE risk score: VTE risk level: Rehab needs at discharge:
== END | disposition home or self-care (01) ==
LOC: BARWHC3 13:05
PROVIDERS: ATTEND Surgery
DX: Z48.815 Encounter for surgical aftercare following surgery on the digestive system (principal); K21.9 Gastro-esophageal reflux disease without esophagitis
CPT/HCPCS: 99211

== ENCOUNTER → 2022-09-12 | Outpatient (CLI) | payer MEDICARE, OTHER ==
[2022-09-12 12:58] VITALS: BP 160/83; PULSE 55; TEMP 98.4; BMI 35.0
--- NOTE | 2022-09-12 14:13 | P.HPBAR ---
Bariatric H&P - History & Physicial H&P Date: 09/12/22 History & Physicial: Visit/CC: sleeve F/U Patient initial contact: Initial weight: 139.706 kg Initial weight in pounds: 308.00 Height: 5 ft 6 in Initial BMI: 49.7 Last weight: Current weight: 98.43 kg Current weight in pounds: 217.00 Current BMI: 35.0 [place] body weight (based on NIH guidelines): 58.967 kg Excess body weight loss: 51.1% The patient is a 66 year-old F who presents for Bariatric Assessment. Patient presents today for sleeve gastrectomy follow-up. She has some minimal GERD. Her weight is remain stable. Past Medical History Past Medical History: Diabetes Mellitus, Hyperlipidemia, Hypertension, Renal Disease, Thyroid Disorder Additional Past Medical History / Comment(s): History of kidney stones. "Kidney function fluctuates". Benign ovarian tumor. Heart murmur. Iron deficient anemia- last iron infusion 04-26-21. Hx of elevated calcium. Varicose vein in right leg. History of Any Multi-Drug Resistant Organisms: None Reported Past Surgical History: Bariatric Surgery, Hernia Repair, Hysterectomy, Orthopedic Surgery, Tonsillectomy Additional Past Surgical History / Comment(s): Eye surgery, thyroid biopsy, colonoscopy X2, left breast biopsy-chip present, cyst removed from left breast, EGD, sleeve gastrectomy 05-10-21. Past Anesthesia/Blood Transfusion Reactions: Previous Problems w/ Anesthesia, Family Hisory of Malignant Hyperthermia Additional Past Anesthesia/Blood Transfusion Reaction / Comm: "Dillon horse through my whole body after breast surgery". "After another surgery the same thing happened, had to stay 2 days in the hospital because of it". Cousin had grand mal seizures after tonsillectomy. Past Psychological History: No Psychological Hx Reported Smoking Status: Never smoker Past Alcohol Use History: Rare Past Drug Use History: None Reported - Past Family History Mother Family Medical History: Cancer, CVA/TIA, Diabetes Mellitus, Myocardial Infarction ([place]) Additional Family Medical History / Comment(s): Colon, kidney, breast Cancer. Two maternal aunts had colon cancer and one maternal aunt had breast cancer. Father Family Medical History: Cancer, Deep Vein Thrombosis (DVT) Additional Family Medical History / Comment(s): Prostate and skin cancer. Surgical - Exam Vital Signs Temp Pulse BP 98.4 F 55 L 160/83 09/12/22 12:54 09/12/22 12:54 09/12/22 12:54 - General well developed, well nourished, no distress - Eyes PERRL - ENT normal pinna - Neck no masses - Respiratory normal expansion - Cardiovascular Rhythm: regular - Abdomen Abdomen: soft, non tender Bariatric Assessment & Plan Plan: Status post sleeve yesterday. Patient's GERD is minimal old be observed. She'll follow-up in 4 weeks. Bariatric Checklist Checklist: Plan: Checklist: EGD: 1. Hiatal hernia: 2. H. Pylori: HgbA1c: Vitamin D: Smoking: Never smoker Primary care physician referral: Dr. Gillian Maloney Psychiatry clearance: Cardiology clearance: Sleep study: Diet journal: VTE risk score: VTE risk level: Rehab needs at discharge:
== END ==
LOC: BARWHC3 12:31
PROVIDERS: ATTEND Surgery
DX: Z48.815 Encounter for surgical aftercare following surgery on the digestive system (principal); E66.01 Morbid (severe) obesity due to excess calories; Z98.84 Bariatric surgery status; E78.5 Hyperlipidemia, unspecified; I10 Essential (primary) hypertension; E11.9 Type 2 diabetes mellitus without complications; Z91.013 Allergy to seafood; Z88.5 Allergy status to narcotic agent; Z91.040 Latex allergy status; Z91.02 Food additives allergy status; Z68.35 Body mass index [BMI] 35.0-35.9, adult; Z79.899 Other long term (current) drug therapy; Z79.4 Long term (current) use of insulin; E03.9 Hypothyroidism, unspecified; Z79.890 Hormone replacement therapy
CPT/HCPCS: 99211

== ENCOUNTER → 2022-09-22 | Outpatient (CLI) | payer MEDICARE, OTHER ==
--- NOTE | 2022-09-22 13:24 | MM ---
Reason for Exam: Follow-up at short interval from prior study. Last screening mammogram was performed 6 month(s) ago. Patient History: Menarche at age 9. First Full-Term at age 22. Left ovary removed at age 49. Right ovary removed at age 49. Hysterectomy at age 49. Postmenopausal. Patient has history of breast feeding. 08/27/2018, Benign Core Biopsy on the left side. Maternal aunt had breast cancer, age 72. Mother had breast cancer, age 72. Risk Values: Brianda 5 year model risk: 4.1%. NCI Lifetime model risk: 14.3%. Prior Study Comparison: 07/21/2021 Left Diagnostic Mammogram, [facility]. 09/16/2021 Bilateral Diagnostic Mammogram, [facility]. 03/21/2022 Bilateral MG diagnostic mammo w CAD [facility], [facility]. Tissue Density: The breast tissue is heterogeneously dense. This may lower the sensitivity of mammography. Findings: Analyzed By CAD. Pattern appears complex but stable from more recent examinations. The core markers within the left breast. Some chronic nodularity is present on the right. Chronic nodules present within the mid left breast. Overall Assessment: Benign, BI-RAD 2 Management: Screening Mammogram of both breasts in 1 year. A clinical breast exam by your physician is recommended on an annual basis and results should be correlated with mammographic findings. This exam should not preclude additional follow-up of suspicious palpable abnormalities. Results were given to the patient verbally at the time of exam. Electronically signed and approved by: Pierre Hernandez D.O. Radiologis
== END | disposition home or self-care (01) ==
LOC: RADMAMWWP 12:30
PROVIDERS: ATTEND Surgery
DX: R92.8 Other abnormal and inconclusive findings on diagnostic imaging of breast (principal); Z78.0 Asymptomatic menopausal state; Z80.3 Family history of malignant neoplasm of breast; Z98.890 Other specified postprocedural states
CPT/HCPCS: 77066

== ENCOUNTER → 2022-09-29 | Outpatient (CLI) | payer MEDICARE, OTHER ==
[2022-09-29 14:43] VITALS: BP 144/78; PULSE 57; RESP 17; TEMP 98.6
--- NOTE | 2022-09-29 14:55 | P.PN ---
Subjective Progress Note Date: 09/29/22 Principal diagnosis: fibrocystic breast disease fibrocystic breast disease left breast mass Radha is a 66-year-old white female status post excision of a lipoma from her left breast on . Additionally she had left axillary skin tags 3 removed which were all benign acrochordon. She had a prior bilateral mammogram 03-21-22 which was BIRADS 3. She is not complaining of any lumps, masses or nodules in her breast. No nipple discharge or skin changes in her breast of concern. The patient has lost over 100 pounds, she has had gastric sleeve surgery. She had a bilateral mammogram on 09-22-22 which was BIRAD 2. 5 year Brianda risk: 4.1% lifetime risk: 14.3% We have discussed chemoprevention and she has declined. CAffiene: tea daily 2 cups/ she stopped the caffiene Nicotine: Negative Theophylline: rarely Hormones: Negative Family history: Mother: colon cancer, kidney cancer, breast cancer maternal aunts two: Breast and colon cancer in 2 aunts maternal uncle: stomach cancer History: Menarche: 9 09/26 breast fed: yes, age at first : 23 menopasue: BENJI at 49 not for cancer BCP: 1 year hormones: none Surgical history: 1. Total abdominal hysterectomy 2. Right 3. Right knee 4. Hernia repair 5. Tonsillectomy 6. Left breast ultrasound-guided core biopsy 7. patient had a gastric sleeve procedure for obesity ( has lost over 100 pounds) 8. parathyroid surgery at [place] March 2022 Medical history: Diabetes A1C is improved High blood pressure High cholesterol Hypothyroid gout anemia heart murmur Social History: smoke: none alcohol: rare drugs: none - Constitutional Constitutional: Denies chills, Denies fever - EENT Eyes: denies blurred vision, denies pain Ears: right: decreased hearing, deny: tinnitus Ears, nose, mouth and throat: Denies headache, Denies sore throat - Breasts Breasts: bilateral: as per HPI - Cardiovascular Cardiovascular: Denies chest pain, Denies shortness of breath - Respiratory Respiratory: Denies cough - Gastrointestinal Gastrointestinal: Denies abdominal pain, Denies diarrhea, Denies nausea, Denies vomiting - Genitourinary (Female) Genitourinary: Reports kidney stones, Denies dysuria, Denies hematuria - Menstruation Menstruation: Reports post hysterectomy - Musculoskeletal Musculoskeletal: Denies myalgias - Integumentary Integumentary: Denies pruritus, Denies rash - Neurological Neurological: Denies numbness, Denies weakness - Psychiatric Psychiatric: Denies anxiety, Denies depression - Endocrine Endocrine: Denies fatigue, Denies weight change - Hematologic/Lymphatic Comment: aspirin - Allergic/Immunologic Allergic/Immunologic: Reports as per HPI Objective - Vital Signs Vital signs: Vital Signs Temp 98.6 F 09/29/22 14:41 Pulse 57 L 09/29/22 14:41 Resp 17 09/29/22 14:41 BP 144/78 09/29/22 14:41 Pulse Ox 99 09/29/22 14:41 FiO2 Intake & Output 09/28/22 09/29/22 09/29/22 18:59 06:59 18:59 Weight 94.801 kg - Constitutional General appearance: Present: cooperative - EENT Eyes: Present: EOMI ENT: Present: hearing grossly normal - Neck Neck: Present: normal ROM - Respiratory Respiratory: bilateral: CTA - Cardiovascular Rhythm: regular Heart sounds: normal: S1, S2 - Gastrointestinal General gastrointestinal: Present: soft - Integumentary Integumentary: Present: normal turgor - Musculoskeletal Musculoskeletal: Present: gait normal - Psychiatric Psychiatric: Present: A&O x's 3, appropriate affect, intact judgment & insight - Additional findings Additional findings: Breast Exam: BRA: 40B inspection: bilateral grade 2/3 ptosis palpation: right breast: Multi-positional exam no dominant masses or nodules of concern Right axilla: No adenopathy of concern Left breast: Multi-positional exam fibrocystic changes or dominant masses or nodules of concern Left axilla: No adenopathy of concern Assessment and Plan Assessment: Impression: Fibrocystic breast changes Brianda high risk/patient has declined chemoprevention Plan: Repeat bilateral mammogram 1 year with physician exam at that time Patient to follow up sooner any questions or concerns cc: Dr. Yara Tapia:
== END ==
LOC: WWCWWP 13:59
PROVIDERS: ATTEND Surgery
DX: R92.8 Other abnormal and inconclusive findings on diagnostic imaging of breast (principal); E11.9 Type 2 diabetes mellitus without complications; E78.00 Pure hypercholesterolemia, unspecified; E03.9 Hypothyroidism, unspecified; Z88.5 Allergy status to narcotic agent; Z91.040 Latex allergy status; Z91.030 Bee allergy status; Z91.018 Allergy to other foods

== ENCOUNTER → 2022-11-14 | Outpatient (CLI) | payer MEDICARE, OTHER ==
[2022-11-14 13:01] VITALS: BP 174/80; PULSE 55; TEMP 98.6; BMI 36.3
--- NOTE | 2022-12-13 12:18 | P.HPBAR ---
Bariatric H&P - History & Physicial H&P Date: 11/14/22 History & Physicial: Visit/CC: sleeve F/U Patient initial contact: Initial weight: 139.706 kg Initial weight in pounds: 308.00 Height: 5 ft 6 in Initial BMI: 49.7 Last weight: Current weight: 102.058 kg Current weight in pounds: 225.00 Current BMI: 36.3 [place] body weight (based on NIH guidelines): 58.967 kg Excess body weight loss: 46.6% The patient is a 67 year-old F who presents for Bariatric Assessment. Patient resents today for sleeve gastrectomy fall. Patient is doing fairly well. She has had some weight gain. She's also had some mild GERD. Past Medical History Past Medical History: Diabetes Mellitus, Hyperlipidemia, Hypertension, Renal Disease, Thyroid Disorder Additional Past Medical History / Comment(s): History of kidney stones. "Kidney function fluctuates". Benign ovarian tumor. Heart murmur. Iron deficient anemia- last iron infusion 04-26-21. Hx of elevated calcium. Varicose vein in right leg. History of Any Multi-Drug Resistant Organisms: None Reported Past Surgical History: Bariatric Surgery, Hernia Repair, Hysterectomy, Orthopedic Surgery, Tonsillectomy Additional Past Surgical History / Comment(s): Eye surgery, thyroid biopsy, colonoscopy X2, left breast biopsy-chip present, cyst removed from left breast, EGD, sleeve gastrectomy 05-10-21. Past Anesthesia/Blood Transfusion Reactions: Previous Problems w/ Anesthesia, Family Hisory of Malignant Hyperthermia Additional Past Anesthesia/Blood Transfusion Reaction / Comm: "Dillon horse through my whole body after breast surgery". "After another surgery the same thing happened, had to stay 2 days in the hospital because of it". Cousin had grand mal seizures after tonsillectomy. Past Psychological History: No Psychological Hx Reported Smoking Status: Never smoker Past Alcohol Use History: Rare Past Drug Use History: None Reported - Past Family History Mother Family Medical History: Cancer, CVA/TIA, Diabetes Mellitus, Myocardial Infarction ([place]) Additional Family Medical History / Comment(s): Colon, kidney, breast Cancer. Two maternal aunts had colon cancer and one maternal aunt had breast cancer. Father Family Medical History: Cancer, Deep Vein Thrombosis (DVT) Additional Family Medical History / Comment(s): Prostate and skin cancer. Surgical - Exam Vital Signs Temp Pulse BP 98.6 F 55 L 174/80 11/14/22 12:57 11/14/22 12:57 11/14/22 12:57 - General well nourished, no distress - Abdomen Abdomen: soft, non tender Bariatric Assessment & Plan Plan: Status post sleeve gastrectomy. Patient's GERD is minimal will be observed. She will follow-up in 4 weeks. Bariatric Checklist Checklist: Plan: Checklist: EGD: 1. Hiatal hernia: 2. H. Pylori: HgbA1c: Vitamin D: Smoking: Never smoker Primary care physician referral: Dr. Gillian Maloney Psychiatry clearance: Cardiology clearance: Sleep study: Diet journal: VTE risk score: VTE risk level: Rehab needs at discharge:
== END ==
LOC: BARWHC3 12:35
PROVIDERS: ATTEND Surgery
DX: E66.01 Morbid (severe) obesity due to excess calories (principal); E11.9 Type 2 diabetes mellitus without complications; E78.5 Hyperlipidemia, unspecified; I10 Essential (primary) hypertension; E07.9 Disorder of thyroid, unspecified; N18.9 Chronic kidney disease, unspecified; Z91.030 Bee allergy status; Z68.36 Body mass index [BMI] 36.0-36.9, adult; Z88.5 Allergy status to narcotic agent; Z91.040 Latex allergy status; Z91.018 Allergy to other foods
CPT/HCPCS: 99211

== ENCOUNTER → 2022-12-12 | Outpatient (CLI) | payer MEDICARE, OTHER ==
[2022-12-12 13:16] VITALS: BP 154/96; PULSE 65; TEMP 98.1; BMI 35.9
--- NOTE | 2022-12-13 10:24 | P.HPBAR ---
Bariatric H&P - History & Physicial H&P Date: 12/12/22 History & Physicial: Visit/CC: sleeve F/U Patient initial contact: Initial weight: 139.706 kg Initial weight in pounds: 308.00 Height: 5 ft 6 in Initial BMI: 49.7 Last weight: Current weight: 101.151 kg Current weight in pounds: 223.00 Current BMI: 35.9 [place] body weight (based on NIH guidelines): 58.967 kg Excess body weight loss: 47.7% The patient is a 67 year-old F who presents for Bariatric Assessment. Patient presents today for sleeve gastrectomy fall. She's had some complaints of minimal GERD. She denies any dysphagia. She's lost 3 pounds since her last visit. Past Medical History Past Medical History: Diabetes Mellitus, Hyperlipidemia, Hypertension, Renal Disease, Thyroid Disorder Additional Past Medical History / Comment(s): History of kidney stones. "Kidney function fluctuates". Benign ovarian tumor. Heart murmur. Iron deficient anemia- last iron infusion 04-26-21. Hx of elevated calcium. Varicose vein in right leg. History of Any Multi-Drug Resistant Organisms: None Reported Past Surgical History: Bariatric Surgery, Hernia Repair, Hysterectomy, Orthopedic Surgery, Tonsillectomy Additional Past Surgical History / Comment(s): Eye surgery, thyroid biopsy, colonoscopy X2, left breast biopsy-chip present, cyst removed from left breast, EGD, sleeve gastrectomy 05-10-21. Past Anesthesia/Blood Transfusion Reactions: Previous Problems w/ Anesthesia, Family Hisory of Malignant Hyperthermia Additional Past Anesthesia/Blood Transfusion Reaction / Comm: "Dillon horse through my whole body after breast surgery". "After another surgery the same thing happened, had to stay 2 days in the hospital because of it". Cousin had grand mal seizures after tonsillectomy. Past Psychological History: No Psychological Hx Reported Smoking Status: Never smoker Past Alcohol Use History: Rare Past Drug Use History: None Reported - Past Family History Mother Family Medical History: Cancer, CVA/TIA, Diabetes Mellitus, Myocardial Infarction ([place]) Additional Family Medical History / Comment(s): Colon, kidney, breast Cancer. Two maternal aunts had colon cancer and one maternal aunt had breast cancer. Father Family Medical History: Cancer, Deep Vein Thrombosis (DVT) Additional Family Medical History / Comment(s): Prostate and skin cancer. Surgical - Exam Vital Signs Temp Pulse BP 98.1 F 65 154/96 12/12/22 13:13 12/12/22 13:13 12/12/22 13:13 - General well developed, well nourished, no distress - Eyes PERRL - ENT normal pinna - Neck no masses - Respiratory normal expansion - Cardiovascular Rhythm: regular - Abdomen Abdomen: soft, non tender Bariatric Assessment & Plan Plan: Resolving morbid obesity. Patient's GERD is minimal will be observed. She'll follow-up in 4 weeks. BMI is 36. Bariatric Checklist Checklist: Plan: Checklist: EGD: 1. Hiatal hernia: 2. H. Pylori: HgbA1c: Vitamin D: Smoking: Never smoker Primary care physician referral: Dr. Gillian Maloney Psychiatry clearance: Cardiology clearance: Sleep study: Diet journal: VTE risk score: VTE risk level: Rehab needs at discharge:
== END ==
LOC: BARWHC3 12:31
PROVIDERS: ATTEND Surgery
DX: E66.01 Morbid (severe) obesity due to excess calories (principal); E11.9 Type 2 diabetes mellitus without complications; E78.5 Hyperlipidemia, unspecified; I10 Essential (primary) hypertension; E03.9 Hypothyroidism, unspecified; N18.9 Chronic kidney disease, unspecified; Z68.35 Body mass index [BMI] 35.0-35.9, adult; Z91.030 Bee allergy status; Z88.5 Allergy status to narcotic agent; Z91.040 Latex allergy status; Z91.018 Allergy to other foods
CPT/HCPCS: 99211

== ENCOUNTER → 2023-01-09 | Outpatient (CLI) | payer MEDICARE, OTHER ==
[2023-01-09 13:01] VITALS: BP 150/87; PULSE 65; TEMP 97.8; BMI 36.3
--- NOTE | 2023-01-09 16:03 | P.HPBAR ---
Bariatric H&P - History & Physicial H&P Date: 01/09/23 History & Physicial: Visit/CC: sleeve F/U Patient initial contact: Initial weight: 139.706 kg Initial weight in pounds: 308.00 Height: 5 ft 6 in Initial BMI: 49.7 Last weight: Current weight: 102.058 kg Current weight in pounds: 225.00 Current BMI: 36.3 [place] body weight (based on NIH guidelines): 58.967 kg Excess body weight loss: 46.6% The patient is a 67 year-old F who presents for Bariatric Assessment. Patient presents today for sleeve gastrectomy fall. She's had some complaints of GERD. She is gained 2 pounds. Her last visit. Past Medical History Past Medical History: Diabetes Mellitus, Hyperlipidemia, Hypertension, Renal Disease, Thyroid Disorder Additional Past Medical History / Comment(s): History of kidney stones. "Kidney function fluctuates". Benign ovarian tumor. Heart murmur. Iron deficient anemia- last iron infusion 04-26-21. Hx of elevated calcium. Varicose vein in right leg. History of Any Multi-Drug Resistant Organisms: None Reported Past Surgical History: Bariatric Surgery, Hernia Repair, Hysterectomy, Orthopedic Surgery, Tonsillectomy Additional Past Surgical History / Comment(s): Eye surgery, thyroid biopsy, colonoscopy X2, left breast biopsy-chip present, cyst removed from left breast, EGD, sleeve gastrectomy 05-10-21. Past Anesthesia/Blood Transfusion Reactions: Previous Problems w/ Anesthesia, Family Hisory of Malignant Hyperthermia Additional Past Anesthesia/Blood Transfusion Reaction / Comm: "Dillon horse through my whole body after breast surgery". "After another surgery the same thing happened, had to stay 2 days in the hospital because of it". Cousin had grand mal seizures after tonsillectomy. Past Psychological History: No Psychological Hx Reported Smoking Status: Never smoker Past Alcohol Use History: Rare Past Drug Use History: None Reported - Past Family History Mother Family Medical History: Cancer, CVA/TIA, Diabetes Mellitus, Myocardial Infarction ([place]) Additional Family Medical History / Comment(s): Colon, kidney, breast Cancer. Two maternal aunts had colon cancer and one maternal aunt had breast cancer. Father Family Medical History: Cancer, Deep Vein Thrombosis (DVT) Additional Family Medical History / Comment(s): Prostate and skin cancer. Surgical - Exam Vital Signs Temp Pulse BP 97.8 F 65 150/87 01/09/23 12:57 01/09/23 12:57 01/09/23 12:57 - General well developed, well nourished, no distress - Eyes PERRL - ENT normal pinna - Neck no masses - Respiratory normal expansion - Cardiovascular Rhythm: regular - Abdomen Abdomen: soft, non tender Bariatric Assessment & Plan Plan: Patient with stable. Her GERD is minimal and will be observed. Bariatric Checklist Checklist: Plan: Checklist: EGD: 1. Hiatal hernia: 2. H. Pylori: HgbA1c: Vitamin D: Smoking: Never smoker Primary care physician referral: Dr. Gillian Maloney Psychiatry clearance: Cardiology clearance: Sleep study: Diet journal: VTE risk score: VTE risk level: Rehab needs at discharge:
== END ==
LOC: BARWHC3 12:39
PROVIDERS: ATTEND Surgery
DX: E66.01 Morbid (severe) obesity due to excess calories (principal); K21.9 Gastro-esophageal reflux disease without esophagitis; E11.9 Type 2 diabetes mellitus without complications; E78.5 Hyperlipidemia, unspecified; I10 Essential (primary) hypertension; Z68.36 Body mass index [BMI] 36.0-36.9, adult; Z91.02 Food additives allergy status; Z88.5 Allergy status to narcotic agent; Z91.040 Latex allergy status; Z91.048 Other nonmedicinal substance allergy status
CPT/HCPCS: 99211

== ENCOUNTER → 2023-05-22 | Outpatient (CLI) | payer MEDICARE, OTHER ==
[2023-05-22 13:11] VITALS: BP 129/79; PULSE 58; TEMP 98; BMI 37.4
--- NOTE | 2023-06-28 11:10 | P.HPBAR ---
Bariatric H&P - History & Physicial H&P Date: 05/22/23 History & Physicial: Visit/CC: sleeve F/U Patient initial contact: Initial weight: 139.706 kg Initial weight in pounds: 308.00 Height: 5 ft 6 in Initial BMI: 49.7 Last weight: Current weight: 105.233 kg Current weight in pounds: 232.00 Current BMI: 37.4 [place] body weight (based on NIH guidelines): 58.967 kg Excess body weight loss: 42.6% The patient is a 67 year-old F who presents for Bariatric Assessment. Patient presents today for bariatric follow-up. She has minimal complaints of GERD. She's lost 3 pounds her last visit. Past Medical History Past Medical History: Diabetes Mellitus, Hyperlipidemia, Hypertension, Renal Disease, Thyroid Disorder Additional Past Medical History / Comment(s): History of kidney stones. "Kidney function fluctuates". Benign ovarian tumor. Heart murmur. Iron deficient anemia- last iron infusion 04-26-21. Hx of elevated calcium. Varicose vein in right leg. History of Any Multi-Drug Resistant Organisms: None Reported Past Surgical History: Bariatric Surgery, Hernia Repair, Hysterectomy, Orthopedic Surgery, Tonsillectomy Additional Past Surgical History / Comment(s): Eye surgery, thyroid biopsy, colonoscopy X2, left breast biopsy-chip present, cyst removed from left breast, EGD, sleeve gastrectomy 05-10-21. Past Anesthesia/Blood Transfusion Reactions: Previous Problems w/ Anesthesia, Family Hisory of Malignant Hyperthermia Additional Past Anesthesia/Blood Transfusion Reaction / Comm: "Dillon horse through my whole body after breast surgery". "After another surgery the same thing happened, had to stay 2 days in the hospital because of it". Cousin had grand mal seizures after tonsillectomy. Past Psychological History: No Psychological Hx Reported Smoking Status: Never smoker Past Alcohol Use History: Rare Past Drug Use History: None Reported - Past Family History Mother Family Medical History: Cancer, CVA/TIA, Diabetes Mellitus, Myocardial Infarction ([place]) Additional Family Medical History / Comment(s): Colon, kidney, breast Cancer. Two maternal aunts had colon cancer and one maternal aunt had breast cancer. Father Family Medical History: Cancer, Deep Vein Thrombosis (DVT) Additional Family Medical History / Comment(s): Prostate and skin cancer. Surgical - Exam Vital Signs Temp Pulse BP 98.0 F 58 L 129/79 05/22/23 13:08 05/22/23 13:08 05/22/23 13:08 - General well developed, well nourished, no distress - Eyes PERRL - Abdomen Abdomen: soft, non tender Bariatric Assessment & Plan Plan: Status post sleeve gastric. Patient currently observed. She'll follow-up in 4 weeks. Bariatric Checklist Checklist: Plan: Checklist: EGD: 1. Hiatal hernia: 2. H. Pylori: HgbA1c: Vitamin D: Smoking: Never smoker Primary care physician referral: Dr. Gillian Maloney Psychiatry clearance: Cardiology clearance: Sleep study: Diet journal: VTE risk score: VTE risk level: Rehab needs at discharge:
== END ==
LOC: BARWHC3 12:47
PROVIDERS: ATTEND Surgery
DX: E66.01 Morbid (severe) obesity due to excess calories (principal); K21.9 Gastro-esophageal reflux disease without esophagitis; E11.9 Type 2 diabetes mellitus without complications; I10 Essential (primary) hypertension; E78.5 Hyperlipidemia, unspecified; E07.9 Disorder of thyroid, unspecified; Z98.84 Bariatric surgery status; Z68.37 Body mass index [BMI] 37.0-37.9, adult; Z91.030 Bee allergy status; Z88.5 Allergy status to narcotic agent; Z91.040 Latex allergy status; Z91.018 Allergy to other foods; Z79.899 Other long term (current) drug therapy; Z79.84 Long term (current) use of oral hypoglycemic drugs; Z79.890 Hormone replacement therapy; Z79.4 Long term (current) use of insulin
CPT/HCPCS: 99211

== ENCOUNTER → 2023-09-04 | Outpatient (CLI) | payer MEDICARE, OTHER ==
[2023-09-04 08:35] VITALS: BP 151/84; PULSE 59; TEMP 97.9; BMI 36.8
--- NOTE | 2023-09-04 12:27 | P.HPBAR ---
Bariatric H&P - History & Physicial H&P Date: 09/04/23 History & Physicial: Visit/CC: sleeve F/U Patient initial contact: Initial weight: 139.706 kg Initial weight in pounds: 308.00 Height: 5 ft 6 in Initial BMI: 49.7 Last weight: Current weight: 103.419 kg Current weight in pounds: 228.00 Current BMI: 36.8 [place] body weight (based on NIH guidelines): 58.967 kg Excess body weight loss: 44.9% The patient is a 67 year-old F who presents for Bariatric Assessment. Patient presents today for sleeve gastrectomy fall. She has mild GERD. She's gained 2 pounds her last visit. Past Medical History Past Medical History: Diabetes Mellitus, Hyperlipidemia, Hypertension, Renal Disease, Thyroid Disorder Additional Past Medical History / Comment(s): History of kidney stones. "Kidney function fluctuates". Benign ovarian tumor. Heart murmur. Iron deficient anemia- last iron infusion 04-26-21. Hx of elevated calcium. Varicose vein in right leg. History of Any Multi-Drug Resistant Organisms: None Reported Past Surgical History: Bariatric Surgery, Hernia Repair, Hysterectomy, Orthopedic Surgery, Tonsillectomy Additional Past Surgical History / Comment(s): Eye surgery, thyroid biopsy, colonoscopy X2, left breast biopsy-chip present, cyst removed from left breast, EGD, sleeve gastrectomy 05-10-21. Past Anesthesia/Blood Transfusion Reactions: Previous Problems w/ Anesthesia, Family Hisory of Malignant Hyperthermia Additional Past Anesthesia/Blood Transfusion Reaction / Comm: "Dillon horse through my whole body after breast surgery". "After another surgery the same thing happened, had to stay 2 days in the hospital because of it". Cousin had grand mal seizures after tonsillectomy. Past Psychological History: No Psychological Hx Reported Smoking Status: Never smoker Past Alcohol Use History: Rare Past Drug Use History: None Reported - Past Family History Mother Family Medical History: Cancer, CVA/TIA, Diabetes Mellitus, Myocardial Infarction ([place]) Additional Family Medical History / Comment(s): Colon, kidney, breast Cancer. Two maternal aunts had colon cancer and one maternal aunt had breast cancer. Father Family Medical History: Cancer, Deep Vein Thrombosis (DVT) Additional Family Medical History / Comment(s): Prostate and skin cancer. Surgical - Exam Vital Signs Temp Pulse BP 97.9 F 59 L 151/84 09/04/23 08:31 09/04/23 08:31 09/04/23 08:31 - General well developed, well nourished, no distress - Eyes PERRL - ENT normal pinna - Abdomen Abdomen: soft, non tender Bariatric Assessment & Plan Plan: Patient's doing well status post sleeve gastrectomy. She'll follow-up in 4 weeks. Bariatric Checklist Checklist: Plan: Checklist: EGD: 1. Hiatal hernia: 2. H. Pylori: HgbA1c: Vitamin D: Smoking: Never smoker Primary care physician referral: Dr. Gillian Maloney Psychiatry clearance: Cardiology clearance: Sleep study: Diet journal: VTE risk score: VTE risk level: Rehab needs at discharge:
== END ==
LOC: BARWHC3 08:17
PROVIDERS: ATTEND Surgery
DX: E66.01 Morbid (severe) obesity due to excess calories (principal); E11.9 Type 2 diabetes mellitus without complications; E78.5 Hyperlipidemia, unspecified; I10 Essential (primary) hypertension; E07.9 Disorder of thyroid, unspecified; Z98.84 Bariatric surgery status; Z87.442 Personal history of urinary calculi; Z85.43 Personal history of malignant neoplasm of ovary; Z86.79 Personal history of other diseases of the circulatory system; Z68.36 Body mass index [BMI] 36.0-36.9, adult; Z91.030 Bee allergy status; Z88.5 Allergy status to narcotic agent; Z91.040 Latex allergy status; Z91.018 Allergy to other foods; Z79.82 Long term (current) use of aspirin; Z79.84 Long term (current) use of oral hypoglycemic drugs; Z79.899 Other long term (current) drug therapy; Z79.4 Long term (current) use of insulin; Z79.890 Hormone replacement therapy; Z87.448 Personal history of other diseases of urinary system
CPT/HCPCS: 99211

== ENCOUNTER → 2023-09-21 | Outpatient (CLI) | payer MEDICARE, OTHER ==
--- NOTE | 2023-09-25 14:17 | MM ---
Reason for Exam: Screening (asymptomatic). Last screening mammogram was performed 12 month(s) ago. Patient History: Menarche at age 9. First Full-Term at age 22. Left ovary removed at age 49. Right ovary removed at age 49. Hysterectomy at age 49. Postmenopausal. Patient has history of breast feeding. 08/27/2018, Benign Core Biopsy on the left side. Maternal aunt had breast cancer, age 72. Mother had breast cancer, age 72. Risk Values: Brianda 5 year model risk: 4.2%. NCI Lifetime model risk: 13.8%. Prior Study Comparison: 09/16/2021 Bilateral Diagnostic Mammogram, [facility]. 03/21/2022 Bilateral MG diagnostic mammo w CAD [facility], [facility]. 09/22/2022 Bilateral MG diagnostic mammo w CAD [facility], [facility]. Tissue Density: There are scattered fibroglandular densities. Findings: Analyzed By CAD. There is chronic bilateral nodularity and unchanged areas of bilateral asymmetric density. There is no suspicious group of microcalcifications or new suspicious mass in either breast. Overall Assessment: Benign, BI-RAD 2 Management: Screening Mammogram of both breasts in 1 year. See note below in regards to patient's increased 5 year Brianda score. Patient should continue monthly self-breast exams. A clinical breast exam by your physician is recommended on an annual basis. This exam should not preclude additional follow-up of suspicious palpable abnormalities. Note on Brianda scores and lifetime risk: 1. A Brianda score greater than 3% is considered moderate risk. If this is the case, consider specialist referral to assess eligibility for a risk reducing agent. 2. If overall lifetime risk for the development of breast cancer is 20% or higher, the patient may qualify for future screening with alternating mammogram and breast MRI. Electronically signed and approved by: Nadine Chou M.D. Radiologist
== END | disposition home or self-care (01) ==
LOC: RADMAMWWP 15:07
PROVIDERS: ATTEND Surgery
DX: Z12.31 Encounter for screening mammogram for malignant neoplasm of breast (principal); Z78.0 Asymptomatic menopausal state; Z80.3 Family history of malignant neoplasm of breast
CPT/HCPCS: 77067

== ENCOUNTER → 2023-09-29 | Outpatient (CLI) | payer MEDICARE, OTHER ==
--- NOTE | 2023-09-29 10:57 | P.PN ---
Subjective Progress Note Date: 09/29/23 Principal diagnosis: fibrocystic breast disease fibrocystic breast disease left breast mass Radha is a 67-year-old white female status post excision of a lipoma from her left breast on . Additionally she had left axillary skin tags 3 removed which were all benign acrochordon. She had a prior bilateral mammogram 03-21-22 which was BIRADS 3. She is not complaining of any lumps, masses or nodules in her breast. No nipple discharge or skin changes in her breast of concern. The patient has lost over 100 pounds, she has had gastric sleeve surgery. She had a bilateral mammogram on 09-21-23 which was BIRAD 2. Is not complaining of any new lumps masses or nodules of concern in either breast. 5 year Brianda risk: 4.1% lifetime risk: 14.3% We have discussed chemo-prevention and she has declined. CAffiene: tea daily 2 cups/ she stopped the caffeine Nicotine: Negative Theophylline: rarely Hormones: Negative Family history: Mother: colon cancer, kidney cancer, breast cancer maternal aunts two: Breast and colon cancer in 2 aunts maternal uncle: stomach cancer History: Menarche: 9 09/26 breast fed: yes, age at first : 23 menopasue: BENJI at 49 not for cancer BCP: 1 year hormones: none Surgical history: 1. Total abdominal hysterectomy 2. Right 3. Right knee 4. Hernia repair 5. Tonsillectomy 6. Left breast ultrasound-guided core biopsy 7. patient had a gastric sleeve procedure for obesity ( has lost over 100 pounds) 8. parathyroid surgery at [facility] March 2022 Medical history: Diabetes A1C is improved High blood pressure High cholesterol Hypothyroid gout anemia heart murmur Social History: smoke: none alcohol: rare drugs: none - Constitutional Constitutional: Denies chills, Denies fever - EENT Eyes: denies blurred vision, denies pain Ears: right: decreased hearing, deny: tinnitus Ears, nose, mouth and throat: Denies headache, Denies sore throat - Breasts Breasts: bilateral: as per HPI - Cardiovascular Cardiovascular: Denies chest pain, Denies shortness of breath - Respiratory Respiratory: Denies cough - Gastrointestinal Gastrointestinal: Denies abdominal pain, Denies diarrhea, Denies nausea, Denies vomiting - Genitourinary (Female) Genitourinary: Reports kidney stones, Denies dysuria, Denies hematuria - Menstruation Menstruation: Reports post hysterectomy - Musculoskeletal Musculoskeletal: Denies myalgias - Integumentary Integumentary: Denies pruritus, Denies rash - Neurological Neurological: Denies numbness, Denies weakness - Psychiatric Psychiatric: Denies anxiety, Denies depression - Endocrine Endocrine: Denies fatigue, Denies weight change - Hematologic/Lymphatic Comment: aspirin - Allergic/Immunologic Allergic/Immunologic: Reports as per HPI Objective - Vital Signs Vital signs: Intake & Output 09/28/23 09/29/23 09/29/23 18:59 06:59 18:59 Weight 99.79 kg - Constitutional General appearance: Present: cooperative - EENT Eyes: Present: EOMI ENT: Present: hearing grossly normal - Neck Neck: Present: normal ROM - Respiratory Respiratory: bilateral: CTA - Cardiovascular Rhythm: regular Heart sounds: normal: S1, S2 - Gastrointestinal General gastrointestinal: Present: soft - Integumentary Integumentary: Present: normal turgor - Musculoskeletal Musculoskeletal: Present: gait normal - Psychiatric Psychiatric: Present: A&O x's 3, appropriate affect, intact judgment & insight - Additional findings Additional findings: Breast Exam: BRA: 40B inspection: bilateral grade 2/3 ptosis palpation: right breast: Multi-positional exam no dominant masses or nodules of concern Right axilla: No adenopathy of concern Left breast: Multi-positional exam fibrocystic changes or dominant masses or nodules of concern Left axilla: No adenopathy of concern Assessment and Plan Assessment: Impression: Fibrocystic breast changes Brianda high risk/patient has declined chemoprevention Bilateral mammogram [id number] benign BIRADS 2 Plan: Repeat bilateral mammogram 1 year with physician exam at that time Patient to follow up sooner any questions or concerns cc: Dr. Yara Guerra
[2023-09-29 11:08] VITALS: BP 163/82; PULSE 88; RESP 17; TEMP 98.8
== END ==
LOC: WWCWWP 09:18
PROVIDERS: ATTEND Surgery
DX: Z12.31 Encounter for screening mammogram for malignant neoplasm of breast (principal); E11.9 Type 2 diabetes mellitus without complications; E03.9 Hypothyroidism, unspecified; E78.00 Pure hypercholesterolemia, unspecified; N63.20 Unspecified lump in the left breast, unspecified quadrant; N60.19 Diffuse cystic mastopathy of unspecified breast; L91.8 Other hypertrophic disorders of the skin; R01.1 Cardiac murmur, unspecified; M10.9 Gout, unspecified; E66.9 Obesity, unspecified; Z90.710 Acquired absence of both cervix and uterus; Z80.3 Family history of malignant neoplasm of breast; Z91.030 Bee allergy status; Z88.5 Allergy status to narcotic agent; Z91.040 Latex allergy status; Z91.018 Allergy to other foods; Z79.84 Long term (current) use of oral hypoglycemic drugs; Z79.890 Hormone replacement therapy; Z79.82 Long term (current) use of aspirin; Z79.4 Long term (current) use of insulin